=== PATIENT | female | born 1935 | race Caucasian/White ===

== ENCOUNTER 2017-09-24 10:55 | Day surgery (SDC) | payer OTHER ==
[2017-09-24] MEDS ORDERED: NA CHLORIDE 0.9% 1,000 ML ONE (12:01)
[2017-09-24] MEDS ORDERED: LIDOCAINE 4% TOP SOLUTION TOP ONE (13:01)
[2017-09-24] MEDS: GLYCOPYRROLATE 0.2 MG/ML SYR ONE ×2 (13:06→13:15)
[2017-09-24] MEDS: Phenylephrine HCl 10 MG/ML 1 ML VIAL ONE ×2 (13:07→13:26)
[2017-09-24] MEDS: LIDOCAINE VISCOUS 2% SOLN 15 ML UDC ONE ×2 (13:07→13:36)
[2017-09-24] MEDS: LIDOCAINE 1% MPF 5 ML VIAL ONE ×2 (13:08→13:38)
[2017-09-24] MEDS ORDERED: PROPOFOL 200 MG/20 ML VIAL IV ONE (13:34)
[2017-09-24] MEDS ORDERED: LIDOCAINE 1% MPF 5 ML VIAL ONE (13:34)
--- NOTE | 2017-09-24 14:30 | RAD REPORT ---
EXAM DESCRIPTION: RAD - FLUORO-GUIDE FOR BRONCH UPT1HR - 09/24/2017 2:17 pm CLINICAL HISTORY: Right lung infection FINDINGS: One fluoroscopic spot image is submitted. Fluoroscopy time 14 seconds. A bronchoscope has its tip in the right upper lobe Bronchoscopy was performed by Dr. Black
[2017-09-24 14:54] VITALS: TEMP 97.3
[2017-09-24 14:57] VITALS: BP 155/59; O2SAT 99
--- NOTE | 2017-10-30 11:19 | P.OP ---
Date of Service: 09/24/17 (Bronchoscopy with right upper lobe BAL) Findings and Operative Technique Patient is 82 years of age evaluated by me for a right upper lobe cavitary lesions this some changes in the right middle lobe bronchoscopy was done to rule out an infectious process Negative report after draining informed consent from the patient she is premedicated by anesthesia finding normal vocal cords normal trachea normal ping formal right and left-sided bronchial anatomy BAL was performed from the right upper lobe patient tolerated the procedure very well
== END 2017-09-24 14:40 | disposition home or self-care (01) ==
LOC: OR 10:55
PROVIDERS: ATTEND Internal Medicine Sleep Medicine
PROC: 0B9C8ZX Drainage of Right Upper Lung Lobe, Via Natural or Artificial Opening Endoscopic, Diagnostic (ICD-10-PCS; principal; 2017-09-24 12:00)
DX: J44.9 Chronic obstructive pulmonary disease, unspecified (principal); E11.9 Type 2 diabetes mellitus without complications; I10 Essential (primary) hypertension; J30.9 Allergic rhinitis, unspecified
CPT/HCPCS: 31624; 76000; 82962; 87015; 87102; 87116; 87206; 88108; 88305; 88312 ×2; J2370; J7030

== ENCOUNTER 2019-01-18 09:45 | Observation (INO) | payer OTHER ==
[2019-01-18] MEDS ORDERED: METHYLPREDNISOLONE 125 MG INJ ONE (10:34)
[2019-01-18] MEDS ORDERED: LEVALBUTEROL 1.25 MG/3 ML NEB ONE (10:35)
[2019-01-18 10:56] LABS: Basophils % 0.6 % (0-1.3); Hematocrit 42.2 % (36.0-45.0); Lymphocytes % 12.6 % (15.3-44.8); MPV 9.8 fL (7.6-11.3); RBC Red Blood Cell Count 4.72 M/uL (3.86-4.86)
--- NOTE | 2019-01-18 11:05 | RAD REPORT ---
EXAM DESCRIPTION: Miguel Single View01/18/2019 10:56 am CLINICAL HISTORY: Shortness of breath COMPARISON: September 2018 FINDINGS: The approximately 6 centimeter right upper lobe cavitary mass is minimally enlarged from the prior exam. Mild left upper lobe opacity unchanged Mild right basilar opacities have progressed. The heart is mildly to moderately enlarged IMPRESSION: A 6 centimeter right upper lobe cavitary mass mildly enlarged from the prior exam could represent infection or neoplasm Mild right basilar opacities may represent pneumonia
[2019-01-18 11:15] LABS: BUN Blood Urea Nitrogen 11 mg/dL (7-18); Bicarbonate 25 mmol/L (21-32); Glucose Level 157 mg/dL (74-106); NT PRO-BNP 359 pg/mL (<450); Potassium 3.9 mmol/L (3.5-5.1); Sodium Level 139 mmol/L (136-145); Troponin (Emerg Dept Use Only) < 0.02 ng/mL (0.0-0.045)
--- NOTE | 2019-01-18 11:29 | EDPHYS ---
Physician Documentation [facility] Name: Su Clayton Age: 83 yrs Sex: Female : 1935 Arrival Date: 01/18/2019 Time: 09:47 Bed 23 Private MD: ED Physician Valdez Pinto HPI: 01/18 10:36 This 83 yrs old Female presents to ER via Wheelchair with complaints of rn Shortness Of Breath. 10:36 The patient has shortness of breath at rest, with light activity. Onset: The rn symptoms/episode began/occurred at an unknown time. Duration: The symptoms are continuous. The patient's shortness of breath is aggravated by coughing, exertion, talking, walking. Associated signs and symptoms: Pertinent positives: productive cough, Pertinent negatives: fever, hemoptysis, loss of consciousness. Severity of symptoms: At their worst the symptoms were mild in the emergency department the symptoms are unchanged. The patient has not experienced similar symptoms in the past. The patient has not recently seen a physician. REports sob, sent by pcp after during visit noted to have oxygen saturation of 75%, has COPD, reports productive cough, no fever, + congestion and cold symptoms. No chest pain/abd pain/hemoptysis/weight loss. NOt on home O2.. Historical: - Allergies: 10:16 No Known Allergies; ca1 - Home Meds: 12:23 amlodipine 10 mg tab 1 tab once daily [Active]; atorvastatin 40 mg oral tab 1 tab once ca1 daily [Active]; clopidogrel 75 mg oral tab 1 tab once daily [Active]; calcium 600mg 1 tab daily [Active]; vitamin E39-wjict acid 500-400 mcg oral tab [Active]; Vitamin C 500 mg Oral tab [Active]; Combivent Inhl [Active]; glucosamine sulfate oral oral [Active]; MSM 1,000 mg oral tab [Active]; Zyrtec Oral [Active]; Nasal [place] 12 Hour nasal nasal [Active]; - PMHx: 10:16 COPD; Hypertension; niidm; Hyperlipidemia; ca1 - PSHx: 10:16 Carotid surgery; L wrist Surgery; ca1 - Immunization history:: Adult Immunizations not up to date. - Social history:: Smoking status: Patient/guardian denies using tobacco, the patient reports quitting approximately 13 years ago. - Ebola Screening: : Patient negative for fever greater than or equal to 101.5 degrees Fahrenheit, and additional compatible Ebola Virus Disease symptoms Patient denies exposure to infectious person Patient denies travel to an Ebola-affected area in the 21 days before illness onset No symptoms or risks identified at this time. - Family history:: not pertinent. - Hospitalizations: : No recent hospitalization is reported. ROS: 10:36 Constitutional: Negative for fever, chills, and weight loss, Eyes: Negative for injury, rn pain, redness, and discharge, Neck: Negative for injury, pain, and swelling, Cardiovascular: Negative for chest pain, palpitations, + mild edema of feet Respiratory: + sob and cough Abdomen/GI: Negative for abdominal pain, nausea, vomiting, diarrhea, and constipation, MS/Extremity: Negative for injury and deformity, Skin: Negative for injury, rash, and discoloration, Neuro: Negative for headache, weakness, numbness, tingling, and seizure. Exam: 10:38 Constitutional: This is a well developed, well nourished patient who is awake, alert, rn and in no acute distress. Head/Face: Normocephalic, atraumatic. Eyes: Pupils equal round and reactive to light, extra-ocular motions intact. Lids and lashes normal. Conjunctiva and sclera are non-icteric and not injected. Cornea within normal limits. Periorbital areas with no swelling, redness, or edema. ENT: MMM Cardiovascular: Regular rate and rhythm. No pulse deficits. Respiratory: + mild tachypnea, no retractions, + diminished airflow at bases with faint wheezing Abdomen/GI: soft, non-tender MS/ Extremity: Pulses equal, no cyanosis. Neurovascular intact. Full, normal range of motion. Equal circumference. Neuro: Awake and alert, GCS 15, oriented to person, place, time, and situation. Cranial nerves II-XII grossly intact. Motor strength 5/5 in all extremities. Sensory grossly intact. 10:40 ECG was reviewed by the Attending Physician. rn Vital Signs: 10:12 BP 162 / 59; Pulse 90; Resp 22 S; Temp 97.8(O); Pulse Ox 82% on R/A; Weight 72.57 kg ca1 (R); Height 5 ft. 2 in. (157.48 cm) (R); Pain 0/10; 10:12 Pulse Ox 93% on 2 lpm NC; ca1 11:00 BP 155 / 54; Pulse 96; Resp 20 S; Pulse Ox 99% on Nebulizer Mask; ca1 12:16 BP 132 / 54; Pulse 101; Resp 21; Pulse Ox 94% on 2 lpm NC; ca1 12:38 BP 109 / 57; Pulse 98; Resp 20; Pulse Ox 92% on 2 lpm NC; ca1 13:44 BP 129 / 56; Pulse 90; Resp 19; Temp 98.2(O); Pulse Ox 91% on 2 lpm NC; ca1 10:12 Body Mass Index 29.26 (72.57 kg, 157.48 cm) ca1 MDM: 10:08 Patient medically screened. rn 11:26 Differential diagnosis: Chronic Obstructive Pulmonary Disease Myocardial Infarction rn pneumonia, Pneumothorax pulmonary edema, reactive airway disease, Sepsis. Data reviewed: vital signs, nurses notes, lab test result(s), EKG, radiologic studies, plain films, and as a result, I will admit patient. 11:27 Admission orders: after a detailed discussion of the patient's condition and case, the delivery rn orders are written by me. 01/18 10:19 Order name: Blood Culture Adult (2) rn 01/18 10:19 Order name: BMP; Complete Time: 11: rn 01/18 10:19 Order name: CBC with Diff; Complete Time: : rn 01/18 10:19 Order name: NT PRO-BNP; Complete Time: 11: rn 01/18 10:19 Order name: Troponin (emerg Dept Use Only); Complete Time: 11: rn 01/18 10:19 Order name: Flu; Complete Time: 11: rn 01/18 10:19 Order name: XRAY CXR (1 view); Complete Time: 11: rn 01/18 10:19 Order name: EKG; Complete Time: 10:20 rn 01/18 10:19 Order name: Procalcitonin rn 01/18 11:23 Order name: CT Chest W/ Con rn 01/18 10:19 Order name: Cardiac monitoring; Complete Time: 10:33 rn 01/18 10:19 Order name: EKG - Nurse/Tech; Complete Time: 10:33 rn 01/18 10:19 Order name: IV Saline Lock; Complete Time: 10:50 rn 01/18 10:19 Order name: Labs collected and sent; Complete Time: 10:50 rn 01/18 10:19 Order name: O2 Per Protocol; Complete Time: 10:33 rn 01/18 10:19 Order name: O2 Sat Monitoring; Complete Time: 10:33 rn 01/18 12:37 Order name: Diet Heart Healthy; Complete Time: 12:38 ca1 EC:40 Rate is 86 beats/min. Rhythm is regular. QRS Trilla is Normal. NH interval is normal. QRS rn interval is normal. QT interval is normal. No Q waves. T waves are Normal. No ST changes noted. Clinical impression: Normal ECG. Interpreted by me. Reviewed by me. Administered Medications: 10:36 Drug: Xopenex (3) 1.25 mg Route: Inhalation; ca1 10:50 Drug: SOLU-Medrol 125 mg Route: IVP; Site: right antecubital; ca1 12:37 Follow up: Response: No adverse reaction; Marked relief of symptoms ca1 12:00 Drug: Rocephin - (cefTRIAXone) 1 grams Route: IVPB; Infused Over: 30 mins; Site: right ca1 antecubital; 12:37 Follow up: Response: No adverse reaction; IV Status: Completed infusion ca1 12:36 Drug: Zithromax 500 mg Route: IVPB; Infused Over: 1 hrs; Site: right antecubital; ca1 13:50 Follow up: Response: No adverse reaction; IV Status: Completed infusion ca1 Disposition: 01/18/19 11:27 Hospitalization ordered by Rashawn Noguera for Inpatient Admission. Preliminary diagnosis are Pneumonia, Chronic obstructive pulmonary disease with acute lower respiratory infection, Dyspnea, unspecified. - Bed requested for Telemetry/MedSurg (Inpatient). - Status is Inpatient Admission. ca1 - Condition is Stable. - Problem is new. - Symptoms have improved. UTI on Admission? No Signatures: Dispatcher [employer] EDMS Darcy Trent Roman, MD MD rn Acob, SUPRIYA Geronimo RN ca1 Corrections: (The following items were deleted from the chart) 10:38 10:36 Constitutional: Negative for fever, chills, and weight loss, Eyes: Negative for rn injury, pain, redness, and discharge, Neck: Negative for injury, pain, and swelling, Cardiovascular: Negative for chest pain, palpitations, and edema, Respiratory: + sob and cough Abdomen/GI: Negative for abdominal pain, nausea, vomiting, diarrhea, and constipation, rn 12:43 11:27 Hospitalization Ordered by Rashawn Noguera DO for Inpatient Admission. Preliminary bd diagnosis is Pneumonia; Chronic obstructive pulmonary disease with acute lower respiratory infection; Dyspnea, unspecified. Bed requested for Telemetry/MedSurg (Inpatient). Status is Inpatient Admission. Condition is Stable. Problem is new. Symptoms have improved. UTI on Admission? No. rn 14:05 12:43 01/18/2019 11:27 Hospitalization Ordered by Rashawn Noguera DO for Inpatient ca1 Admission. Preliminary diagnosis is Pneumonia; Chronic obstructive pulmonary disease with acute lower respiratory infection; Dyspnea, unspecified. Bed requested for Telemetry/MedSurg (Inpatient). Status is Inpatient Admission. Condition is Stable. Problem is new. Symptoms have improved. UTI on Admission? No. bd
--- NOTE | 2019-01-18 11:29 | ER ---
Nurse's Notes [facility] Name: Su Clayton Age: 83 yrs Sex: Female : 1935 Arrival Date: 01/18/2019 Time: 09:47 Bed 23 Private MD: Diagnosis: Pneumonia;Chronic obstructive pulmonary disease with acute lower respiratory infection;Dyspnea, unspecified Presentation: 01/18 10:12 Presenting complaint: Patient states: "I was at the PCP, they sent me here for for low ca1 O2 level. They said it was a 75%" Reports SOB on exertion for about a month now. DENIES any pain, dizziness, lightheadedness, nausea. Swelling on both feet noted. Transition of care: patient was received from another setting of care (ambulatory primary care physician practice). Onset of symptoms was January 18, 2019. Risk Assessment: Do you want to hurt yourself or someone else? Patient reports no desire to harm self or others. Initial Sepsis Screen: Does the patient meet any 2 criteria? No. Patient's initial sepsis screen is negative. Does the patient have a suspected source of infection? No. Patient's initial sepsis screen is negative. Care prior to arrival: None. 10:12 Method Of Arrival: Wheelchair ca1 10:12 Acuity: MARLINE 2 ca1 Triage Assessment: 10:16 General: Appears in no apparent distress. comfortable, Behavior is calm, cooperative, ca1 appropriate for age. Pain: Denies pain. Respiratory: Reports shortness of breath on exertion since a month ago Onset: The symptoms/episode began/occurred about a month ago, the patient has moderate shortness of breath. Historical: - Allergies: 10:16 No Known Allergies; ca1 - Home Meds: 12:23 amlodipine 10 mg tab 1 tab once daily [Active]; atorvastatin 40 mg oral tab 1 tab once ca1 daily [Active]; clopidogrel 75 mg oral tab 1 tab once daily [Active]; calcium 600mg 1 tab daily [Active]; vitamin D69-ewilz acid 500-400 mcg oral tab [Active]; Vitamin C 500 mg Oral tab [Active]; Combivent Inhl [Active]; glucosamine sulfate oral oral [Active]; MSM 1,000 mg oral tab [Active]; Zyrtec Oral [Active]; Nasal [place] 12 Hour nasal nasal [Active]; - PMHx: 10:16 COPD; Hypertension; niidm; Hyperlipidemia; ca1 - PSHx: 10:16 Carotid surgery; L wrist Surgery; ca1 - Immunization history:: Adult Immunizations not up to date. - Social history:: Smoking status: Patient/guardian denies using tobacco, the patient reports quitting approximately 13 years ago. - Ebola Screening: : Patient negative for fever greater than or equal to 101.5 degrees Fahrenheit, and additional compatible Ebola Virus Disease symptoms Patient denies exposure to infectious person Patient denies travel to an Ebola-affected area in the 21 days before illness onset No symptoms or risks identified at this time. - Family history:: not pertinent. - Hospitalizations: : No recent hospitalization is reported. Screenin:05 Abuse screen: Denies threats or abuse. Denies injuries from another. Nutritional ca1 screening: No deficits noted. Tuberculosis screening: No symptoms or risk factors identified. Fall Risk IV access (20 points). Ambulatory Aid- Crutches/Cane/Walker (15 pts). Total Shaw Fall Scale indicates Low Risk Score (25-44 pts). Fall prevention measures have been instituted. Side Rails Up X 2 Family Present and informed to notify staff if they need to leave bedside As available Patient and Family Educated on Fall Prevention Program and strategies. Assessment: 10:05 General: Appears in no apparent distress. comfortable, Behavior is calm, cooperative, ca1 appropriate for age. 10:05 Pain: Denies pain. Neuro: Level of Consciousness is awake, alert, obeys commands, ca1 Oriented to person, place, time, situation. Cardiovascular: Heart tones S1 S2 present Capillary refill < 3 seconds Patient's skin is warm and dry. Edema is 1+ to left foot, left toes, right foot and right toes Rhythm is sinus rhythm. Respiratory: Reports shortness of breath on exertion since a month ago cough that is productive, Airway is patent Respiratory effort is even, unlabored, Breath sounds are diminished in right posterior middle lobe and right posterior lower lobe. GI: Abdomen is flat, non-distended, Bowel sounds present X 4 quads. Abd is soft and non tender X 4 quads. Patient currently denies nausea. : No deficits noted. No signs and/or symptoms were reported regarding the genitourinary system. EENT: Reports nasal congestion. Derm: Skin is intact, is healthy with good turgor, Skin is pink, warm \\T\\ dry. Musculoskeletal: Circulation, motion, and sensation intact. Capillary refill < 3 seconds, Range of motion: intact in all extremities. 11:00 Reassessment: Patient appears in no apparent distress at this time. Patient and/or ca1 family updated on plan of care and expected duration. Pain level reassessed. Patient is alert, oriented x 3, equal unlabored respirations, skin warm/dry/pink. 11:42 Reassessment: Dr. Noguera at bedside. ca1 12:16 Reassessment: Patient appears in no apparent distress at this time. Patient and/or ca1 family updated on plan of care and expected duration. Pain level reassessed. Patient is alert, oriented x 3, equal unlabored respirations, skin warm/dry/pink. 12:38 Reassessment: Patient appears in no apparent distress at this time. Patient is alert, ca1 oriented x 3, equal unlabored respirations, skin warm/dry/pink. Pt eating crackers, family still at bedside. Awaiting room assignment. 12:51 Reassessment: Called for report nurse will call back. Nurse taking report from ICU. ca1 13:19 Reassessment: Called for report. Nurse will call back. ca1 13:44 Reassessment: Patient appears in no apparent distress at this time. Patient is alert, ca1 oriented x 3, equal unlabored respirations, skin warm/dry/pink. Pt assisted to bedside commode. Vital Signs: 10:12 BP 162 / 59; Pulse 90; Resp 22 S; Temp 97.8(O); Pulse Ox 82% on R/A; Weight 72.57 kg ca1 (R); Height 5 ft. 2 in. (157.48 cm) (R); Pain 0/10; 10:12 Pulse Ox 93% on 2 lpm NC; ca1 11:00 BP 155 / 54; Pulse 96; Resp 20 S; Pulse Ox 99% on Nebulizer Mask; ca1 12:16 BP 132 / 54; Pulse 101; Resp 21; Pulse Ox 94% on 2 lpm NC; ca1 12:38 BP 109 / 57; Pulse 98; Resp 20; Pulse Ox 92% on 2 lpm NC; ca1 13:44 BP 129 / 56; Pulse 90; Resp 19; Temp 98.2(O); Pulse Ox 91% on 2 lpm NC; ca1 10:12 Body Mass Index 29.26 (72.57 kg, 157.48 cm) ca1 ED Course: 09:47 Patient arrived in ED. mr 10:05 Patient has correct armband on for positive identification. Placed in gown. Bed in low ca1 position. Call light in reach. Side rails up X2. monitor car operator on. Pulse ox on. NIBP on. Warm blanket given. Head of bed elevated. 10:08 Valdez Pinto MD is Attending Physician. rn 10:12 Grazyna Brooke RN is Primary Nurse. ca1 10:12 Arm band placed on right wrist. EKG completed in triage. Results shown to MD. ca1 10:14 Triage completed. ca1 10:51 No provider procedures requiring assistance completed. Inserted saline lock: 20 gauge ca1 in right antecubital area, using aseptic technique. Blood collected. 10:51 Initial lab(s) drawn, by me, sent to lab. First set of blood cultures drawn by me. ca1 10:57 XRAY CXR (1 view) In Process Unspecified. EDMS 11:20 Second set of blood cultures drawn by me. jp3 11:27 Rashawn Ngouera DO is Hospitalizing Provider. rn 11:54 CT Chest W/ Con In Process Unspecified. EDMS 13:24 Assisted to bedside commode. jp3 13:43 Patient admitted, IV remains in place. ca1 Administered Medications: 10:36 Drug: Xopenex (3) 1.25 mg Route: Inhalation; ca1 10:50 Drug: SOLU-Medrol 125 mg Route: IVP; Site: right antecubital; ca1 12:37 Follow up: Response: No adverse reaction; Marked relief of symptoms ca1 12:00 Drug: Rocephin - (cefTRIAXone) 1 grams Route: IVPB; Infused Over: 30 mins; Site: right ca1 antecubital; 12:37 Follow up: Response: No adverse reaction; IV Status: Completed infusion ca1 12:36 Drug: Zithromax 500 mg Route: IVPB; Infused Over: 1 hrs; Site: right antecubital; ca1 13:50 Follow up: Response: No adverse reaction; IV Status: Completed infusion ca1 Outcome: 11:27 Decision to Hospitalize by Provider. rn 13:43 Admitted to Med/surg accompanied by tech, family with patient, via stretcher, room 210, ca1 with oxygen, with chart, Report called to SUPRIYA Jamil 13:43 Condition: stable 13:43 Instructed on the need for admit. 14:05 Patient left the ED. ca1 Signatures: Dispatcher [employer] SELENAMS Phillips Lorin PintoValdez MD MD rn Price Croft jp3 Grazyna Brooke RN RN ca1 Corrections: (The following items were deleted from the chart) 10:51 10:51 General: Appears in no apparent distress. comfortable, ca1 ca1
[2019-01-18] MEDS ORDERED: CEFTRIAXONE/SWI 1gm 1 GM/10 ML SYR ONE (12:06)
--- NOTE | 2019-01-18 12:09 | EKG ---
Test Date: 2019-01-18 Test Time: 10:20:08 Mail Inserter: SHOSHANA MEASUREMENT RESULTS: Intervals: Rate: 86 WV: 132 QRSD: 70 QT: 366 QTc: 437 Jackson: P: 61 WV: 132 QRS: 59 T: 66 INTERPRETIVE STATEMENTS: Normal sinus rhythm Normal ECG No previous ECG available for comparison Electronically Signed On 01-18-19 12:08:43 CDT by Nikolai Bejarano
--- NOTE | 2019-01-18 12:12 | RAD REPORT ---
EXAM DESCRIPTION: CT - Thorax W/ Con - 01/18/2019 11:55 am CLINICAL HISTORY: sob COMPARISON: 2018 CT TECHNIQUE: Computed axial tomography of the chest was obtained. 100 cc Isovue 300 was administered i ntravenously. All CT scans are performed using dose optimization technique as appropriate and may include automated exposure control or mA/KV adjustment according to patient size. FINDINGS: Approximately 6 centimeter cavitary mass right upper lobe increased size. A thickened rind peripherally measures 7 millimeters. Rwoj-ea-krzrhgfa right middle lobe opacities. Mild right upper lobe opacities have developed. Tree-in -bud opacities right lung Chronic left upper lobe opacity probably scarring. Mild tree-in-bud opacities lingular No significant mediastinal or hilar lymphadenopathy is seen. A pleural effusion is not present. A pericardial effusion is not seen. IMPRESSION: Enlargement of a 6 centimeter cavitary mass right upper lobe. TB, fungal or other infect ion considered most likely. Bronchogenic carcinoma can also have this appearance. Mild to moderate additional right lung opacities likely pneumonia. Tree-in-bud opacities likely indic ate a component of atypical pneumonia COPD
[2019-01-18] MEDS ORDERED: AZITHROMYCIN IV 500 MG in NA CHLORIDE 0.9% 250 ML IVPB ONE (12:30)
[2019-01-18] MEDS ORDERED: ONDANSETRON 4 MG/2 ML VIAL IV PRN (14:09)
[2019-01-18] MEDS ORDERED: ACETAMINOPHEN 500 MG TAB PO PRN (14:09)
[2019-01-18] MEDS ORDERED: IPRATROPIUM BROM 0.5MG/2.5ML NEB PRN (14:09)
[2019-01-18] MEDS ORDERED: ALBUTEROL 2.5 MG/3 ML NEB SOL NEB PRN (14:09)
[2019-01-18] MEDS ORDERED: BENZONATATE 100 MG CAP PO PRN (14:09)
[2019-01-18 14:22] VITALS: BMI 29.2
--- NOTE | 2019-01-18 14:41 | P.HP ---
Certification for Inpatient Patient admitted to: Inpatient With expected LOS: >2 Midnights Patient will require the following post-hospital care: None Practitioner: I am a practitioner with admitting privileges, knowledge of patient current condition, hospital course, and medical plan of care. Services: Services provided to patient in accordance with Admission requirements found in Title 42 Section 412.3 of the Code of Federal Regulations Patient History Date of Service: 01/18/19 Primary Care Provider: Dr. Spain; Pulmonary-Dr. Black Reason for admission: Shortness of breath History of Present Illness: 83-year-old female with history of COPD, hypertension, hyperlipidemia , CAD and former tobacco use. Patient presented with shortness of breath. Patient came in with shortness of breath. She was actually seen by her PCP earlier. Room-air saturations were on 75%. Patient had reported increase cough , congestion and yellow sputum production. Patient denies any fever, chills. No sick contacts noted. She was sent to the ER for further evaluation. In the ER patient evaluated. Chest x-ray showed right upper lobe cavitary mass mildly enlarged from prior chest x-ray. Right lower lobe pneumonia was also suspected. White count 8.2, hemoglobin 14.2. Sodium 139, potassium 3.9, BUN of 11, creatinine 1.36 with a GFR of 37. Glucose 157. Troponin unremarkable. Pro calcitonin unremarkable. Patient initiated on antibiotic therapy. Patient admitted for further evaluation. When I saw the patient ER, she did not appear septic. Patient stable at this time. Patient with history of mycobacterium infection in 2018. Patient was treated. Allergies No Known Allergies Allergy (Verified 09/24/17 12:53) Home medications list reviewed: Yes Home Medications: Amlodipine [Norvasc*] 10 mg PO DAILY 01/18/19 Aspirin Chewable [Aspirin Chewable*] 81 mg PO DAILY 01/18/19 Atorvastatin Calcium [Lipitor] 40 mg PO BEDTIME 01/18/19 Clopidogrel Bisulfate [Plavix*] 75 mg PO DAILY 01/18/19 Ipratropium/Albuterol Sulfate [Combivent Respimat 20-100 Mcg] 1 puff IN TID PRN 01/18/19 - Past Medical/Surgical History Diabetic: No -: COPD -: Hypertension -: Hyperlipidemia -: CAD -: History of mycobacterium infection, treated -: Former tobacco use -: Arterial bypass of the left carotid artery -: Tubal ligation Psychosocial/ Personal History: Patient is a . She lives by herself. - Family History Family History: Reviewed- Non-Contributory - Social History Smoking Status: Former smoker Alcohol use: No CD- Drugs: No Caffeine use: Yes Place of Residence: Home Review of Systems General: Weakness, As per HPI Eyes: Unremarkable ENT: Nose Congestion, As per HPI Respiratory: Cough, Shortness of Breath, SOB with Excertion, Sputum, As per HPI Cardiovascular: Unremarkable Gastrointestinal: Unremarkable Genitourinary: Unremarkable Musculoskeletal: Unremarkable Integumentary: Unremarkable Neurological: Unremarkable Lymphatics: Unremarkable Physical Examination - Vital Signs Temperature: 98.2 F Blood Pressure: 129/56 Pulse: 90 Respirations: 19 - Physical Exam General: Alert, In no apparent distress, Oriented x3, Cooperative HEENT: Atraumatic Neck: Supple Respiratory: Crackles/rales, Expiratory wheezes, Inspiratory wheezes Cardiovascular: Normal pulses, Regular rate/rhythm Gastrointestinal: Normal bowel sounds, Soft and benign, Non-distended, No tenderness, No masses, No rebound, No guarding Musculoskeletal: No erythema, No tenderness, No warmth Integumentary: No tenderness/swelling, No erythema, No warmth, No cyanosis Neurological: Normal speech, Normal strength at 5/5 x4 extr, Normal tone, Normal affect - Studies Laboratory Data (last 24 hrs) 01/18/19 10:45: WBC 8.2, Hgb 14.2, Hct 42.2, Plt Count 222 01/18/19 10:45: Sodium 139, Potassium 3.9, BUN 11, Creatinine 1.36 H, Glucose 157 H Microbiology Data (last 24 hrs): 01/18/19 10:37 Nasopharnyx Influenza Type A Antigen Screen - Final 01/18/19 10:37 Nasopharnyx Influenza Type B Antigen Screen - Final Assessment and Plan - Plan Impression: Acute on chronic respiratory failure with hypoxia secondary to right lower lobe pneumonia with noted 6 cm cavitary right upper lobe mass complicated with COPD exacerbation Hypertension Hyperlipidemia Carotid arterial disease Former tobacco use History of mycobacterium infection, treated 2017 Plan: Acute on chronic respiratory failure with hypoxia secondary to right lower lobe pneumonia with noted 6 cm cavitary right upper lobe mass complicated with COPD exacerbation: Patient will be admitted for further evaluation. Will maintain oxygen saturations above 93%. Will wean off oxygen. Will start IV antibiotic therapy. Will provide COPD medication. Provide DVT prophylaxis-Lovenox. Pulmonology consulted. Pulmonology has evaluated patient in the past. Will discuss CT finding. Will continue to monitor closely. Await further recommendation. Anticipate discharge in the next 2-4 days pending clinical improvement. Hypertension: Will need to restart home medication and monitor and adjust appropriately. Hyperlipidemia: Will need to restart home medication. Carotid arterial disease: Will need to restart home medic a Former tobacco use: Continue to address lifestyle modification education. History of mycobacterium infection, treated 2018: Previous lab reviewed. Patient treated by pulmonology in the past. Will recheck sputum for AFB, bacterial and fungal. Discharge Plan: Home Plan to discharge in: Greater than 2 days - Advance Directives Does patient have a Living Will: No Does patient have a Durable POA for Healthcare: No - Code Status/Comfort Care Code Status Assessed: Yes (Patient is full code) Time Spent Managing Pts Care (In Minutes): 55
[2019-01-18] MEDS: ENOXAPARIN 40 MG/0.4 ML SQ SCH (15:00)
[2019-01-18] MEDS: CEFTRIAXONE/SWI 1gm 1 GM/10 ML SYR IVP SCH (20:16)
[2019-01-18] MEDS: GUAIFENESIN 600 MG SA TAB PO SCH (20:16)
[2019-01-18] MEDS: predniSONE 10 MG TAB PO SCH (20:17)
[2019-01-18 20:19] LABS: Urine Appearance CLEAR; Urine Bilirubin NEGATIVE (NEG); Urine Blood NEGATIVE (NEG); Urine Color YELLOW; Urine Glucose NEGATIVE (NEG); Urine Microscopic Reflex ORDER UMIC; Urine Protein 1+ (NEG); Urine Specific Gravity >=1.030 (1.005-1.030); Urine Urobilinogen 0.2 mg/dL (0.2-1.0); Urine pH 5.5 (5.0-7.0)
[2019-01-18] MEDS ORDERED: ATORVASTATIN 40 MG TAB PO SCH (21:00)
[2019-01-18 21:13] LABS: Urine Culture Reflex Order REFLEXED
[2019-01-18 21:14] LABS: Urine Bacteria <20 /HPF (<20); Urine RBC <5 /HPF (NONE SEEN)
[2019-01-19 05:51] LABS: Absolute Lymphocytes (CBC) 0.9 K/uL (0.7-4.9); Basophils % 0.1 % (0-1.3); Hematocrit 38.9 % (36.0-45.0); Lymphocytes % 9.6 % (15.3-44.8); MPV 10.3 fL (7.6-11.3); RBC Red Blood Cell Count 4.34 M/uL (3.86-4.86)
[2019-01-19 06:07] LABS: Magnesium 1.8 mg/dL (1.8-2.4); Potassium 4.3 mmol/L (3.5-5.1)
--- NOTE | 2019-01-19 07:56 | RAD REPORT ---
EXAM DESCRIPTION: Miguel Montiel And Cammie (2 Views)01/19/2019 6:55 am CLINICAL HISTORY: Cough COMPARISON: January 18 FINDINGS: No change in the right upper lobe cavitary mass. No change in the mild to moderate right lung opacities consistent with pneumonia. The heart is mildly enlarged Lungs are hyperaerated
[2019-01-19 07:57] VITALS: O2SAT 93
--- NOTE | 2019-01-19 08:09 | P.PN ---
Subjective Date of Service: 01/19/19 Primary Care Provider: Dr. Spain; Pulmonary-Dr. Black Chief Complaint: Shortness of breath Subjective: Improving (Patient feeling better. Less cough today.) Physical Examination - Vital Signs Temperature: 97.6 F Blood Pressure: 152/65 Pulse: 89 Respirations: 18 Pulse Ox (%): 93 - Physical Exam General: Alert, In no apparent distress, Oriented x3, Cooperative HEENT: Atraumatic Neck: Supple Respiratory: Crackles/rales (To the right base), Expiratory wheezes (Mild bilateral) Cardiovascular: Normal pulses, Regular rate/rhythm Gastrointestinal: Normal bowel sounds, Soft and benign, Non-distended, No tenderness, No masses, No rebound, No guarding Musculoskeletal: No erythema, No tenderness, No warmth Integumentary: No tenderness/swelling, No erythema, No warmth, No cyanosis Neurological: Normal speech, Normal strength at 5/5 x4 extr, Normal tone, Normal affect - Studies Laboratory Data (last 24 hrs) 01/18/19 10:45: WBC 8.2, Hgb 14.2, Hct 42.2, Plt Count 222 01/18/19 10:45: Sodium 139, Potassium 3.9, BUN 11, Creatinine 1.36 H, Glucose 157 H Microbiology Data (last 24 hrs): 01/18/19 10:37 Nasopharnyx Influenza Type A Antigen Screen - Final 01/18/19 10:37 Nasopharnyx Influenza Type B Antigen Screen - Final Medications List Reviewed: Yes Assessment & Plan Discharge Plan: Home Plan to discharge in: 48 Hours Physician Review Additional Text: Impression: Acute on chronic respiratory failure with hypoxia secondary to right lower lobe pneumonia with noted 6 cm cavitary right upper lobe mass complicated with COPD exacerbation Hypertension Hyperlipidemia Carotid arterial disease Former tobacco use History of mycobacterium infection, treated 2017 Plan: Acute on chronic respiratory failure with hypoxia secondary to right lower lobe pneumonia with noted 6 cm cavitary right upper lobe mass complicated with COPD exacerbation: Patient has improved. Continue to wean off oxygen. Patient may require oxygen at discharge. Will consult social services specialist to help in this. Continue IV antibiotic therapy. Continue COPD medication. Patient on DVT prophylaxis-Lovenox. Will discuss further with pulmonology. Sputum cultures obtained for AFB, fungal and bacteria. Will have physical therapy assess ambulation. Likely discharge in the next 2-3 days pending clinical improvement. Will discuss plan of care with pulmonology. Hypertension: Norvasc restarted. Will adjust appropriately. Hyperlipidemia: Home medication restarted. Carotid arterial disease: Continue with aspirin/Plavix. Patient on DVT prophylaxis-Lovenox. Former tobacco use: Continue to address lifestyle modification education. History of mycobacterium infection, treated 2018: Previous lab reviewed. Patient treated by pulmonology in the past. CT scan reviewed. Await recommendations by pulmonology. Sputum for AFB, bacterial and fungal obtained. Time Spent Managing Pts Care (In Minutes): 55
--- NOTE | 2019-01-19 08:19 | ECHO ---
HEIGHT: 5 ft 2 in WEIGHT: 160 lb 0 oz DATE OF STUDY: 01/18/[address]: Rashawn Noguera DO 2-DIMENSIONAL: YES M.MODE: YES DOPPLER: YES COLOR FLOW: YES TDS: NO PORTABLE: NO DEFINITY: NO BUBBLE STUDY: NO DIAGNOSIS: SHORTNESS OF BREATH CARDIAC HISTORY: CATHERIZATION: NO SURGERY: NO PROSTHETIC VALVE: NO PACEMAKER: NO MEASUREMENTS (cm) DIASTOLIC (NORMALS) SYSTOLIC (NORMALS) IVSd 0.8 (0.6-1.2) LA Diam 3.0 (1.9-4.0) LVEF 70% LVIDd 4.5 (3.5-5.7) LVIDs 2.7 (2.0-3.5) %FS 40% LVPWd 0.9 (0.6-1.2) Ao Diam 2.4 (2.0-3.7) 2 DIMENSIONAL ASSESSMENT: RIGHT ATRIUM: NORMAL LEFT ATRIUM: NORMAL RIGHT VENTRICLE: NORMAL LEFT VENTRICLE: NORMAL TRICUSPID VALVE: NORMAL MITRAL VALVE: NORMAL PULMONIC VALVE: NORMAL AORTIC VALVE: NORMAL PERICARDIAL EFFUSION: NONE AORTIC ROOT: NORMAL LEFT VENTRICULAR WALL MOTION: NORMAL DOPPLER/COLOR FLOW: NORMAL COMMENTS: NORMAL 2D ECHOCARDIOGRAM WITH DOPPLER. NO WALL MOTION ABNORMALITY. NO EFFUSION. TECHNOLOGIST: Stefani PERSAUD
[2019-01-19] MEDS: predniSONE 10 MG TAB PO SCH (08:34)
[2019-01-19] MEDS: ENOXAPARIN 40 MG/0.4 ML SQ SCH (08:34)
[2019-01-19] MEDS: GUAIFENESIN 600 MG SA TAB PO SCH (08:34)
[2019-01-19] MEDS: CEFTRIAXONE/SWI 1gm 1 GM/10 ML SYR IVP SCH (08:34)
[2019-01-19 08:44] LABS: Blood Morphology Comment NOT SEEN (NOT SEEN); Platelet Estimate ADEQ
[2019-01-19] MEDS ORDERED: AZITHROMYCIN IV 500 MG in NA CHLORIDE 0.9% 250 ML IVPB SCH (09:00)
[2019-01-19] MEDS ORDERED: CLOPIDOGREL 75 MG TABLET PO SCH (09:00)
[2019-01-19] MEDS ORDERED: ASPIRIN EC 81 MG TAB PO SCH (09:00)
[2019-01-19] MEDS ORDERED: MAGNESIUM SULFATE 1 gm IVPB 1 GM/100 ML BAG IV ONE (09:00)
[2019-01-19] MEDS ORDERED: AMLODIPINE 5 MG TAB PO SCH (09:00)
--- NOTE | 2019-01-19 10:25 | P.DS ---
Admission Date: 01/18/19 Discharge Date: 01/19/19 Primary Care Provider: Dr. Spain; Pulmonary-Dr. Black Disposition: CT HOME/HOME HEALTH CARE Discharge Condition: GOOD Reason for Admission: Shortness of breath Consultations: Pulmonary-Dr. Black Procedures: CT scan: FINDINGS: Approximately 6 centimeter cavitary mass right upper lobe increased size. A thickened rind peripherally measures 7 millimeters. [id number] right middle lobe opacities. Mild right upper lobe opacities have developed. Tree-in-bud opacities right lung Chronic left upper lobe opacity probably scarring. Mild tree-in-bud opacities lingular No significant mediastinal or hilar lymphadenopathy is seen. A pleural effusion is not present. A pericardial effusion is not seen. IMPRESSION: Enlargement of a 6 centimeter cavitary mass right upper lobe. TB, fungal or other infection considered most likely. Bronchogenic carcinoma can also have this appearance. Mild to moderate additional right lung opacities likely pneumonia. Tree-in-bud opacities likely indicate a component of atypical pneumonia COPD ECHO: Ejection fraction 70% LEFT VENTRICULAR WALL MOTION: NORMAL DOPPLER/COLOR FLOW: NORMAL COMMENTS: NORMAL 2D ECHOCARDIOGRAM WITH DOPPLER. NO WALL MOTION ABNORMALITY. NO EFFUSION. Medical Problem List: Acute on chronic respiratory failure with hypoxia secondary with COPD exacerbation Hypertension Hyperlipidemia Carotid arterial disease Former tobacco use History of mycobacterium infection, treated 2018 Chronic renal disease stage III Brief History of Present Illness: 83-year-old female with history of COPD, hypertension, hyperlipidemia , CAD and former tobacco use. Patient presented with shortness of breath. Patient came in with shortness of breath. She was actually seen by her PCP earlier. Room-air saturations were on 75%. Patient had reported increase cough , congestion and yellow sputum production. Patient denies any fever, chills. No sick contacts noted. She was sent to the ER for further evaluation. In the ER patient evaluated. Chest x-ray showed right upper lobe cavitary mass mildly enlarged from prior chest x-ray. Right lower lobe pneumonia was also suspected. White count 8.2, hemoglobin 14.2. Sodium 139, potassium 3.9, BUN of 11, creatinine 1.36 with a GFR of 37. Glucose 157. Troponin unremarkable. Pro calcitonin unremarkable. Patient initiated on antibiotic therapy. Patient admitted for further evaluation. When I saw the patient ER, she did not appear septic. Patient stable at this time. Patient with history of mycobacterium infection in 2018. Patient was treated. Hospital Course: Patient presented with acute on chronic respiratory failure with hypoxia. Patient was admitted for further evaluation. White count remained within normal range. Pro calcitonin unremarkable. COPD exacerbation was suspected. Pulmonology was consulted who is very familiar with the patient. CT scan showed enlargement of a 6 cm cavitary right upper lobe area. 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 Pulmonology does not see any evidence of pneumonia at this time. No need for antibiotics. Respiratory failure and hypoxia likely related to COPD exacerbation as patient has severe disease. Patient responded to COPD treatment well. At discharge patient will continue with prednisone 20 mg 1 pill twice daily for 5 days then 1 pill once daily for 5 days. Arrangements for home oxygen and nebulizer machine will be arranged to maintain sats above 93%. Patient will continue with her COPD medication-Combivent 1 puff 3 times a day as needed for shortness of breath. Brovana 1 unit dose twice daily will be added. Recommend follow up with pulmonology in 1-2 weeks to follow up this hospitalization. Sputum cultures for AFB, fungal and bacteria have been sent. This will be followed up by pulmonology. Patient may require further evaluation of the cavitary lesion. Patient may require further intervention like biopsy or bronchoscopy. This will be further addressed by pulmonology. Patient with hyperlipidemia. At discharge she will continue with her medication -Lipitor 40 mg daily. Patient with history of carotid arterial disease. At discharge she will continue with her medication-aspirin 81 mg daily and Plavix 75 mg daily. Patient with hypertension. At discharge she will continue with Norvasc 10 mg daily. Patient with history of chronic renal disease stage III. This has remained stable. Recommend to recheck BMP in 2-4 weeks to monitor her progress. Recommend no further use of nonsteroidal anti-inflammatories. Future medications will need to be renally dosed. Vital Signs/Physical Exam: Temp Pulse Resp BP Pulse Ox 97.6 F 89 18 152/65 H 93 01/19/19 08:08 01/19/19 08:37 01/19/19 08:08 01/19/19 08:37 01/19/19 08:08 General: Alert, In no apparent distress, Oriented x3, Cooperative HEENT: Atraumatic Neck: Supple Respiratory: Clear to auscultation bilaterally, Normal air movement Cardiovascular: Normal pulses, Regular rate/rhythm Gastrointestinal: Normal bowel sounds, Soft and benign, Non-distended, No tenderness, No masses, No rebound, No guarding Musculoskeletal: No erythema, No tenderness, No warmth Integumentary: No tenderness/swelling, No erythema, No warmth, No cyanosis Neurological: Normal speech, Normal strength at 5/5 x4 extr, Normal tone, Normal affect Laboratory Data at Discharge: WBC 9.0 K/uL (4.3-10.9) 01/19/19 05:14 Hgb 12.9 g/dL (12.0-15.0) 01/19/19 05:14 Hct 38.9 % (36.0-45.0) 01/19/19 05:14 Plt Count 224 K/uL (152-406) 01/19/19 05:14 Sodium 141 mmol/L (136-145) 01/19/19 05:14 Potassium 4.3 mmol/L (3.5-5.1) 01/19/19 05:14 BUN 20 mg/dL (7-18) H 01/19/19 05:14 Creatinine 1.30 mg/dL (0.55-1.3) 01/19/19 05:14 Glucose 146 mg/dL (74-106) H 01/19/19 05:14 Magnesium 1.8 mg/dL (1.8-2.4) 01/19/19 05:14 Home Medications: Amlodipine [Norvasc*] 10 mg PO DAILY 01/18/19 Aspirin Chewable [Aspirin Chewable*] 81 mg PO DAILY 01/18/19 Atorvastatin Calcium [Lipitor] 40 mg PO BEDTIME 01/18/19 Clopidogrel Bisulfate [Plavix*] 75 mg PO DAILY 01/18/19 Ipratropium/Albuterol Sulfate [Combivent Respimat 20-100 Mcg] 1 puff IN TID PRN 01/18/19 Arformoterol Tartrate [Brovana] 15 mcg NEB BIDRESP #60 vial.neb 01/19/19 predniSONE [Prednisone*] 20 mg PO SEECOM #15 tab 01/19/19 New Medications: Arformoterol Tartrate [Brovana] 15 mcg NEB BIDRESP #60 vial.neb predniSONE [Prednisone*] 20 mg PO SEECOM #15 tab Patient Discharge Instructions: 1. Recommend follow up with her PCP in 1-2 weeks to follow up this hospitalization. 2. Patient presented with acute on chronic respiratory failure with hypoxia. Patient was admitted for further evaluation. White count remained within normal range. Pro calcitonin unremarkable. COPD exacerbation was suspected. Pulmonology was consulted who is very familiar with the patient. CT scan showed enlargement of a 6 cm cavitary right upper lobe area. 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 Pulmonology does not see any evidence of pneumonia at this time. No need for antibiotics. Respiratory failure and hypoxia likely related to COPD exacerbation as patient has severe disease. Patient responded to COPD treatment well. At discharge patient will continue with prednisone 20 mg 1 pill twice daily for 5 days then 1 pill once daily for 5 days. Arrangements for home oxygen and nebulizer machine will be arranged to maintain sats above 93%. Patient will continue with her COPD medication- Combivent 1 puff 3 times a day as needed for shortness of breath. Brovana 1 unit dose twice daily will be added. Recommend follow up with pulmonology in 1- 2 weeks to follow up this hospitalization. Sputum cultures for AFB, fungal and bacteria have been sent. This will be followed up by pulmonology. Patient may require further evaluation of the cavitary lesion. Patient may require further intervention like biopsy or bronchoscopy. This will be further addressed by pulmonology. 3. Patient with hyperlipidemia. At discharge she will continue with her medication-Lipitor 40 mg daily. 4. Patient with history of carotid arterial disease. At discharge she will continue with her medication-aspirin 81 mg daily and Plavix 75 mg daily. 5. Patient with hypertension. At discharge she will continue with Norvasc 10 mg daily. 6. Patient with history of chronic renal disease stage III. This has remained stable. Recommend to recheck BMP in 2-4 weeks to monitor her progress. Recommend no further use of nonsteroidal anti-inflammatories. Future medications will need to be renally dosed. Diet: AHA Activity: Ad tiffany Time spent managing pt's care (in minutes): 55
--- NOTE | 2019-01-19 11:55 | P.CNS ---
Date of Consult: 01/19/19 Primary Care Provider: Dr. Spain; Pulmonary-Dr. Black Chief Complaint: Shortness of breath abnormal CT scan History of Present Illness: Patient is 83 years of age with a history of atypical mycobacterium infection has been sick for a week complaining of cough congestion postnasal drainage ended up here in the hospital denies any fever chills or weight loss. No chest pain. She has an cavity in the right upper lobe which apparently has a large patient was treated for atypical mycobacterium infection Allergies No Known Allergies Allergy (Verified 09/24/17 12:53) Home Medications: Amlodipine [Norvasc*] 10 mg PO DAILY 01/18/19 Aspirin Chewable [Aspirin Chewable*] 81 mg PO DAILY 01/18/19 Atorvastatin Calcium [Lipitor] 40 mg PO BEDTIME 01/18/19 Clopidogrel Bisulfate [Plavix*] 75 mg PO DAILY 01/18/19 Ipratropium/Albuterol Sulfate [Combivent Respimat 20-100 Mcg] 1 puff IN TID PRN 01/18/19 Arformoterol Tartrate [Brovana] 15 mcg NEB BIDRESP #60 vial.neb 01/19/19 predniSONE [Prednisone*] 20 mg PO SEECOM #15 tab 01/19/19 - Past Medical/Surgical History Diabetic: No -: COPD -: Hypertension -: Hyperlipidemia -: CAD -: History of mycobacterium infection, treated -: Former tobacco use -: Arterial bypass of the left carotid artery -: Tubal ligation Psychosocial/ Personal History: Patient is a . She lives by herself. - Family History Mother Medical History: Cancer - Social History Smoking Status: Current every day smoker Alcohol use: No CD- Drugs: No Caffeine use: Yes Place of Residence: Home Review of Systems 10-point ROS is otherwise unremarkable Respiratory: Cough, Shortness of Breath Cardiovascular: Edema Physical Examination Temp Pulse Resp BP Pulse Ox 97.6 F 89 18 152/65 H 93 01/19/19 08:08 01/19/19 08:37 01/19/19 08:08 01/19/19 08:37 01/19/19 08:08 General: Alert, In no apparent distress, Oriented x3 Neck: Supple Respiratory: Clear to auscultation bilaterally, Expiratory wheezes Cardiovascular: No edema, Regular rate/rhythm, Normal S1 S2 - Problems (1) COPD exacerbation Current Visit: Yes Status: Acute Plan: Patient is 83 years of age admitted with COPD exacerbation evidence of active sepsis pro calcitonin level is negative patchy changes on the CT scan the of our have enlarged right upper lobe cavity with thickening of the cruz sputum cultures are been ordered is no obvious mass on the CT scan he elevate for home oxygen discharged home without antibiotics low-dose prednisone 10 mg twice a day for 10 days blood cultures negative AFBs are pending cavity noted in September will discuss with the patient as an outpatient pending on the cultures patient has bronchodilators
[2019-01-19 12:45] VITALS: BP 111/56; TEMP 98.4
[2019-01-20] MEDS ORDERED: ENOXAPARIN 30 MG/0.3 ML SQ SCH (09:00)
== END 2019-01-19 16:08 | disposition home health service (06) ==
LOC: ER 09:45 → INTOOBSV 12:03 → ERHOLD 12:03 → 2ND 13:44
PROVIDERS: ADMIT Family Medicine; ATTEND Family Medicine
DX: J96.21 Acute and chronic respiratory failure with hypoxia (principal); J18.9 Pneumonia, unspecified organism; J44.0 Chronic obstructive pulmonary disease with (acute) lower respiratory infection; J44.1 Chronic obstructive pulmonary disease with (acute) exacerbation; I12.9 Hypertensive chronic kidney disease with stage 1 through stage 4 chronic kidney disease, or unspecified chronic kidney disease; N18.3 Chronic kidney disease, stage 3 (moderate); E78.5 Hyperlipidemia, unspecified; I25.10 Atherosclerotic heart disease of native coronary artery without angina pectoris; I25.2 Old myocardial infarction; Z87.891 Personal history of nicotine dependence
CPT/HCPCS: 96365; 96368; 93005; 93306; 87040 ×2; 87088; 85025 ×2; 80048 ×2; 36415; 83735; 87205; 84484; 87015; 87206; 84145; 83880; 87116; 87804 ×2; 71260; 71045; 71046; 96375; 99285; Q9967; J0456; J1650; J3475; J0696 ×3; J7030; J2930; G0378 ×3; 81003; 81015; 87086; J7512

== ENCOUNTER 2022-04-06 10:31 | Emergency (ER) | payer OTHER ==
[2022-04-06 11:21] LABS: Absolute Lymphocytes (CBC) 1.3 K/uL (0.7-4.9); Hematocrit 37.5 % (36.0-45.0); Lymphocytes % 17.4 % (15.3-44.8); MCV 90.5 fL (80-100); MPV 8.9 fL (7.6-11.3); RBC Red Blood Cell Count 4.14 M/uL (3.86-4.86)
[2022-04-06 11:27] LABS: Protime INR 1.1
[2022-04-06] MEDS ORDERED: LEVALBUTEROL 1.25 MG/3 ML NEB ONE (11:29)
[2022-04-06] MEDS ORDERED: METHYLPREDNISOLONE 125 MG INJ ONE (11:29)
--- NOTE | 2022-04-06 11:42 | RAD REPORT ---
EXAM DESCRIPTION: RAD - Chest Single View - 04/06/2022 11:28 am CLINICAL HISTORY: Cough Chest pain. COMPARISON: Chest Pa And Lat (2 Views) dated 04/12/2020; Chest Pa And Lat (2 Views) dated 05/27/2019; Chest Pa And Lat (2 Views) dated 02/21/2019; Chest Pa And Lat (2 Views) dated 01/19/2019 FINDINGS: Portable technique limits examination quality. Bilateral pulmonary opacities are noticed, greatest in the right lung base as well as the right upper lobe probably representing infiltrate/pneumonia. Irregular cavitary lesion in the right apex appear stable since prior studies. The heart is mildly enlarged. Aortic atherosclerosis.
[2022-04-06 12:01] LABS: SARS-COV-2 RT PCR NEGATIVE (NEGATIVE)
[2022-04-06 12:03] LABS: Albumin 2.6 g/dL (3.4-5.0); Bilirubin Total 0.7 mg/dL (0.2-1.0); Potassium 3.4 mmol/L (3.5-5.1); Protein, Total 6.4 g/dL (6.4-8.2); Thyroid Stimulating Hormone 2.03 uIU/mL (0.358-3.740)
--- NOTE | 2022-04-06 12:05 | ER ---
Nurse's Notes [facility] Name: Su Clayton Age: 87 yrs Sex: Female : 1935 Arrival Date: 04/06/2022 Time: 10:32 Bed External Waiting [facility] MD: Diagnosis: Pneumonia, unspecified organism;COPD/ Chronic obstructive pulmonary disease with acute lower respiratory infection;COPD/ Chronic obstructive pulmonary disease with (acute) exacerbation;Hypoxemia Presentation: 04/06 10:45 Chief complaint: SOB x 2 days. Coronavirus screen: Client presents with at least one hb sign or symptom that may indicate coronavirus-19. Standard/surgical mask placed on the client. Provider contacted for isolation considerations. Ebola Screen: No symptoms or risks identified at this time. Initial Sepsis Screen: Does the patient meet any 2 criteria? No. Patient's initial sepsis screen is negative. Does the patient have a suspected source of infection? No. Patient's initial sepsis screen is negative. Risk Assessment: Do you want to hurt yourself or someone else? Patient reports no desire to harm self or others. Onset of symptoms was April 05, 2022. 10:45 Method Of Arrival: Wheelchair hb 10:45 Acuity: MARLINE 2 hb Triage Assessment: 10:46 General: Appears distressed, Behavior is cooperative, anxious. Pain: Denies pain. hb Neuro: Level of Consciousness is awake, alert, obeys commands, Oriented to person, place, time, situation. Cardiovascular: Patient's skin is warm and dry. Respiratory: Respiratory effort is labored, Respiratory pattern is tachypnea. Historical: - Allergies: 10:46 No Known Allergies; hb - PMHx: 10:46 COPD; Hyperlipidemia; Hypertension; niidm; hb - Immunization history:: Client reports receiving the 2nd dose of the Covid vaccine. - Family history:: not pertinent. - Social history:: Smoking status: unknown. - Hospitalizations: : No recent hospitalization is reported. Screenin:00 [facility] ED Fall Risk Assessment (Adult) History of falling in the last 3 months, jl7 including since admission No falls in past 3 months (0 pts) Confusion or Disorientation No (0 pts) Intoxicated or Sedated No (0 pts) Impaired Gait No (0 pts) Mobility Assist Device Used No (0 pt) Altered Elimination No (0 pt) Score/Fall Risk Level 0 - 2 = Low Risk Oriented to surroundings, Maintained a safe environment, Educated pt \T\ family on fall prevention, incl call for assistance when getting out of bed, Assessed \T\ reinforced patient's understanding of fall precautions. Abuse screen: Denies threats or abuse. Denies injuries from another. Nutritional screening: No deficits noted. Tuberculosis screening: No symptoms or risk factors identified. Assessment: 11:00 General: Appears distressed, uncomfortable, Behavior is cooperative, appropriate for jl7 age, anxious. Pain: Denies pain. Neuro: Level of Consciousness is awake, alert, obeys commands, Oriented to person, place, time, situation. Cardiovascular: Patient's skin is warm and dry. Rhythm is sinus rhythm. Respiratory: Airway is patent Respiratory effort is even, labored, Respiratory pattern is symmetrical, tachypnea Breath sounds are coarse bilaterally. Derm: Skin is pink, warm \T\ dry. 11:40 Reassessment: Dr. Pinto at bedside discussing results and POC. jl7 12:00 Reassessment: Report received from SUPRIYA Martinez. mb9 12:45 General: Appears in no apparent distress. comfortable, Behavior is calm, cooperative, mb9 appropriate for age. Pain: Denies pain. Neuro: Level of Consciousness is awake, alert, obeys commands, Oriented to person, place, time, situation. Cardiovascular: Heart tones S1 S2 present Rhythm is sinus rhythm. Respiratory: Airway is patent Respiratory effort is even, unlabored, Respiratory pattern is symmetrical, tachypnea Breath sounds are coarse bilaterally. GI: Abdomen is flat, non-distended. : No signs and/or symptoms were reported regarding the genitourinary system. EENT: No signs and/or symptoms were reported regarding the EENT system. Derm: Skin is pink, warm \T\ dry. Musculoskeletal: Range of motion: intact in all extremities. 13:18 Reassessment: Dr. Pinto at bedside speaking to pt and family. mb9 13:45 Reassessment: Pt and son updated on transfer plan and wait time. mb9 14:00 Reassessment: No changes from previously documented assessment. Neuro: Level of mb9 Consciousness is awake, alert, obeys commands, Oriented to person, place, time, situation. Cardiovascular: Rhythm is sinus rhythm. Respiratory: Airway is patent Respiratory effort is even, unlabored, Respiratory pattern is symmetrical, tachypnea. Derm: Skin is pink, warm \T\ dry. 15:08 Pain: Denies pain. Neuro: Level of Consciousness is awake, alert, obeys commands. mb9 Cardiovascular: Rhythm is sinus rhythm. Respiratory: Airway is patent Respiratory effort is even, unlabored, Respiratory pattern is regular, symmetrical. Derm: Skin is pink, warm \T\ dry. 15:30 Reassessment: Pt and son updated on transfer plan and wait time. mb9 16:08 Reassessment: Patient appears in no apparent distress at this time. No changes from kc6 previously documented assessment. Patient and/or family updated on plan of care and expected duration. Pain level reassessed. Patient is alert, oriented x 3, equal unlabored respirations, skin warm/dry/pink. 17:08 Reassessment: Patient appears in no apparent distress at this time. No changes from kc6 previously documented assessment. Patient and/or family updated on plan of care and expected duration. Pain level reassessed. Patient is alert, oriented x 3, equal unlabored respirations, skin warm/dry/pink. 17:41 Reassessment: Pt and son updated on transfer plan and wait time. mb9 18:52 Reassessment: No changes from previously documented assessment. Patient and/or family mb9 updated on plan of care and expected duration. Pain level reassessed. Patient is alert, oriented x 3, equal unlabored respirations, skin warm/dry/pink. 19:19 General: Appears in no apparent distress. General: Behavior is calm, cooperative. as6 20:20 Reassessment: No changes from previously documented assessment. Patient and/or family mb9 updated on plan of care and expected duration. Pain level reassessed. Patient is alert, oriented x 3, equal unlabored respirations, skin warm/dry/pink. Cardiovascular: Rhythm is sinus rhythm. 22:00 Reassessment: No changes from previously documented assessment. Patient and/or family mb9 updated on plan of care and expected duration. Pain level reassessed. Patient is alert, oriented x 3, equal unlabored respirations, skin warm/dry/pink. Cardiovascular: Rhythm is sinus rhythm. Respiratory: Airway is patent Respiratory effort is even, unlabored, Respiratory pattern is regular, symmetrical. 23:00 Reassessment: No changes from previously documented assessment. Patient and/or family mb9 updated on plan of care and expected duration. Pain level reassessed. Patient is alert, oriented x 3, equal unlabored respirations, skin warm/dry/pink. Cardiovascular: Rhythm is sinus rhythm. Respiratory: Airway is patent. 04/07 07:13 Reassessment: Patient appears in no apparent distress at this time. Patient and/or db family updated on plan of care and expected duration. Pain level reassessed. Patient is alert, oriented x 3, equal unlabored respirations, skin warm/dry/pink. 07:40 Reassessment: PATIENT PROVIDED CUP OF ICE WATER. db 09:00 Reassessment: PATIENT EATING BREAKFAST. db 10:59 Reassessment: Patient appears in no apparent distress at this time. No changes from db previously documented assessment. Patient and/or family updated on plan of care and expected duration. Pain level reassessed. Patient is alert, oriented x 3, equal unlabored respirations, skin warm/dry/pink. 14:19 Reassessment: Patient appears in no apparent distress at this time. CALLED AND LEFT A db MESSAGE FOR PATIENT SON MANJINDER TO INFORM OF TRANSFER APPROVAL. MANJINDER [phone]. 14:40 Reassessment: Patient appears in no apparent distress at this time. Patient is alert, db oriented x 3, equal unlabored respirations, skin warm/dry/pink. EMS IS HERE FOR PATIENT. PATIENT SENT WITH EMS AND BELONGINGS. Vital Signs: 04/06 10:45 BP 155 / 61; Pulse 86; Resp 36; Temp 97.7(TE); Pulse Ox 85% on R/A; Weight 61.69 kg; hb Height 5 ft. 2 in. (157.48 cm); Pain 0/10; 11:30 BP 131 / 52; Pulse 76; Resp 15; Pulse Ox 98% ; jl7 12:12 BP 143 / 60; Pulse 94; Resp 25; Pulse Ox 94% 4 lpm ; jl7 12:47 BP 140 / 54; Pulse 92; Resp 25; Pulse Ox 94% on R/A; Pain 0/10; mb9 14:13 BP 123 / 54; Pulse 84; Resp 24; Pulse Ox 100% on R/A; mb9 15:09 BP 129 / 59; Pulse 84; Resp 20; Pulse Ox 99% on 2 lpm NC; Pain 0/10; mb9 17:09 BP 139 / 65; Pulse 80; Resp 25 S; Pulse Ox 98% on 4 lpm NC; kc6 18:52 BP 128 / 53; Pulse 75; Resp 20; Pulse Ox 99% on 2 lpm NC; Pain 0/10; mb9 19:19 BP 104 / 76; Pulse 72; Resp 23 S; Pulse Ox 98% on R/A; as6 21:52 BP 136 / 60; Pulse 71; Resp 22 S; Pulse Ox 97% on 2 lpm NC; as6 22:47 BP 135 / 62; Pulse 69; Resp 21 S; Pulse Ox 100% on 2 lpm NC; as6 23:58 BP 144 / 67; Pulse 70; Resp 20; Pulse Ox 99% on 2 lpm NC; mb9 04/07 03:02 BP 143 / 63; Pulse 75; Resp 20 S; Pulse Ox 99% on 2 lpm NC; as6 06:07 BP 137 / 59; Pulse 77; Resp 19 S; Temp 98.1(O); Pulse Ox 99% on 2 lpm NC; as6 07:00 BP 137 / 59; Pulse 78; Resp 18; Temp 98(O); Pulse Ox 100% on 2 lpm NC; Pain 2/10; db 08:00 BP 156 / 60; Pulse 81; Resp 18; Temp 98; Pulse Ox 98% on 2 lpm NC; db 10:00 BP 146 / 94; Pulse 72; Resp 16; Pulse Ox 98% on 2 lpm NC; db 12:00 BP 143 / 66; Pulse 80; Resp 18; Temp 98(O); Pulse Ox 95% on 2 lpm NC; db 14:00 BP 143 / 86; Pulse 77; Resp 18; Pulse Ox 97% on 2 lpm NC; db 14:30 BP 147 / 68; Pulse 78; Resp 18; Pulse Ox 97% on 2 lpm NC; db 04/06 10:45 Body Mass Index 24.88 (61.69 kg, 157.48 cm) hb ED Course: 04/06 10:32 Patient arrived in ED. am2 10:44 Valdez Pinto MD is Attending Physician. rn 10:45 Patient has correct armband on for positive identification. Client placed on continuous jl7 cardiac and pulse oximetry monitoring. NIBP monitoring applied. Warm blanket given. 10:46 Triage completed. hb 10:46 Arm band placed on. hb 11:03 No provider procedures requiring assistance completed. Inserted saline lock: 20 gauge jl7 in right antecubital area, using aseptic technique. Blood collected. 11:06 Initial lab(s) drawn, by me, sent to lab. First set of blood cultures drawn by me, EKG jl7 done, by ED staff, reviewed by Valdez Pinto MD COVID swab sent to lab. 11:14 Juan Newman RN is Primary Nurse. jl7 11:19 Second set of blood cultures drawn RIGHT AC. vg1 11:30 Chest Single View XRAY In Process Unspecified. EDMS 12:15 intiated a transfer with Vika from the [facility] at the request eb of the patient. 12:21 Report given to SUPRIYA Patrick. jl7 12:32 Primary Nurse role handed off by Juan Newman RN jl7 12:36 Lorin Riggs, SUPRIYA is Primary Nurse. mb9 21:52 Assisted to bedside commode. as6 23:21 Assisted to bedside commode. as6 04/07 10:01 initiated transfer to [facility], pt denied due to all [facility] system being on bd saturation. Per Andra Price. 10:08 initiated transfer to [facility]. bd 10:27 pt denied at [facility] due to [facility]. bd 10:31 initiated trasfer to [facility]. bd 11:00 pt accepted in transfer to [facility]. bd 11:12 pt accepted in transfer to [facility] by dr Fonseca,admin approval given by López Avila. 11:35 Called to give report. No answer. Will call another number. db 11:45 ATTEMPTED TO CALL REPORT TRANSFERRED TO ER. CALL DISCONNECTED. db 12:00 ATTEMPTING TO GIVE REPORT TO [facility] ER. ON HOLD ER NUMBER [phone]. db 13:40 Report given to Report given to SUPRIYA Preston at [facility] ER. db 14:48 Patient transferred, IV remains in place. db 15:18 Attending Physician role handed off by Valdez Pinto MD bd 15:18 Primary Nurse role handed off by Lorin Riggs, SUPRIYA bd 15:20 Lisandro Ram MD is Attending Physician. hang Administered Medications: 04/06 11:38 Drug: SOLU-Medrol (methylPrednisoLONE) 125 mg Route: IVP; Site: left antecubital; jl7 22:48 Follow up: Response: No adverse reaction as6 11:38 Drug: Xopenex (levalbuterol) (3) 1.25 mg Route: Inhalation; jl7 22:48 Follow up: Response: No adverse reaction as6 12:20 Drug: Rocephin (cefTRIAXone) 1 grams Route: IV; Rate: calculated rate; Site: left mb9 antecubital; 12:44 Follow up: Response: No adverse reaction mb9 22:48 Follow up: Response: No adverse reaction; IV Status: Completed infusion; IV Intake: as6 250ml 12:36 Drug: Zithromax (azithromycin) 500 mg Route: IVPB; Infused Over: 1 hrs; Site: left mb9 antecubital; 14:17 Follow up: Response: No adverse reaction; IV Status: Completed infusion mb9 Medication: 11:40 VIS not applicable for this client. jl7 Intake: 22:48 IV: 250ml; Total: 250ml. as6 Outcome: 12:05 ER care complete, transfer ordered by MD. awad 04/07 14:47 Transferred by ground EMS Transfer form completed. X-rays sent w/ patient. Note: db transferred to [facility] Condition: stable Instructed on the need for transfer. 14:49 Patient left the ED. db 15:20 Patient left the ED. ll1 15:24 Patient left the ED. bd Signatures: Dispatcher [employer] EDMS Darcy Trent Corey, MD MD cha Nieto, Roman, MD MD rn Baxter, Heather RN RN Juan Ruff RN RN jl7 Margoth Lozano amIsela Marks Victoria RN RN vg1 Evelyn Morse RN RN ll1 Naresh Espinoza RN RN as6 Shanta Pena RN RN madison6 Monica Garza RN RN db Breneman, Mary Beth RN RN mb9 Corrections: (The following items were deleted from the chart) 04/06 12:01 10:45 BP 155 / 61; Pulse 86bpm; Resp 36bpm; Pulse Ox 95% RA; Temp 97.7F Temporal; 61.69 hb kg; Height 5 ft. 2 in.; BMI: 24.8; Pain 0/10; hb 22:49 20:20 Reassessment: No changes from previously documented assessment. Patient and/or mb9 family updated on plan of care and expected duration. Pain level reassessed. Patient is alert, oriented x 3, equal unlabored respirations, skin warm/dry/pink. mb9 04/07 07:54 07:00 BP 137 / 59; Pulse 78bpm; Resp 18bpm; Pulse Ox 100% RA; db db 13:41 07:00 BP 137 / 59; Pulse 78bpm; Resp 18bpm; Pulse Ox 100% RA; Temp 98F Oral; Pain 2/10; db db 13:41 08:00 BP 156 / 60; Pulse 81bpm; Resp 18bpm; Pulse Ox 98% RA; Temp 98F; db db 13:41 10:00 BP 146 / 94; Pulse 72bpm; Resp 16bpm; Pulse Ox 98% RA; db db
--- NOTE | 2022-04-06 12:05 | EDPHYS ---
Physician Documentation [facility] Name: Su Clayton Age: 87 yrs Sex: Female : 1935 Arrival Date: 04/06/2022 Time: 10:32 Bed External Waiting Private MD: SELENA Physician Lisandro Ram HPI: 04/06 11:58 This 87 yrs old Female presents to ER via Wheelchair with complaints of Breathing rn Difficulty. 11:58 The patient has shortness of breath at rest, with light activity. Onset: The rn symptoms/episode began/occurred yesterday. Duration: The symptoms are continuous. The patient's shortness of breath is aggravated by coughing, exertion, light activity, is alleviated by application of supplemental oxygen. 11:59 Associated signs and symptoms: Pertinent positives: productive cough, Pertinent rn negatives: fever, hemoptysis. Severity of symptoms: At their worst the symptoms were moderate in the emergency department the symptoms are unchanged. The patient has experienced similar episodes in the past. The patient has not recently seen a physician. Historical: - Allergies: 10:46 No Known Allergies; hb - PMHx: 10:46 COPD; Hyperlipidemia; Hypertension; niidm; hb - Immunization history:: Client reports receiving the 2nd dose of the Covid vaccine. - Family history:: not pertinent. - Social history:: Smoking status: unknown. - Hospitalizations: : No recent hospitalization is reported. ROS: 11:59 Constitutional: Negative for fever, chills, and weight loss, Eyes: Negative for injury, rn pain, redness, and discharge, Cardiovascular: Negative for chest pain, palpitations, and edema, Respiratory: + cough and sob Abdomen/GI: Negative for abdominal pain, nausea, vomiting, diarrhea, and constipation, MS/Extremity: Negative for injury and deformity, Skin: Negative for injury, rash, and discoloration, Neuro: Negative for headache, numbness, tingling, and seizure. Exam: 11:59 Constitutional: This is a well developed, well nourished patient who is awake, alert, rn + moderate tachypnea Head/Face: Normocephalic, atraumatic. ENT: dry MM, no stridor Cardiovascular: Regular rate and rhythm . No pulse deficits. Respiratory: + moderate tachypnea, no retractions, coarse bilateral breath sounds Abdomen/GI: Soft, non-tender Skin: Warm, dry MS/ Extremity: Pulses equal, no cyanosis. Neuro: Awake and alert, GCS 15 12:07 ECG was reviewed by the Attending Physician. rn Vital Signs: 10:45 BP 155 / 61; Pulse 86; Resp 36; Temp 97.7(TE); Pulse Ox 85% on R/A; Weight 61.69 kg; hb Height 5 ft. 2 in. (157.48 cm); Pain 0/10; 11:30 BP 131 / 52; Pulse 76; Resp 15; Pulse Ox 98% ; jl7 12:12 BP 143 / 60; Pulse 94; Resp 25; Pulse Ox 94% 4 lpm ; jl7 12:47 BP 140 / 54; Pulse 92; Resp 25; Pulse Ox 94% on R/A; Pain 0/10; mb9 14:13 BP 123 / 54; Pulse 84; Resp 24; Pulse Ox 100% on R/A; mb9 15:09 BP 129 / 59; Pulse 84; Resp 20; Pulse Ox 99% on 2 lpm NC; Pain 0/10; mb9 17:09 BP 139 / 65; Pulse 80; Resp 25 S; Pulse Ox 98% on 4 lpm NC; kc6 18:52 BP 128 / 53; Pulse 75; Resp 20; Pulse Ox 99% on 2 lpm NC; Pain 0/10; mb9 19:19 BP 104 / 76; Pulse 72; Resp 23 S; Pulse Ox 98% on R/A; as6 21:52 BP 136 / 60; Pulse 71; Resp 22 S; Pulse Ox 97% on 2 lpm NC; as6 22:47 BP 135 / 62; Pulse 69; Resp 21 S; Pulse Ox 100% on 2 lpm NC; as6 23:58 BP 144 / 67; Pulse 70; Resp 20; Pulse Ox 99% on 2 lpm NC; mb9 01/09 03:02 BP 143 / 63; Pulse 75; Resp 20 S; Pulse Ox 99% on 2 lpm NC; as6 06:07 BP 137 / 59; Pulse 77; Resp 19 S; Temp 98.1(O); Pulse Ox 99% on 2 lpm NC; as6 07:00 BP 137 / 59; Pulse 78; Resp 18; Temp 98(O); Pulse Ox 100% on 2 lpm NC; Pain /; db 08:00 BP 156 / 60; Pulse 81; Resp 18; Temp 98; Pulse Ox 98% on 2 lpm NC; db 10:00 BP 146 / 94; Pulse 72; Resp 16; Pulse Ox 98% on 2 lpm NC; db 12:00 BP 143 / 66; Pulse 80; Resp 18; Temp 98(O); Pulse Ox 95% on 2 lpm NC; db 14:00 BP 143 / 86; Pulse 77; Resp 18; Pulse Ox 97% on 2 lpm NC; db 14:30 BP 147 / 68; Pulse 78; Resp 18; Pulse Ox 97% on 2 lpm NC; db 04/06 10:45 Body Mass Index 24.88 (61.69 kg, 157.48 cm) hb MDM: 04/06 10:44 Patient medically screened. rn 11:57 Test interpretation: by ED physician or midlevel provider: plain radiologic studies, rn Independent xray interpretation by me: CXR shows bilateral pulmonary opacities concerning for pneumonia.. 11:59 Differential diagnosis: Anemia Bronchitis Chronic Obstructive Pulmonary Disease rn Myocardial Infarction pneumonia, Pneumothorax pulmonary edema, reactive airway disease, Sepsis. Antibiotic administration: Rocephin and Zithromax given. Data reviewed: vital signs, nurses notes, lab test result(s), radiologic studies, plain films, and as a result, I will admit patient. Data interpreted: secured entrance monitor: rate is 86 beats/min, rhythm is normal sinus rhythm, regular, with no ectopy, Interpretation: normal rate, normal rhythm, Pulse oximetry: on room air is 85 %. Interpretation: hypoxia. Counseling: I had a detailed discussion with the patient and/or guardian regarding: the historical points, exam findings, and any diagnostic results supporting the discharge/admit diagnosis, lab results, radiology results, the need for further work-up and treatment in the hospital, the need to transfer to another facility, insurance not accepted here. Response to treatment: the patient's symptoms have mildly improved after treatment, and as a result, I will admit patient. Admission orders: after a detailed discussion of the patient's condition and case, the admit orders are written by me. ED course: Pt with bilateral pneumonia on CXR with moderate COPD exacerbation. Does not require intubation or Bipap at this time. Pt needs to be admitted, but notified that she has [employer] insurance, not accepted here, will attempt transfer for insurance reasons. Care of this patient altered due to insurance coverage in terms of SDOH.. 04/06 10:54 Order name: Blood Culture Adult (2) rn 04/06 10:54 Order name: CBC with Diff; Complete Time: 11:46 rn 04/06 12:06 Interpretation: Within normal limits. rn 04/06 10:54 Order name: CMP; Complete Time: 12:05 rn 04/06 12:05 Interpretation: Normal except: K 3.4; GLUC 120; CRE 1.03. rn 04/06 10:54 Order name: Lactate w/ 2H reflex if indic.; Complete Time: 11:46 rn 04/06 12:06 Interpretation: Within normal limits. rn 04/06 10:54 Order name: Protime (+inr); Complete Time: 11:46 rn 04/06 10:54 Order name: Ptt, Activated; Complete Time: 11:46 rn 04/06 10:54 Order name: Chest Single View XRAY; Complete Time: 11:46 rn 04/06 12:06 Interpretation: Abnormal. rn 04/06 10:54 Order name: COVID-19/FLU A+B; Complete Time: 12:05 rn 04/06 12:05 Interpretation: Within normal limits. rn 04/06 11:36 Order name: NT PRO-BNP; Complete Time: 12:05 EDMS 04/06 12:05 Interpretation: Abnormal. rn 04/06 11:36 Order name: Thyroid Stimulating Hormone; Complete Time: 12:05 EDMS 04/06 10:54 Order name: EKG; Complete Time: 10:54 rn 04/06 10:54 Order name: Accucheck; Complete Time: 11:38 rn 04/06 10:54 Order name: Cardiac monitoring; Complete Time: 11:15 rn 04/06 10:54 Order name: EKG - Nurse/Tech; Complete Time: 11:15 rn 04/06 10:54 Order name: IV Saline Lock - Large Bore; Complete Time: 11:15 rn 04/06 10:54 Order name: Labs collected and sent; Complete Time: 11:15 rn 04/06 10:54 Order name: O2 Per Protocol; Complete Time: 11:15 rn 04/06 10:54 Order name: O2 Sat Monitoring; Complete Time: 11:15 rn 04/06 10:54 Order name: Vital Signs; Complete Time: 11:15 rn 04/07 07:28 Order name: Diet Heart Healthy; Complete Time: 07:29 bd EC:07 Rate is 80 beats/min. Rhythm is regular. QRS [place] is Normal. VA interval is normal. QRS rn interval is normal. QT interval is normal. No Q waves. T waves are Normal. No ST changes noted. Clinical impression: Normal ECG. Interpreted by me. Reviewed by me. Administered Medications: 11:38 Drug: SOLU-Medrol (methylPrednisoLONE) 125 mg Route: IVP; Site: left antecubital; jl7 22:48 Follow up: Response: No adverse reaction as6 11:38 Drug: Xopenex (levalbuterol) (3) 1.25 mg Route: Inhalation; jl7 22:48 Follow up: Response: No adverse reaction as6 12:20 Drug: Rocephin (cefTRIAXone) 1 grams Route: IV; Rate: calculated rate; Site: left mb9 antecubital; 12:44 Follow up: Response: No adverse reaction mb9 22:48 Follow up: Response: No adverse reaction; IV Status: Completed infusion; IV Intake: as6 250ml 12:36 Drug: Zithromax (azithromycin) 500 mg Route: IVPB; Infused Over: 1 hrs; Site: left mb9 antecubital; 14:17 Follow up: Response: No adverse reaction; IV Status: Completed infusion mb9 Disposition: :59 Critical Care:. rn Disposition Summary: 04/06/22 12:05 Transfer Ordered Reason: Higher level of care rn Condition: Stable rn Problem: new rn Symptoms: have improved ostomy rn Location: Other Acute Care Facility(04/07/22 15:23) [facility] Accepting Physician: [facility]Datta [facility](04/07/22 15:24) Diagnosis - Pneumonia, unspecified organism rn - COPD/ Chronic obstructive pulmonary disease with acute lower respiratory infection rn - COPD/ Chronic obstructive pulmonary disease with (acute) exacerbation rn - Hypoxemia rn Forms: - Medication Reconciliation Form rn - SBAR form internal review and audit compliance time excluding procedures: 59 Critical care time: Bedside Care: 35 minutes. Total time: 35 minutes rn Signatures: Dispatcher [employer] EDDarcy Hall Corey, MD MD cha Nieto, Roman, MD MD rn Baxter, Heather, RN RN hb Juan Newman, RN RN jl7 Evelyn Morse RN RN ll1 Monica Garza RN RN Lorin Riggs, RN RN mb9 Naresh Espinoza RN as6 Corrections: (The following items were deleted from the chart) 04/07 14:49 04/06 12:05 Dr. ritesh doe 04/07 15:20 14:49 Dr. doe [facility] 15:23 04/06 12:05 [facility] ritesh [facility] 04/07 15:23 15:20 Dr. peña [facility] 15:24 15:23 , [facility]
[2022-04-06] MEDS ORDERED: CEFTRIAXONE 1000 MG/VIAL ONE (12:22)
[2022-04-06] MEDS ORDERED: AZITHROMYCIN 500 MG INJ IVPB ONE (12:22)
[2022-04-06] MEDS ORDERED: NA CHLORIDE 0.9% 250 ML ONE (12:22)
--- NOTE | 2022-04-07 16:29 | EKG ---
Test Date: 2022-04-06 Test Time: 10:53:01 Mechanical Engineering Technologist: CHYNA MEASUREMENT RESULTS: Intervals: Rate: 80 AR: 114 QRSD: 76 QT: 358 QTc: 412 Shoup: P: 63 AR: 114 QRS: 30 T: 45 INTERPRETIVE STATEMENTS: Sinus rhythm with premature supraventricular complexes Otherwise normal ECG Compared to ECG 01/18/2019 10:20:08 Atrial premature complex(es) now present Electronically Signed On 04-07-22 16:27:04 REMEDIAL TEACHER by Bonifacio Petersen
[2022-04-07 16:32] VITALS: TEMP 98
[2022-04-07 16:37] VITALS: O2SAT 97
[2022-04-07 16:38] VITALS: BP 147/68
== END 2022-04-07 15:24 ==
LOC: ER 10:31
DX: J18.9 Pneumonia, unspecified organism (principal); J44.0 Chronic obstructive pulmonary disease with (acute) lower respiratory infection; J44.1 Chronic obstructive pulmonary disease with (acute) exacerbation; R09.02 Hypoxemia; I10 Essential (primary) hypertension; Z20.822 Contact with and (suspected) exposure to COVID-19
CPT/HCPCS: 93005; 87040 ×2; 85025; 36415; 85610; 83605; 85730; 84443; 80053; 83880; 0240U; 71045; J7614; J0456; J7050; J2930; 96365; 96366; 96375; 99285

== ENCOUNTER 2022-07-12 12:28 | Inpatient (IN) | payer OTHER ==
--- NOTE | 2022-07-12 13:33 | RAD REPORT ---
EXAM DESCRIPTION: RAD - Chest Single View - 07/12/2022 1:26 pm CLINICAL HISTORY: weakness COMPARISON: Chest Single View dated 07/02/2022; Chest Single View dated 04/06/2022; Chest Pa And Lat (2 Views) dated 04/12/2020; Chest Pa And Lat (2 Views) dated 05/27/2019; Chest Abd Pelvis Wo Con dated 07/02 FINDINGS: Lines: None. Lungs: Similar cavitary changes in the right upper lung. Background emphysema. Scarring in the right lung base is unchanged. Pleural: No significant pleural effusions or pneumothorax. Cardiac: The heart size is within normal limits. Mediastinum: Within normal limits. Bones: No acute fractures. Other: Surgical clips at the base of the neck. IMPRESSION: No significant change compared with the CT from 07/02/2022. Cavitary changes at the righ t lung apex as well as other chronic changes are similar. No definite acute process.
[2022-07-12 14:23] LABS: Absolute Lymphocytes (CBC) 1.6 K/uL (0.7-4.9); Lymphocytes % 15.1 % (15.3-44.8); MCV 89.6 fL (80-100); MPV 9.1 fL (7.6-11.3)
[2022-07-12 14:26] LABS: Protime INR 1.11
[2022-07-12 14:36] LABS: Albumin 3.2 g/dL (3.4-5.0); Bilirubin Total 0.9 mg/dL (0.2-1.0); Potassium 3.1 mEq/L (3.5-5.1)
[2022-07-12] MEDS ORDERED: NS KCL 20 MEQ IV ONE (14:54)
--- NOTE | 2022-07-12 15:30 | RAD REPORT ---
EXAM DESCRIPTION: CTAbdomen Pelvis Wo Contrast - 07/12/2022 3:05 pm CLINICAL HISTORY: ABD PAIN COMPARISON: Chest Abd Pelvis Wo Con dated 07/02/2022 TECHNIQUE: CT of the abdomen and pelvis was performed. All CT scans are performed using dose optimization technique as appropriate and may include automated exposure control or mA/KV adjustment according to patient size. FINDINGS: Lower chest: Similar small areas of subpleural consolidation in the right lower lobe. Burak nary artery calcifications. Small hiatal hernia. Fluid in distal esophagus could reflect reflux. Calc ified right lower lobe nodule. Liver: No acute abnormality or suspicious lesions. Biliary: Cholelithiasis. Stomach: No significant focal abnormality. Duodenum: No significant focal abnormality. Pancreas: No significant abnormality. Spleen: No significant abnormality. Adrenal: No suspicious lesions. Kidney/ureter: No hydronephrosis. No renal calculi. Retroperitoneum: No retroperitoneal adenopathy. Vascular: No aneurysm. Bowel: Normal appendix. Diverticulosis without diverticulitis. Peritoneum: No ascites or free air. Bladder: Grossly unremarkable. Reproductive: No adnexal masses. Bones: No acute fracture. Multilevel degenerative changes are present in the spine. Other: n/a IMPRESSION: No acute intra-abdominal or pelvic finding. Normal appendix. No urinary tract calculi or bowel obstruction. Cholelithiasis without CT evidence acute cholecystitis.
--- NOTE | 2022-07-12 16:01 | EDPHYS ---
Physician Documentation [facility] Name: Su Clayton Age: 87 yrs Sex: Female : 1935 Arrival Date: 07/12/2022 Time: 12:28 Bed 18 Private MD: Harry Hamm ED Physician Lisandro Ram HPI: 07/12 14:53 This 87 yrs old Female presents to ER via Wheelchair with complaints of Low BP, snw Dizziness, Weakness, Shortness Of Breath. 14:53 weak, dizzy, short of breath, and noted to be hypotensive at home. Recently discharged snw from inpatient status here at [facility]. Onset: The symptoms/episode began/occurred acutely, and became persistent. Severity of symptoms: At their worst the symptoms were moderate in the emergency department the symptoms are unchanged. The patient has experienced similar episodes in the past. as noted. Historical: - Allergies: 12:36 No Known Allergies; iw - PMHx: 12:36 COPD; Hyperlipidemia; Hypertension; Lung mass; niidm; iw - PSHx: 12:36 Bipass; Carotid artery; iw - Immunization history:: Adult Immunizations up to date, Client reports receiving the 2nd dose of the Covid vaccine. - Social history:: Smoking status: Patient/guardian denies using tobacco. ROS: 14:50 Eyes: Negative for injury, pain, redness, and discharge, ENT: Negative for injury, snw pain, and discharge, Neck: Negative for injury, pain, and swelling, Cardiovascular: Negative for chest pain, palpitations, and edema, Respiratory: Negative for shortness of breath, cough, wheezing, and pleuritic chest pain. 14:50 Back: Negative for injury and pain, : Negative for injury, bleeding, discharge, and swelling, MS/Extremity: Negative for injury and deformity, Skin: Negative for injury, rash, and discoloration. 14:50 Constitutional: Positive for body aches, fatigue, malaise, hypotension. 14:50 Abdomen/GI: Positive for abdominal pain, nausea. 14:50 Neuro: Positive for weakness. Exam: 14:48 Head/Face: Normocephalic, atraumatic. Eyes: Pupils equal round and reactive to light, snw extra-ocular motions intact. Lids and lashes normal. Conjunctiva and sclera are non-icteric and not injected. Cornea within normal limits. Periorbital areas with no swelling, redness, or edema. 14:48 Neck: Trachea midline, no thyromegaly or masses palpated, and no cervical lymphadenopathy. Supple, full range of motion without nuchal rigidity, or vertebral point tenderness. No Meningismus. Chest/axilla: Normal chest wall appearance and motion. Nontender with no deformity. No lesions are appreciated. Cardiovascular: Regular rate and rhythm with a normal S1 and S2. No gallops, murmurs, or rubs. Normal PMI, no JVD. No pulse deficits. 14:48 Back: No spinal tenderness. No costovertebral tenderness. Full range of motion. 14:48 Neuro: Awake and alert, GCS 15, oriented to person, place, time, and situation. Cranial nerves II-XII grossly intact. Motor strength 5/5 in all extremities. Sensory grossly intact. Cerebellar exam normal. Normal gait. Psych: Awake, alert, with orientation to person, place and time. Behavior, mood, and affect are within normal limits. 14:48 Constitutional: The patient appears alert, awake, frail, listless, pale. 14:48 ENT: Mouth: Lips: cracked, Oral mucosa: dry, Posterior pharynx: no acute changes, Voice: is normal. 14:48 Respiratory: mild respiratory distress is noted, Respirations: shallow respirations, tachypnea, that is moderate, on O2. 14:48 Abdomen/GI: Inspection: abdomen appears normal, Bowel sounds: diminished, Palpation: mild abdominal tenderness, moderate abdominal tenderness, in the left lower quadrant. 14:48 Skin: Appearance: Color: pale, Temperature: warm, Moisture: dry, ecchymosis, that are moderate, and are scattered. Vital Signs: 12:33 BP 135 / 55; Pulse 63; Resp 22 S; Temp 97.2; Pulse Ox 90% on 2 lpm NC; Weight 53.07 kg; iw Height 5 ft. 4 in. ; Pain 10/10; 13:23 BP 150 / 44; Pulse 62; Resp 21; Pulse Ox 100% on 2 lpm NC; ld1 14:39 BP 136 / 51; Pulse 61; Resp 18; Pulse Ox 99% on 2 lpm NC; ld1 16:25 BP 146 / 47; Pulse 67; Resp 18; Pulse Ox 100% on 2 lpm NC; ld1 17:30 BP 118 / 70; Pulse 68; Resp 23; Pulse Ox 95% on 2 lpm NC; ld1 18:30 BP 145 / 66; Pulse 67; Resp 17; Pulse Ox 97% on 2 lpm NC; ld1 20:00 BP 119 / 92; Pulse 69; Resp 19; Pulse Ox 100% on R/A; Pain 6/10; ll3 12:33 Body Mass Index 20.08 (53.07 kg, 162.56 cm) iw 12:33 Pain Scale: Adult iw 20:00 Pain Scale: Adult ll3 MDM: 12:59 Patient medically screened. hang 14:48 ED course: CT abd without contrast as GFR 22, creatinine 2.1. snw 15:56 Differential Diagnosis hypotension, electrolyte imbalance, debility, sepsis. Data snw reviewed: vital signs, nurses notes, old medical records, +sputum cx with pseudomonas, mycobacterium, and pat lab test result(s), EKG. Management of patient was discussed with the following: Hospitalist: Dr. Summers, he will discuss with Dr. Hamm and then see the patient in ED 18. Historians other than the Patient: Daughter/Son: Daughter. Care significantly affected by the following chronic conditions: Hypertension, Chronic Obstructive Pulmonary Disease, Chronic Kidney Disease. Care significantly affected by the following Social Determinants of Health: Lives alone with Daughter checking in . Response to treatment: the patient's symptoms have mildly improved after treatment. 07/12 13:00 Order name: Blood Culture Adult (2) [facility] 07/12 13:00 Order name: CBC with Diff; Complete Time: 14:26 snw 07/12 13:00 Order name: CMP; Complete Time: 14:36 snw 07/12 13:00 Order name: Lactate w/ 2H reflex if indic.; Complete Time: 14:27 snw 07/12 13:00 Order name: Protime (+inr); Complete Time: 14:27 snw 07/12 13:00 Order name: Ptt, Activated; Complete Time: 14:27 snw 07/12 13:13 Order name: TS; Complete Time: 15:55 snw 07/12 13:13 Order name: TSH; Complete Time: 15:14 snw 07/12 13:52 Order name: Glucose, Ancillary Testing; Complete Time: 13:58 EDMS 04/15 20:24 Order name: ABO/RH no charge; Complete Time: 20:31 EDVT 07/12 20:46 Order name: Blood Culture [facility] 07/12 13:00 Order name: Chest Single View XRAY; Complete Time: 13:58 snw 07/12 14:50 Order name: Abdomen ; Complete Time: 15:32 [facility] 07/12 13:00 Order name: EKG; Complete Time: 13:01 snw 07/12 18:20 Order name: Physical Therapy Consult [facility] 07/12 18:20 Order name: Social Service Consult [facility] 07/12 13:00 Order name: Accucheck; Complete Time: 13:40 snw 07/12 13:00 Order name: Cardiac monitoring; Complete Time: 13:23 snw 07/12 13:00 Order name: EKG - Nurse/Tech; Complete Time: 13:23 snw 07/12 13:00 Order name: IV Saline Lock - Large Bore; Complete Time: 13:40 snw 07/12 13:00 Order name: Labs collected and sent; Complete Time: 13:40 snw 07/12 13:00 Order name: O2 Per Protocol; Complete Time: 13:11 snw 07/12 13:00 Order name: O2 Sat Monitoring; Complete Time: 13:11 snw 07/12 13:00 Order name: Vital Signs; Complete Time: 13:23 snw EC:20 Rate is 56 beats/min. Rhythm is irregular. QRS [place] is Normal. [place] interval is normal. snw QRS interval is normal. Clinical impression: NSR w/ Non-specific ST/T Changes and Sinus bradycardia. Administered Medications: 15:29 Drug: NS 0.9% with KCl IV 20 mEq/L 500 ml Route: IV; Rate: 200 ml/hr; Site: right ld1 antecubital; 16:24 Drug: NS 0.9% with KCl IV 20 mEq/L 1000 ml Route: IV; Rate: 125 ml/hr; Site: right ld1 antecubital; Disposition Summary: 07/12/22 16:01 Hospitalization Ordered Hospitalization Status: Inpatient Admission snw Provider: Ricardo Summers Location: Telemetry/MedSurg (Inpatient) snw Condition: Stable snw Problem: an acute exacerbation snw Symptoms: have worsened snw Bed/Room Type: Standard snw Room Assignment: 203(07/12/22 20:11) cg Diagnosis - Weakness snw - Hypokalemia snw - Hypertensive heart and chronic kidney disease without heart failure, with stage 1 snw through stage 4 chronic kidney disease, or unspecified chronic kidney disease - Mycobacterium, pseudomonal, and candidal lung infection of long duration snw Forms: - Medication Reconciliation Form snw - SBAR form snw Addendum: 07/16/2022 13:51 Co-signature as Attending Physician, Lisandro Ram MD I agree with the assessment and c woody plan of care. 13:51 Co-signature as Attending Physician, Harry Hamm DO I agree with the assessment and c woody plan of care. Signatures: Dispatcher [employer] EDMS Lisandro Ram MD MD cha Waters, Shelly, GAS ANALYST-C GAS ANALYST-Csnw Bel Marquis, RN SUPRIYA iw Rani Villalobos RN RN cg Cheryl Alexandra RN RN ld1 Corrections: (The following items were deleted from the chart) 07/12 14:50 13:14 Abdomen Pelvis W Con+CT.RAD.BRZ ordered. EDMS EDMS 18:20 13:01 Urinalysis+U.LAB.BRZ ordered. EDMS EDMS 20:11 16:01 snw cg
--- NOTE | 2022-07-12 16:01 | ER ---
Nurse's Notes [facility] Name: Su Clayton Age: 87 yrs Sex: Female : 1935 Arrival Date: 07/12/2022 Time: 12:28 Bed 18 Private MD: Harry Hamm Diagnosis: Weakness;Hypokalemia;Hypertensive heart and chronic kidney disease without heart failure, with stage 1 through stage 4 chronic kidney disease, or unspecified chronic kidney disease;Mycobacterium, pseudomonal, and candidal lung infection of long duration Presentation: 07/12 12:33 Chief complaint: Patient's son or daughter states: low BP at home , 97/50, has been iw feeling weak and not eating since she was here last Thursday , +vomiting , reports pain all over, no fever. Coronavirus screen: Client presents with at least one sign or symptom that may indicate coronavirus-19. Ebola Screen: Patient negative for fever greater than or equal to 101.5 degrees Fahrenheit, and additional compatible Ebola Virus Disease symptoms Patient denies exposure to infectious person. Patient denies travel to an Ebola-affected area in the 21 days before illness onset. No symptoms or risks identified at this time. 12:33 Method Of Arrival: Wheelchair iw 12:35 Initial Sepsis Screen: Does the patient meet any 2 criteria? No. Patient's initial iw sepsis screen is negative. Does the patient have a suspected source of infection? No. Patient's initial sepsis screen is negative. Risk Assessment: Do you want to hurt yourself or someone else? Patient reports no desire to harm self or others. Onset of symptoms was July 12, 2022. 12:35 Acuity: MARLINE 3 iw Historical: - Allergies: 12:36 No Known Allergies; iw - PMHx: 12:36 COPD; Hyperlipidemia; Hypertension; Lung mass; niidm; iw - PSHx: 12:36 Bipass; Carotid artery; iw - Immunization history:: Adult Immunizations up to date, Client reports receiving the 2nd dose of the Covid vaccine. - Social history:: Smoking status: Patient/guardian denies using tobacco. Screenin:23 [facility] ED Fall Risk Assessment (Adult) History of falling in the last 3 months, ld1 including since admission No falls in past 3 months (0 pts). Abuse screen: Denies threats or abuse. Denies injuries from another. Nutritional screening: No deficits noted. Tuberculosis screening: No symptoms or risk factors identified. Assessment: 13:23 General: Appears in no apparent distress. comfortable, Behavior is calm, cooperative, ld1 appropriate for age. Pain: Denies pain. Neuro: Level of Consciousness is awake, alert, obeys commands, Oriented to person, place, time, situation, Reports dizziness. Cardiovascular: Capillary refill < 3 seconds Patient's skin is warm and dry. Rhythm is sinus rhythm. Respiratory: Airway is patent Respiratory effort is even, unlabored. GI: Abdomen is flat, non-distended. : No signs and/or symptoms were reported regarding the genitourinary system. EENT: No signs and/or symptoms were reported regarding the EENT system. Derm: No signs and/or symptoms reported regarding the dermatologic system. Musculoskeletal: No signs and/or symptoms reported regarding the musculoskeletal system. 15:00 Reassessment: Patient appears in no apparent distress at this time. No changes from ld1 previously documented assessment. Patient and/or family updated on plan of care and expected duration. Pain level reassessed. Purewick in place - cleaned of incontinence. 16:15 Reassessment: Patient appears in no apparent distress at this time. No changes from ld1 previously documented assessment. Patient and/or family updated on plan of care and expected duration. Pain level reassessed. Patient is alert, oriented x 3, equal unlabored respirations, skin warm/dry/pink. 17:45 Reassessment: Patient appears in no apparent distress at this time. No changes from ld1 previously documented assessment. Patient and/or family updated on plan of care and expected duration. Pain level reassessed. Patient is alert, oriented x 3, equal unlabored respirations, skin warm/dry/pink. 18:59 Reassessment: Patient appears in no apparent distress at this time. No changes from ld1 previously documented assessment. Patient and/or family updated on plan of care and expected duration. Pain level reassessed. Patient is alert, oriented x 3, equal unlabored respirations, skin warm/dry/pink. Vital Signs: 12:33 BP 135 / 55; Pulse 63; Resp 22 S; Temp 97.2; Pulse Ox 90% on 2 lpm NC; Weight 53.07 kg; iw Height 5 ft. 4 in. ; Pain 10/10; 13:23 BP 150 / 44; Pulse 62; Resp 21; Pulse Ox 100% on 2 lpm NC; ld1 14:39 BP 136 / 51; Pulse 61; Resp 18; Pulse Ox 99% on 2 lpm NC; ld1 16:25 BP 146 / 47; Pulse 67; Resp 18; Pulse Ox 100% on 2 lpm NC; ld1 17:30 BP 118 / 70; Pulse 68; Resp 23; Pulse Ox 95% on 2 lpm NC; ld1 18:30 BP 145 / 66; Pulse 67; Resp 17; Pulse Ox 97% on 2 lpm NC; ld1 20:00 BP 119 / 92; Pulse 69; Resp 19; Pulse Ox 100% on R/A; Pain 6/10; ll3 12:33 Body Mass Index 20.08 (53.07 kg, 162.56 cm) iw 12:33 Pain Scale: Adult iw 20:00 Pain Scale: Adult ll3 ED Course: 12:29 Patient arrived in ED. mr 12:30 Harry Hamm DO is Private Physician. mr 12:36 Triage completed. iw 12:36 Arm band placed on. iw 12:58 Cheryl Alexandra, RN is Primary Nurse. ld1 12:58 [facility] Clancy [facility]-C [facility] snw 12:58 Lisandro Ram MD is Attending Physician. snw 13:23 Patient has correct armband on for positive identification. Placed in gown. Bed in low ld1 position. Call light in reach. Side rails up X2. manager monitoring on. Pulse ox on. NIBP on. Door closed. Noise minimized. Warm blanket given. 13:23 No provider procedures requiring assistance completed. ld1 13:28 Chest Single View XRAY In Process Unspecified. EDMS 13:28 Initial lab(s) drawn, by me, sent to lab. First set of blood cultures drawn by me, EKG mm9 done, by ED staff, reviewed by Mayte STEINBERG T\T\S collected, blood band applied to patient. 13:42 TSH Sent. mm9 13:42 Blood Culture Adult (2) Sent. mm9 13:42 CBC with Diff Sent. mm9 13:42 CMP Sent. mm9 13:42 Lactate w/ 2H reflex if indic. Sent. mm9 13:42 Protime (+inr) Sent. mm9 13:42 Ptt, Activated Sent. mm9 13:42 Inserted saline lock: 20 gauge in right antecubital area, using aseptic technique. mm9 Blood collected. 15:07 Abdomen In Process Unspecified. EDMS 15:59 Ricardo Summers MD is Hospitalizing Provider. snw 20:48 Patient admitted, IV remains in place. ll3 Administered Medications: 15:29 Drug: NS 0.9% with KCl IV 20 mEq/L 500 ml Route: IV; Rate: 200 ml/hr; Site: right ld1 antecubital; 16:24 Drug: NS 0.9% with KCl IV 20 mEq/L 1000 ml Route: IV; Rate: 125 ml/hr; Site: right ld1 antecubital; Medication: 20:49 VIS not applicable for this client. ll3 Outcome: 16:01 Decision to Hospitalize by Provider. snw 20:48 Admitted to Med/surg accompanied by tech, via stretcher, room 203, with oxygen, with 3 chart, Report called to SUPRIYA Irwin 20:48 Condition: stable 20:48 Instructed on the need for admit, Demonstrated understanding of instructions. 21:06 Patient left the ED. ll3 Signatures: Dispatcher [employer] EDTN Mayte Clancy, WRAPPER REWINDERKavon WRAPPER REWINDER-Lorin Brown Bel Marquis, RN Cheryl Ortega RN RN ld1 Chiquita Warren RN RN ll3 Carol Ann Gayle mmMarva Corrections: (The following items were deleted from the chart) 13:24 13:23 VIS not applicable for this client. ld1 ld1
--- NOTE | 2022-07-12 18:37 | P.HP ---
Certification for Inpatient Patient admitted to: Inpatient With expected LOS: >2 Midnights Practitioner: I am a practitioner with admitting privileges, knowledge of patient current condition, hospital course, and medical plan of care. Services: Services provided to patient in accordance with Admission requirements found in Title 42 Section 412.3 of the Code of Federal Regulations Patient History Date of Service: 07/12/22 Reason for admission: WEAKNESS, NOT EATING, FALLING. History of Present Illness: JASON JOHNS HAS HAD MYCOMACTERIUM AVIUM COMPLEX INFECTION PER GRANDSON AND MATERIALS DEVELOPMENT ENGINEER SHE WAS DIAGNOSED IN [place] AFTER SHE WAS SENT FROM HERE. DR. DANIEL HAS TAKEN CARE OF HER FOR A YEAR AND HE IS AWARE THAT SHE HAS THIS FOR A YEAR. SHE ALSO GOES TO DR. GIOVANI Ponce PRIMARY DOCTOR WHO IS OB TECH. FAMILY THINKS THAT DR. DANIEL IS NOT DOING MUCH FOR HER BUT I EXPLAINED THAT THE JONO OR MAC INFECTIONS HAVE NO CURE AND IS THE REASON SHE IS DEBILTIATED AND WEAK. SHE COMES BACK SHE IS GETTING WEAKER. I TALKED TO STALLION MANAGER WHO HAS ALL THE HISTORY AND THE GRANDSON WHO CALLED FROM ER. I SAW HER IN ER ABOUT AN HOUR AGO. Allergies No Known Allergies Allergy (Verified 09/24/17 12:53) Home medications list reviewed: Yes Home Medications: Aspirin Chewable [Aspirin Chewable*] 81 mg PO DAILY 01/18/19 Atorvastatin Calcium [Lipitor] 40 mg PO BEDTIME 01/18/19 Clopidogrel Bisulfate [Plavix*] 75 mg PO DAILY 01/18/19 Ipratropium/Albuterol Sulfate [Combivent Respimat 20-100 Mcg] 1 puff IN TID PRN 01/18/19 Ascorbic Acid [C-1000] 500 mg PO DAILY 07/04/22 Calcium Carbonate 600 mg PO DAILY 07/04/22 Cyanocobalamin (Vitamin B-12) [Vitamin B-12] 500 mcg PO DAILY 07/04/22 Furosemide 20 mg PO DAILY 07/04/22 Methylsulfonylmethane [MSM] 1,000 mg PO DAILY 07/04/22 Nitrofurantoin Monohyd/M-Cryst [Macrobid 100 mg Capsule] 100 mg PO BID 07/04/22 Promethazine HCl 6.25 mg PO TID PRN 07/04/22 glucosamine HCL [Glucosamine HCl] 1,000 mg PO DAILY 07/04/22 Albuterol Neb [Proventil 0.083% Neb Soln] 2.5 mg NEB [id number] PRN #60 amp 07/07/22 Fluconazole [Diflucan] 100 mg PO DAILY #7 tab 07/07/22 Losartan Potassium [Cozaar*] 50 mg PO BID #60 tablet 07/07/22 Metoprolol Tartrate [Lopressor*] 25 mg PO BID 6AM 6PM #60 tab 07/07/22 levoFLOXacin [Levaquin*] 750 mg PO DAILY #14 tab 07/07/22 Nebulizer 1 each MC DAILY #1 ea 07/09/22 Nebulizer Accessories [Aeroneb Go] 1 each MC DAILY #1 ea 07/09/22 - Past Medical/Surgical History Diabetic: No -: COPD -: HTN -: HLD -: CAD -: CKD (Dr. 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 She lives by herself. - Family History Mother -: Cancer - Social History Alcohol use: No CD- Drugs: No Caffeine use: Yes Review of Systems 10-point ROS is otherwise unremarkable General: Weakness, Malaise Respiratory: As per HPI (L SIDE LOWER CHEST PAIN WHEN SHE HAD COMPRESS DURING TRANSFER PER HER. ) Physical Examination - Physical Exam General: Oriented x3, Mild distress, Moderate distress HEENT: Atraumatic, PERRLA, Mucous membr. moist/pink, EOMI, Sclerae nonicteric Neck: Supple, 2+ carotid pulse no bruit, No LAD, Without JVD or thyroid abnormality Respiratory: Clear to auscultation bilaterally, Normal air movement Cardiovascular: Regular rate/rhythm, Normal S1 S2 Gastrointestinal: Tenderness (L UQ AND LOWER CHEST FROM COMPRESSION. 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 JONO CAN GIVE RISE TO CHRONIC WEAKNESS. SHE MAY NOT DO WELL HER BODY IS GETTING WEAKER. (2) Generalized weakness Current Visit: No Status: Chronic Plan: ABOVE. IV FLUIDS. CHECK B12 TSH. (3) Dehydration Current Visit: No Status: Acute Plan: IV FLUIDS. STABLE. PT CONSULT LABORATORY MECHANICAL TECHNICIAN FOR PLACEMENT. DO ACTH STIM TEST. DAILY LAB. (4) Hypokalemia Current Visit: Yes Status: Acute - Advance Directives Does patient have a Living Will: No Does patient have a Durable POA for Healthcare: No
[2022-07-12] MEDS: Meropenem 1,000 MG in NA CHLORIDE 0.9% 100 ML IV SCH (22:38)
[2022-07-12] MEDS: NACHLORIDE 0.45% 1,000 ML IV SCH (22:38)
[2022-07-13 06:46] LABS: Absolute Lymphocytes (CBC) 1.7 K/uL (0.7-4.9); Hematocrit 33.1 % (36.0-45.0); Lymphocytes % 17.2 % (15.3-44.8); MCV 90.4 fL (80-100); MPV 8.9 fL (7.6-11.3); RBC Red Blood Cell Count 3.66 M/uL (3.86-4.86)
[2022-07-13 06:56] LABS: Magnesium 1.5 mg/dL (1.6-2.4); Potassium 3.1 mEq/L (3.5-5.1)
[2022-07-13] MEDS ORDERED: ONDANSETRON 4 MG/2 ML VIAL IV PRN (07:18)
[2022-07-13] MEDS ORDERED: ACETAMINOPHEN 500 MG TAB PO PRN (07:19)
[2022-07-13] MEDS: FAMOTIDINE 20 MG TAB PO SCH (08:01)
[2022-07-13] MEDS: LIDOCAINE 4% PATCH TOP SCH ×2 (08:01→09:00)
[2022-07-13] MEDS: Meropenem 1,000 MG in NA CHLORIDE 0.9% 100 ML IV SCH ×2 (08:01→21:45)
[2022-07-13] MEDS ORDERED: POTASSIUM CL SA 10 MEQ TAB PO ONE (09:00)
[2022-07-13] MEDS ORDERED: Magnesium Sulfate 2gm IVPB 2 G/50 ML BAG IV ONE (10:00)
--- NOTE | 2022-07-13 10:41 | P.CNS ---
Date of Consult: 07/13/22 Chief Complaint: WEAKNESS, NOT EATING, FALLING. 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 and was tried on Zosyn Zyvox and it appeared in the hospital feeling weak and nauseated currently at home patient became weak fell backwards and it appeared back in the hospital she still feels very weak Pseudomonas isolated was prescribed levofloxacin Allergies No Known Allergies Allergy (Verified 09/24/17 12:53) Home Medications: Aspirin Chewable [Aspirin Chewable*] 81 mg PO DAILY 01/18/19 Atorvastatin Calcium [Lipitor] 40 mg PO BEDTIME 01/18/19 Clopidogrel Bisulfate [Plavix*] 75 mg PO DAILY 01/18/19 Ipratropium/Albuterol Sulfate [Combivent Respimat 20-100 Mcg] 1 puff IN TID PRN 01/18/19 Ascorbic Acid [C-1000] 500 mg PO DAILY 07/04/22 Calcium Carbonate 600 mg PO DAILY 07/04/22 Cyanocobalamin (Vitamin B-12) [Vitamin B-12] 500 mcg PO DAILY 07/04/22 Furosemide 20 mg PO DAILY 07/04/22 Methylsulfonylmethane [MSM] 1,000 mg PO DAILY 07/04/22 Nitrofurantoin Monohyd/M-Cryst [Macrobid 100 mg Capsule] 100 mg PO BID 07/04/22 Promethazine HCl 6.25 mg PO TID PRN 07/04/22 glucosamine HCL [Glucosamine HCl] 1,000 mg PO DAILY 07/04/22 Albuterol Neb [Proventil 0.083% Neb Soln] 2.5 mg NEB [id number] PRN #60 amp 07/07/22 Fluconazole [Diflucan] 100 mg PO DAILY #7 tab 07/07/22 Losartan Potassium [Cozaar*] 50 mg PO BID #60 tablet 07/07/22 Metoprolol Tartrate [Lopressor*] 25 mg PO BID 6AM 6PM #60 tab 07/07/22 levoFLOXacin [Levaquin*] 750 mg PO DAILY #14 tab 07/07/22 Nebulizer 1 each MC DAILY #1 ea 07/09/22 Nebulizer Accessories [Aeroneb Go] 1 each MC DAILY #1 ea 07/09/22 - Past Medical/Surgical History Diabetic: No -: COPD -: HTN -: HLD -: CAD -: CKD (Dr. Hamm) -: History of mycobacterium infection, treated -: Former tobacco use -: Arterial bypass of the left carotid artery -: Tubal ligation -: Left wrist surgery Psychosocial/ Personal History: Patient is a . She lives by herself. - Family History Mother Medical History: Cancer - Social History Smoking Status: Unknown if ever smoked Alcohol use: No CD- Drugs: No Caffeine use: Yes Place of Residence: Home Review of Systems General: Weakness Respiratory: Cough, Shortness of Breath Physical Examination Temp Pulse Resp BP Pulse Ox 96.5 F L 61 16 165/68 H 94 07/13/22 08:00 07/13/22 08:00 07/13/22 08:00 07/13/22 08:00 07/13/22 08:00 General: Alert, Oriented x3 Cardiovascular: Regular rate/rhythm, Normal S1 S2 Gastrointestinal: Normal bowel sounds, Soft and benign Laboratory Data (last 24 hrs) 07/12/22 13:34: PT 12.2, INR 1.11, APTT 25.8 07/12/22 13:34: Sodium 134 L, Potassium 3.1 L, BUN 31 H, Creatinine 2.15 H, Glucose 99, Total Bilirubin 0.9, AST 24, ALT 31, Alkaline Phosphatase 76 07/12/22 13:34: WBC 10.70, Hgb 11.5 L, Hct 35.0 L, Plt Count 259 - Problems (1) Weakness Current Visit: Yes Status: Acute Plan: Patient is 87 years of age with a history of atypical Mycobacterium infection was treated for a bacterium avium before and 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 Sputum cultures ordered blood pressures little elevated chest x-ray no change chronic interstitial changes with bullous changes prognosis poor
[2022-07-13] MEDS: NACHLORIDE 0.45% 1,000 ML IV SCH (11:27)
--- NOTE | 2022-07-13 12:30 | P.PN ---
Subjective Date of Service: 07/13/22 Chief Complaint: LOT BETTER TODAY Subjective: Improving SHE IS STRONGER, FEELS BETTER. SHE HAS THE MAIN DIRECTOR SALES AND MARKETING, GRANDSON AND DAUGHTER ALL AT BEDSIDE TODAY. YESTERDAY I TALKED TO FIRST TWO SEPARATELY. THEY ARE FRUSTRATED SHE IS NOT STAYING WELL. I EXPLAINED IN DETAIL THE NATURE SO MAC INFECTIONS THAT THEY ARE VERY DIFFICULT TO GET RID OFF AND SO CHRONIC INFECTION MAKES A PATIENT FEEL BAD AND WEAK. SHE MUST BE ENCOURAGED TO EAT WELL AND SHOULD HAVE 24 HOURS HELP AT HOME. ON THURSDAY THERE IS NO PT SO SHE WILL SEE PT IN AM. Review of Systems 10-point ROS is otherwise unremarkable General: Weakness Physical Examination - Vital Signs Temperature: 96.6 F Blood Pressure: 119/58 Pulse: 65 Respirations: 16 Pulse Ox (%): 93 - Physical Exam General: Oriented x3, Mild distress HEENT: Atraumatic, PERRLA, EOMI Neck: Supple, JVD not distended Respiratory: Clear to auscultation bilaterally, Normal air movement Cardiovascular: Regular rate/rhythm, Normal S1 S2 Gastrointestinal: Normal bowel sounds, No tenderness Musculoskeletal: No tenderness Integumentary: No rashes Neurological: Normal speech, Normal tone, Normal affect Lymphatics: No axilla or inguinal lymphadenopathy - Studies Laboratory Data (last 24 hrs) 07/12/22 13:34: PT 12.2, INR 1.11, APTT 25.8 07/12/22 13:34: Sodium 134 L, Potassium 3.1 L, BUN 31 H, Creatinine 2.15 H, Glucose 99, Total Bilirubin 0.9, AST 24, ALT 31, Alkaline Phosphatase 76 07/12/22 13:34: WBC 10.70, Hgb 11.5 L, Hct 35.0 L, Plt Count 259 Medications List Reviewed: Yes Assessment And Plan - Current Problems (Diagnosis) (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 JONO CAN GIVE RISE TO CHRONIC WEAKNESS. SHE MAY NOT DO WELL HER BODY IS GETTING WEAKER. DR DANIEL HAS TO WAIT FOR CULTURES TO RETURN TO DECIDE ANTIBIOTIC CHOICE. HE HAS TALKED TO FAMILY. THEY ARE STARTING TO UNDERSTAND THE LINGERING NATURE OF THIS INFECTION AFTER TODAY'S TALK. (2) Generalized weakness Current Visit: No Status: Chronic Plan: ABOVE. IV FLUIDS. CHECK B12 TSH. (3) Dehydration Current Visit: No Status: Acute Plan: IV FLUIDS. STABLE. PT CONSULT COMPUTING SYSTEMS MECHANIC FOR PLACEMENT. DO ACTH STIM TEST. DAILY LAB. CREAT HAS COME DOWN TO 1.74. (4) Hypokalemia Current Visit: Yes Status: Acute
[2022-07-13] MEDS: ENOXAPARIN 30 MG/0.3 ML SQ SCH (16:33)
[2022-07-14 00:41] VITALS: BMI 22.3
[2022-07-14 03:36] LABS: Absolute Lymphocytes (CBC) 2.1 K/uL (0.7-4.9); Hematocrit 29.1 % (36.0-45.0); Lymphocytes % 20.7 % (15.3-44.8); MCV 89.5 fL (80-100); MPV 8.5 fL (7.6-11.3); RBC Red Blood Cell Count 3.25 M/uL (3.86-4.86)
[2022-07-14] MEDS: NACHLORIDE 0.45% 1,000 ML IV SCH ×2 (03:44→16:44)
[2022-07-14 03:46] LABS: Potassium 3.5 mEq/L (3.5-5.1)
[2022-07-14] MEDS: LIDOCAINE 4% PATCH TOP SCH (09:00)
[2022-07-14] MEDS ORDERED: POTASSIUM CL SA 10 MEQ TAB PO ONE (09:00)
--- NOTE | 2022-07-14 09:03 | RAD REPORT ---
EXAM DESCRIPTION: CT - Thorax Wo Con - 07/14/2022 8:38 am CLINICAL HISTORY: decide on biopsy, lesion COMPARISON: Thorax W/ Con dated 04/09/2022; Thorax W/ Con dated 01/17/2022; Thorax W/ Con dated 2021; Thorax W/ Con dated 2Chest Abd Pelvis Wo Con dated 07/02/2022; Thorax W/ Con dated 2018; Thorax Wo Con dated 07/31/2017; Thorax Wo Con dated 11/02/2015 FINDINGS: Chest Wall: No suspicious thyroid nodules or pathologic lymphadenopathy. Lungs: Thick-walled cavitary structure at the right lung apex is again noted. There are other areas o f cystic changes, nodularity, and other nondescript pulmonary opacities. There are areas of nodularit y in the right lower lobe that have progressed since 07/02/2022 and likely represent increasing infla mmation associated with cystic changes as result of emphysema. Pleura: Trace bilateral pleural effusions. The findings have all progressed since 07/31/2017. Mediastinum/ike: No pathologic lymphadenopathy. Small hiatal hernia. Pulmonary arteries/Aorta: Limited evaluation without contrast. No aortic aneurysm. Heart: No significant pericardial effusion. Normal heart size. Atherosclerosis. Multi-vessel coronary artery disease. Upper abdomen: No acute abnormality. Bones: No acute abnormality. All CT scans are performed using dose optimization technique as appropriate and may include automated exposure control or mA/KV adjustment according to patient size. IMPRESSION: Compared with 11/02/2015, slow but continued progression of cavitation in the right uppe r lobe and other areas increasing nodularity and subpleural thickening.These findings are more indica tive of a chronic/indolent infectious process. Reportedly, the patient has had previous bronchoscopic washing consistent with mycobactrium avium complex (MAC). These findings are likely all related. Alva picion for neoplasm is very low. 3 month follow-up chest CT or PET/CT may be helpful to establish sta bility and/or exclude a suspicious lesion intermixed within these findings.
[2022-07-14] MEDS: ESCITALOPRAM 20 MG TAB PO SCH (09:34)
[2022-07-14] MEDS: Meropenem 1,000 MG in NA CHLORIDE 0.9% 100 ML IV SCH ×2 (09:37→20:45)
[2022-07-14] MEDS: FAMOTIDINE 20 MG TAB PO SCH (09:37)
--- NOTE | 2022-07-14 12:41 | EKG ---
Test Date: 2022-07-12 Test Time: 13:18:41 Panel Machine Tender: KEZIA MEASUREMENT RESULTS: Intervals: Rate: 56 IL: 128 QRSD: 92 QT: 452 QTc: 436 [place]: P: 58 IL: 128 QRS: 76 T: 65 INTERPRETIVE STATEMENTS: Sinus bradycardia with premature supraventricular complexes Otherwise normal ECG Compared to ECG 07/02/2022 16:58:11 Sinus rhythm no longer present Electronically Signed On 07-14-22 12:38:49 CDT by Bonifacio Petersen
[2022-07-14] MEDS: AZITHROMYCIN 250 MG TAB PO SCH (16:39)
[2022-07-14] MEDS: ENOXAPARIN 30 MG/0.3 ML SQ SCH (16:48)
--- NOTE | 2022-07-14 17:53 | P.PN ---
Subjective Date of Service: 07/14/22 Chief Complaint: LOT BETTER TODAY Subjective: Improving SHE IS STRONGER, FEELS BETTER. SHE HAS THE MAIN FILM RENTAL CLERK, GRANDSON AND DAUGHTER ALL AT BEDSIDE TODAY. YESTERDAY I TALKED TO FIRST TWO SEPARATELY. THEY ARE FRUSTRATED SHE IS NOT STAYING WELL. I EXPLAINED IN DETAIL THE NATURE SO MAC INFECTIONS THAT THEY ARE VERY DIFFICULT TO GET RID OFF AND SO CHRONIC INFECTION MAKES A PATIENT FEEL BAD AND WEAK. SHE MUST BE ENCOURAGED TO EAT WELL AND SHOULD HAVE 24 HOURS HELP AT HOME. ON THURSDAY THERE IS NO PT SO SHE WILL SEE PT IN AM. SHE IS CRYING SHE DOES NOT WANT TO GO TO [place] FOR IV ABX. Review of Systems 10-point ROS is otherwise unremarkable General: Weakness Physical Examination - Vital Signs Temperature: 96.8 F Blood Pressure: 105/54 Pulse: 66 Respirations: 16 Pulse Ox (%): 98 - Physical Exam General: Oriented x3, Mild distress HEENT: Atraumatic, PERRLA, EOMI Neck: Supple, JVD not distended Respiratory: Clear to auscultation bilaterally, Normal air movement Cardiovascular: Regular rate/rhythm, Normal S1 S2 Gastrointestinal: Normal bowel sounds, No tenderness Musculoskeletal: No tenderness Integumentary: No rashes Neurological: Normal speech, Normal tone, Normal affect Lymphatics: No axilla or inguinal lymphadenopathy - Studies Medications List Reviewed: Yes Assessment And Plan - Current Problems (Diagnosis) (1) 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 CONTINUE IT AND ZITHORMAX FOR MAC INFECTION. I ALSO TALKED TO DR PERRIN AND HE SUGGGESTED THAT THERS NOTHING BIOPSY FROM OUTSIDE. THERE IS NO CAVITARY LESION PER HIM. (2) Generalized weakness Current Visit: No Status: Chronic Plan: ABOVE. IV FLUIDS. CHECK B12 TSH. (3) Dehydration Current Visit: No Status: Acute Plan: IV FLUIDS. STABLE. PT CONSULT CHECK OUT CASHIER FOR PLACEMENT. DO ACTH STIM TEST. DAILY LAB. CREAT HAS COME DOWN TO 1.74. (4) Hypokalemia Current Visit: Yes Status: Acute
[2022-07-14] MEDS ORDERED: Mupirocin NASAL 2 APPL/1 GM TUBE NAS SCH (21:00)
[2022-07-15] MEDS: NACHLORIDE 0.45% 1,000 ML IV SCH ×2 (00:20→08:51)
[2022-07-15 03:38] LABS: Absolute Lymphocytes (CBC) 1.7 K/uL (0.7-4.9); Hematocrit 29.1 % (36.0-45.0); Lymphocytes % 17.3 % (15.3-44.8); MCV 90.1 fL (80-100); MPV 8.7 fL (7.6-11.3); RBC Red Blood Cell Count 3.23 M/uL (3.86-4.86)
[2022-07-15 04:02] LABS: Magnesium 1.6 mg/dL (1.6-2.4); Potassium 3.6 mEq/L (3.5-5.1)
[2022-07-15] MEDS ORDERED: POTASSIUM CL SA 10 MEQ TAB PO ONE (07:53)
[2022-07-15] MEDS ORDERED: NA CHLORIDE 0.9% 100 ML ONE (08:26)
[2022-07-15] MEDS: AZITHROMYCIN 250 MG TAB PO SCH (08:49)
[2022-07-15] MEDS: FAMOTIDINE 20 MG TAB PO SCH (08:49)
[2022-07-15] MEDS: ESCITALOPRAM 20 MG TAB PO SCH (08:49)
[2022-07-15] MEDS: LIDOCAINE 4% PATCH TOP SCH (08:50)
[2022-07-15] MEDS: Meropenem 1,000 MG in NA CHLORIDE 0.9% 100 ML IV SCH ×2 (08:51→20:30)
--- NOTE | 2022-07-15 16:09 | RAD REPORT ---
EXAM DESCRIPTION: RAD - Chest Single View - 07/15/2022 1:53 am XR Chest, 1 View CLINICAL HISTORY: The patient is 87 years old and is Female; picc line placement TECHNIQUE: Frontal view of the chest. COMPARISON: XR Chest dated July 12 2022 FINDINGS: LUNGS: Cavitary lesion within the right upper lobe is present. The lungs are hyperinflated with coarsened interstitial markings. Right lower lobe opacity is present. PLEURAL SPACE: Unremarkable. No pneumothorax. HEART: Unremarkable. No cardiomegaly. MEDIASTINUM: Unremarkable. BONES/JOINTS: Unremarkable. VASCULATURE: Atherosclerosis of the aorta is present. TUBES, LINES AND DEVICES: A right upper extremity PICC is present with the tip in the region of the SVC. UPPER ABDOMEN: Unremarkable as visualized. IMPRESSION: 1. A right upper extremity PICC is present with the tip in the region of the SVC. 2. Stable chest. Electronically signed by: Madison Lomas MD 07/15/2022 2:51 AM CDT Due to temporary technical issues with the PACS/Fluency reporting system, reports are being signed by the in house radiologists without review as a courtesy to insure prompt reporting. The interpreting radiologist is fully responsible for the content of the report. JESÚS
[2022-07-15] MEDS: ENOXAPARIN 30 MG/0.3 ML SQ SCH (16:12)
[2022-07-15] MEDS: ENSURE ENLIVE 237 ML CAN PO SCH (20:31)
[2022-07-16] MEDS: NACHLORIDE 0.45% 1,000 ML IV SCH ×2 (03:18→21:26)
[2022-07-16 05:13] LABS: Absolute Lymphocytes (CBC) 1.8 K/uL (0.7-4.9); Lymphocytes % 23.2 % (15.3-44.8); MCV 89.8 fL (80-100); MPV 8.6 fL (7.6-11.3); RBC Red Blood Cell Count 3.12 M/uL (3.86-4.86)
[2022-07-16 05:25] LABS: Magnesium 1.7 mg/dL (1.6-2.4)
[2022-07-16] MEDS ORDERED: MAGNESIUM SULFATE 1 gm IVPB 1 GM/100 ML BAG IV ONE (05:32)
[2022-07-16] MEDS: LIDOCAINE 4% PATCH TOP SCH (09:00)
[2022-07-16] MEDS: AZITHROMYCIN 250 MG TAB PO SCH (09:09)
[2022-07-16] MEDS: ESCITALOPRAM 20 MG TAB PO SCH (09:09)
[2022-07-16] MEDS: FAMOTIDINE 20 MG TAB PO SCH (09:09)
[2022-07-16] MEDS: ENSURE ENLIVE 237 ML CAN PO SCH ×2 (09:10→21:20)
[2022-07-16] MEDS: Meropenem 1,000 MG in NA CHLORIDE 0.9% 100 ML IV SCH ×2 (09:10→21:20)
[2022-07-16] MEDS: ENOXAPARIN 30 MG/0.3 ML SQ SCH (16:13)
--- NOTE | 2022-07-16 22:10 | P.PN ---
Subjective Date of Service: 07/16/22 Chief Complaint: LOT BETTER TODAY Subjective: Improving SHE IS USUALLY STRESSED AND ANGRY BUT AFTER BEING ON LEXAPRO SHE IS LOT CALMER. MERREM TO BE CONTINUED IN REHAB. SHE WILL GO TO REHAB IN AM. 4 Review of Systems 10-point ROS is otherwise unremarkable Physical Examination - Vital Signs Temperature: 97.5 F Blood Pressure: 126/58 Pulse: 69 Respirations: 18 Pulse Ox (%): 94 - Physical Exam General: Oriented x3, Mild distress HEENT: Atraumatic, PERRLA, EOMI Neck: Supple, JVD not distended Respiratory: Clear to auscultation bilaterally, Normal air movement Cardiovascular: Regular rate/rhythm, Normal S1 S2 Gastrointestinal: Normal bowel sounds, No tenderness Musculoskeletal: No tenderness Integumentary: No rashes Neurological: Normal speech, Normal tone, Normal affect Lymphatics: No axilla or inguinal lymphadenopathy - Studies Medications List Reviewed: Yes Assessment And Plan - Current Problems (Diagnosis) (1) 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 CONTINUE IT AND ZITHORMAX FOR MAC INFECTION. I ALSO TALKED TO DR PERRIN AND HE SUGGGESTED THAT THERS NOTHING BIOPSY FROM OUTSIDE. THERE IS NO CAVITARY LESION PER HIM. IV ABX FOR 6 WEEKS . PROGNOSIS IS GUARDED THIS KIND OF INFECTION ARE NOT CURABLE. (2) Generalized weakness Current Visit: No Status: Chronic Plan: ABOVE. IV FLUIDS. CHECK B12 TSH. (3) Dehydration Current Visit: No Status: Acute Plan: IV FLUIDS. STABLE. PT CONSULT CORE MACHINE OPERATOR FOR PLACEMENT. DO ACTH STIM TEST. DAILY LAB. CREAT HAS COME DOWN TO 1.74. (4) Hypokalemia Current Visit: Yes Status: Acute
[2022-07-17 05:34] LABS: Absolute Lymphocytes (CBC) 1.9 K/uL (0.7-4.9); Hematocrit 27.1 % (36.0-45.0); Lymphocytes % 28.3 % (15.3-44.8); MCV 89.5 fL (80-100); MPV 8.8 fL (7.6-11.3); RBC Red Blood Cell Count 3.03 M/uL (3.86-4.86)
[2022-07-17 05:54] LABS: Magnesium 1.8 mg/dL (1.6-2.4); Potassium 3.8 mEq/L (3.5-5.1)
[2022-07-17] MEDS ORDERED: MAGNESIUM SULFATE 1 gm IVPB 1 GM/100 ML BAG IV ONE (08:00)
[2022-07-17 08:33] VITALS: BP 116/55; TEMP 96.9
[2022-07-17] MEDS: Meropenem 1,000 MG in NA CHLORIDE 0.9% 100 ML IV SCH (08:36)
[2022-07-17] MEDS: LIDOCAINE 4% PATCH TOP SCH (08:38)
[2022-07-17] MEDS: AZITHROMYCIN 250 MG TAB PO SCH (08:38)
[2022-07-17] MEDS: FAMOTIDINE 20 MG TAB PO SCH (08:39)
[2022-07-17] MEDS: ESCITALOPRAM 20 MG TAB PO SCH (08:39)
[2022-07-17] MEDS: ENSURE ENLIVE 237 ML CAN PO SCH (08:42)
[2022-07-17] MEDS ORDERED: POTASSIUM 25 MEQ EFFERV TAB PO ONE (09:00)
[2022-07-17 10:22] VITALS: O2SAT 94
--- NOTE | 2022-07-28 13:05 | P.DS ---
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 DR. DANIEL HAS TAKEN CARE OF HER FOR A YEAR AND HE IS AWARE THAT SHE HAS THIS FOR A YEAR. SHE ALSO GOES TO DR. HARRY Ponce PRIMARY DOCTOR WHO IS HSE MANAGER. FAMILY THINKS THAT DR. DANIEL IS NOT DOING MUCH FOR HER BUT I EXPLAINED THAT THE JONO OR MAC INFECTIONS HAVE NO CURE AND IS THE REASON SHE IS DEBILTIATED AND WEAK. SHE COMES BACK SHE IS GETTING WEAKER. I TALKED TO [facility] WHO HAS ALL THE HISTORY AND THE GRANDSON WHO CALLED FROM ER. I SAW HER IN ER ABOUT AN HOUR AGO. Hospital Course: SERA JOHNS HAS MYCOBACTERIAL ABSCESSES. SHE NEEDS JAIL MERREM. HAS DONE WELL SO FAR. I PUT HER ON LEXAPRO FOR ANGER AND ANXIETY. SHE HAS DONE WELL WITH IT. SHE IS NOW SENT TO REHAB FOR PT. Vital Signs/Physical Exam: Temp Pulse Resp BP Pulse Ox 96.9 F 59 16 116/55 L 94 07/17/22 08:00 07/17/22 08:00 07/17/22 08:00 07/17/22 08:00 07/17/22 08:00 Laboratory Data at Discharge: WBC 6.60 thou/uL (4.3-10.9) 07/17/22 05:18 Hgb 9.4 g/dL (12.0-15.0) L 07/17/22 05:18 Hct 27.1 % (36.0-45.0) L 07/17/22 05:18 Plt Count 170 thou/uL (152-406) 07/17/22 05:18 PT 12.2 SECONDS (9.5-12.5) 07/12/22 13:34 INR 1.11 07/12/22 13:34 APTT 25.8 SECONDS (24.3-36.9) 07/12/22 13:34 Sodium 136 mEq/L (136-145) 07/17/22 05:18 Potassium 3.8 mEq/L (3.5-5.1) 07/17/22 05:18 BUN 16 mg/dL (7-18) 07/17/22 05:18 Creatinine 0.76 mg/dL (0.55-1.02) 07/17/22 05:18 Glucose 65 mg/dL (74-106) L 07/17/22 05:18 Magnesium 1.8 mg/dL (1.6-2.4) 07/17/22 05:18 Total Bilirubin 0.9 mg/dL (0.2-1.0) 07/12/22 13:34 AST 24 U/L (15-37) 07/12/22 13:34 ALT 31 U/L (13-56) 07/12/22 13:34 Alkaline Phosphatase 76 U/L (45-117) 07/12/22 13:34 Home Medications: Aspirin Chewable [Aspirin Chewable*] 81 mg PO DAILY 01/18/19 Atorvastatin Calcium [Lipitor] 40 mg PO BEDTIME 01/18/19 Clopidogrel Bisulfate [Plavix*] 75 mg PO DAILY 01/18/19 Ipratropium/Albuterol Sulfate [Combivent Respimat 20-100 Mcg] 1 puff IN TID PRN 01/18/19 Ascorbic Acid [C-1000] 500 mg PO DAILY 07/04/22 Cyanocobalamin (Vitamin B-12) [Vitamin B-12] 500 mcg PO DAILY 07/04/22 Methylsulfonylmethane [MSM] 1,000 mg PO DAILY 07/04/22 glucosamine HCL [Glucosamine HCl] 1,000 mg PO DAILY 07/04/22 Azithromycin Tab [Zithromax*] 500 mg PO DAILY tab 07/16/22 Ensure Enlive 237 ml PO BID can 07/16/22 Escitalopram [Lexapro*] 20 mg PO DAILY tab 07/16/22 Famotidine [Pepcid*] 20 mg PO DAILY tab 07/16/22 Lidocaine 4% Patch [Lidoderm 5% Patch*] 1 patch TOP DAILY pat 07/16/22 Docusate/Senna [Senokot-S*] 2 tab PO BEDTIME PRN tab 07/25/22 Meropenem-0.9% Sodium Chloride [Meropenem-0.9% NaCl 1 Gram/50] 1 gm IV BID #30 piggyback 07/25/22 Followup: Harry Hamm DO [Primary Care Provider] - Samm Nickerson MD [ASSOCIATE-ACTIVE - CAN ADMIT] -
== END 2022-07-17 10:57 | DRG 179 ==
LOC: ER 12:28 → ERHOLD 17:52 → 2ND 20:17
PROVIDERS: ADMIT Internal Medicine; ATTEND Internal Medicine
PROC: 02HV33Z Insertion of Infusion Device into Superior Vena Cava, Percutaneous Approach (ICD-10-PCS; principal; 2022-07-15)
DX: A31.0 Pulmonary mycobacterial infection (principal); I10 Essential (primary) hypertension; J44.9 Chronic obstructive pulmonary disease, unspecified; E78.5 Hyperlipidemia, unspecified; E87.6 Hypokalemia; E86.0 Dehydration; I25.10 Atherosclerotic heart disease of native coronary artery without angina pectoris; Z60.2 Problems related to living alone; Z79.82 Long term (current) use of aspirin; Z98.51 Tubal ligation status; Z79.02 Long term (current) use of antithrombotics/antiplatelets; Z79.899 Other long term (current) drug therapy
CPT/HCPCS: 36415; 36569; 71045; 71250; 74176; 80048; 80053; 82947; 83605; 83735; 84132; 84443; 85025; 85610; 85730; 86850; 86900; 86901; 87040; 87070; 87205; 93005; 97116; 97161; 97165; 97530; 99285; J1650; J2001; J2185; J3475; J3480

== ENCOUNTER 2022-07-17 10:55 | Inpatient (IN) | payer OTHER ==
[2022-07-17] MEDS ORDERED: ONDANSETRON 4 MG (ODT) TAB PO PRN (13:10)
[2022-07-17] MEDS ORDERED: DOCUSATE NA/SENNA CONC 1 TAB PO PRN (13:12)
[2022-07-17] MEDS ORDERED: MELATONIN 3 MG TABLET PO PRN (13:12)
[2022-07-17] MEDS ORDERED: ALBUTEROL 2.5 MG/3 ML NEB SOL NEB PRN (13:18)
[2022-07-17] MEDS ORDERED: COMBIVENT RESPIMAT IH PRN (13:28)
[2022-07-17] MEDS: ENOXAPARIN 30 MG/0.3 ML SQ SCH (17:44)
[2022-07-17] MEDS ORDERED: NA CHLORIDE 0.9% 250 ML ONE (19:26)
[2022-07-17] MEDS: Meropenem 1,000 MG in NA CHLORIDE 0.9% 100 ML IV SCH (20:21)
[2022-07-17] MEDS: ATORVASTATIN 40 MG TAB PO SCH (20:22)
[2022-07-17] MEDS: ENSURE ENLIVE 237 ML CAN PO SCH (20:22)
--- NOTE | 2022-07-17 21:25 | HP ---
Date of Admission: 07/17/2022 H[facility]It[facility] Admission History And Physical Chief Complaint: "I became very weak and was falling a lot." History Of Present Illness: Ms. Clayton is an 87-year-old right-handed patient who has a diagnosis o f Mycobacterium avium-intracellulare infection complex. She was diagnosed over a year ago and has be en followed by the computer system technician Dr. Black, catcher plug Dr. Mcdonald and [facility] Due to the condition, for which there is no cure, she has been chronically treated with mult iple antibiotics and was actually treated for multiple abscesses related to the mycobacterium infecti on. She had Zosyn and Zyvox, but did not tolerate that treatment and became progressively weak despi te the treatment. She was seen at [facility] Emergency Room and was diagnosed with pseudomonas for w hich she received levofloxacin and she was discharged home. However, her weakness progressed and beg an to fall more including falling backwards. She came back to [facility] where workup showe d mild anemia, worsening renal function with creatinine 2.15 and BUN 31. Hemoglobin was low to 11.5, hematocrit 35, and she was hypokalemic. She was admitted for fluid and electrolyte management and I V meropenem to treat her pseudomonas infection. She was evaluated by Physical and Occupational Thera py Service and found to require moderate assistance for bed mobility, minimum assist for all transfer s and her gait. She had poor head and trunk control, decreased strength and endurance and with pain and poor safety awareness, it was recommended that she have inpatient rehabilitation for both medical management and for her aggressive physical therapy. Admitting her to a lower level of care such as fdc, would not be advisable as she requires frequent medical management. Past Medical History: COPD, hypertension, dyslipidemia, and coronary artery disease. Past Surgical History: Arterial bypass in left carotid. Allergies: NO KNOWN DRUG ALLERGIES. Social History: No alcohol, tobacco, or drug use. X-ray/imaging: Chest x-ray on 07/14/2022 showed slow progression of cavitation in the right upper lo be and other areas with increasing nodularity and subpleural thickening. 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 Findings consistent with acute descend ing diverticulitis. Note, she was seen by the Pulmonary Service and Renal Service while in hospital. Current Medications: Extra-strength Tylenol 500 mg every 4 hours, albuterol 2.5 nebulizer every 6 ho urs, vitamin C 500 mg daily, aspirin 81 mg daily, Lipitor 40 mg at bedtime, Plavix 75 mg daily, vitam in B12 500 mcg daily, Lovenox 30 mg subcutaneously daily, Lexapro 20 mg daily, lidocaine patch 1 patc h to painful area daily, melatonin 3 mg at bedtime, meropenem IV 1000 mg every 12 hours, Ensure Enliv e 237 mL twice daily, Zofran 4 mg every 4 hours as needed, and Senokot-S 2 at bedtime. Laboratory Studies: White blood cell count 6.6, hemoglobin 9.4, and platelets 170. Sodium 136, pota ssium 3.8, chloride 106, carbon dioxide 28, BUN 16, creatinine 0.76, glucose 65, calcium 8.0, and mag nesium 1.8. Urinalysis shows esterase 250, trace budding yeast, otherwise negative. COVID testing n egative on 07/02. Influenza A and B negative on 07/02. Review of Systems: Ms. Clayton is sitting in a chair. Therapist is next to her, beginning to work with her. She does r eport some shortness of breath and some myalgias and arthralgias. No fevers or chills. No rash. No active psychiatric issues. No significant dermatological, genitourinary, or gastrointestinal issues . Physical Examination: Vital Signs: Blood pressure 122/59, pulse 60, respiratory rate 18, temperature 97.8, and oxygen satu ration 96% on 2 L oxygen via nasal cannula. General: Ms. Clayton is resting comfortably in a chair. HEENT: She appears normocephalic, atraumatic. Sclerae anicteric. Neurologic: She appears to have no focal deficits in upper and lower extremities. Diffuse weakness noted in upper and lower extremities. Abdomen: Not protuberant, otherwise negative examination. Current Level Of Functioning: Today she did stand and pivot transfer with moderate assistance using a rolling walker. She did perform supine to sit transfer with contact guard to minimum assistance. She did ambulate 100 feet twice then 50 feet and 70 feet with contact guard assistance using a kade g walker. Today performed a shower with fair balance while sitting and lateral flexing and forward t runk flexion without loss of balance. She was seen and evaluated by Speech Therapy and was determine d to be able to use internal and external strategies to recall 4 of 4 pieces of information with mini mum assistance. Rehabilitation And Medical Assessment And Plan: Her rehabilitation impairment category is 15 pulmona ry. Her impairment group code is 10.9 other pulmonary. Etiologic diagnosis is atypical mycobacteriu m lung infection. Active comorbids are dehydration, hypokalemia, and diffuse weakness. Plan: 1.She will have physical, occupational, and speech therapy 3.5 hours, 5 of 7 days. 2.For her mycobacterium infection, she will continue with the meropenem 1 g every 12 hours. 3.For poor nutrition, Ensure Enlive 237 mL twice daily. 4.For nausea and vomiting, Zofran. 5.Lexapro for depression. 6.Plavix 75 mg daily and aspirin 81 mg daily for stroke risk reduction. 7.Lipitor 40 mg daily for dyslipidemia. 8.Albuterol nebulizer for her respiratory insufficiency. Impact Of Comorbids: Given her pulmonary status, she is doing well despite the mycobacterium infecti on in terms of oxygen saturation and ability to begin mobilizing. She will continue with the antibio tics and noted is incurable. Continue with DVT prophylaxis and oxygen by nasal cannula. Rehab Specific Plan: Note, she will have physical and occupational along with speech therapy 3.5 olga rs, 5 of 7 days and she will also have fdc to address her multiple comorbid conditions, c ontinue IV antibiotics and check hemoglobin, hematocrit, and white blood cell count and kidney functi on along with liver function and manage her pain and sleep and GI needs. The patient and her family have a good understanding of her admission to the inpatient rehabilitation unit. She has a potential to make great improvement in her ability to transfer, ambulate, and to [facility] activities of daily living with multidisciplinary approach including physical, occupational, an d speech therapy. If need be, assistance will be from the Respiratory Service, Nutrition Service, Re nal Service and Psychiatric Service. Given her complex medical condition and risk of further medical complications, rehabilitation cannot be safely provided at a lower level of care such as skilled yin sing. Barriers To Discharge: Given her Mycobacterium avium, which is incurable, she is likely to have resp iratory challenges chronically and at this point is managed with oxygen, nebulizers, and antibiotics. Estimated Length Of Stay: Around 10 days. Disposition: Home. Prognosis: Good despite her medical complications. Rehabilitation Goals: 1.Transfer with modified independence from bed to chair, to shower, to toilet. 2.Upper and lower body dressing with modified independence. 3.Don and doffing shoes with modified independence. 4.Showering with modified independence. 5.Ambulate over 250 feet with modified independence. 6.Up and down 10 steps with modified independent. I have personally performed a full physical examination on patient Su Clayton, no later than 24 ho urs after her admission to the inpatient rehabilitation unit and determined that she is able to glenn ate the above course of treatment at the intensive level stated and at a reasonable time. A detailed individualized plan of care for her will be completed by hospital day 4 based on her preadmission sc reen, admission history and physical, and therapy evaluations. BETH/ROBERTO Voice ID: [id number]
[2022-07-18 05:53] LABS: Absolute Lymphocytes (CBC) 2.2 K/uL (0.7-4.9); Hematocrit 28.1 % (36.0-45.0); Lymphocytes % 33.1 % (15.3-44.8); MCV 89.1 fL (80-100); MPV 9.2 fL (7.6-11.3); RBC Red Blood Cell Count 3.16 M/uL (3.86-4.86)
[2022-07-18 05:55] LABS: Specific Gravity 1.017 (1.005-1.030); Urine Bacteria <20 /HPF (<20); Urine Bilirubin NEGATIVE (Negative); Urine Blood Negative (Negative); Urine Clarity Clear (Clear); Urine Color Light-Yellow (Yellow); Urine Glucose NEGATIVE (Negative); Urine Mucus Slight /HPF (None Seen); Urine Protein TRACE (Negative); Urine RBC <5 /HPF (None Seen); Urine Urobilinogen Normal (Normal); Urine pH 5.5 (5.0-7.0)
[2022-07-18 06:17] LABS: Albumin 1.9 g/dL (3.4-5.0); Prealbumin 12.7 mg/dL (20-40)
[2022-07-18] MEDS: LIDOCAINE 4% PATCH TOP SCH (07:14)
[2022-07-18] MEDS: Meropenem 1,000 MG in NA CHLORIDE 0.9% 100 ML IV SCH ×2 (07:14→20:32)
[2022-07-18] MEDS: AZITHROMYCIN 250 MG TAB PO SCH (07:55)
[2022-07-18] MEDS: CYANOCOBALAMIN 1,000 MCG TAB PO SCH (07:55)
[2022-07-18] MEDS: ASPIRIN 81 MG CHEWABLE TABLET PO SCH (07:56)
[2022-07-18] MEDS: ESCITALOPRAM 20 MG TAB PO SCH (07:56)
[2022-07-18] MEDS: SODIUM CHLORIDE 0.9% 10ML INJ IV SCH ×2 (07:56→20:32)
[2022-07-18] MEDS: CLOPIDOGREL 75 MG TABLET PO SCH (07:56)
[2022-07-18] MEDS: ENSURE ENLIVE 237 ML CAN PO SCH ×2 (07:56→20:31)
[2022-07-18] MEDS: FAMOTIDINE 20 MG TAB PO SCH (07:56)
[2022-07-18] MEDS: ASCORBIC ACID 500 MG TABLET PO SCH (07:57)
[2022-07-18] MEDS: GLUCOSAMINE HCL 1000 MG PO SCH (08:00)
[2022-07-18] MEDS: NYSTATIN PWDR 100000 UNIT/GM TOP SCH ×2 (08:00→20:32)
[2022-07-18] MEDS: METHYLSULFONYLMETHANE 1000 MG PO SCH (08:00)
--- NOTE | 2022-07-18 08:54 | P.RH.PN ---
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 Biologist Goal: Mobility, Transfers, Self Care Vital Signs: Last Vital Signs Temp 96.8 F 07/17/22 21:07 Pulse 69 07/17/22 21:07 Resp 18 07/17/22 21:07 BP 126/54 L 07/17/22 21:07 Pulse Ox 97 07/17/22 21:07 Laboratory: Laboratory Last Values WBC 6.70 thou/uL (4.3-10.9) 07/18/22 05:20 RBC 3.16 M/uL (3.86-4.86) L 07/18/22 05:20 Hgb 9.1 g/dL (12.0-15.0) L 07/18/22 05:20 Hct 28.1 % (36.0-45.0) L 07/18/22 05:20 MCV 89.1 fL (80-100) 07/18/22 05:20 MCH 28.7 pg (27.0-35.0) D 07/18/22 05:20 MCHC 32.2 g/dL (32.0-36.0) 07/18/22 05:20 RDW 14.3 % (12.1-15.2) 07/18/22 05:20 Plt Count 160 thou/uL (152-406) 07/18/22 05:20 MPV 9.2 fL (7.6-11.3) 07/18/22 05:20 Neutrophils % 49.0 % (41.7-73.7) 07/18/22 05:20 Lymphocytes % 33.1 % (15.3-44.8) 07/18/22 05:20 Monocytes % 12.7 % (3.3-12.3) H 07/18/22 05:20 Eosinophils % 4.2 % (0-4.4) 07/18/22 05:20 Basophils % 1.0 % (0-1.3) 07/18/22 05:20 Absolute Neutrophils 3.3 K/uL (1.8-8.0) 07/18/22 05:20 Absolute Lymphocytes 2.2 K/uL (0.7-4.9) 07/18/22 05:20 Absolute Monocytes 0.8 K/uL (0.1-1.3) 07/18/22 05:20 Absolute Eosinophils 0.3 K/uL (0-0.5) 07/18/22 05:20 Absolute Basophils 0.1 K/uL (0-0.5) 07/18/22 05:20 Sodium 138 mEq/L (136-145) 07/18/22 05:20 Potassium 4.0 mEq/L (3.5-5.1) 07/18/22 05:20 Chloride 106 mEq/L (98-107) 07/18/22 05:20 Carbon Dioxide 30 mEq/L (21-32) 07/18/22 05:20 Anion Gap 6.0 mEq/L (5.0-15.0) 07/18/22 05:20 BUN 18 mg/dL (7-18) 07/18/22 05:20 Creatinine 0.76 mg/dL (0.55-1.02) 07/18/22 05:20 Est GFR (CKD-EPI) 77 ml/min (=/>90) L 07/18/22 05:20 Glucose 67 mg/dL (74-106) L 07/18/22 05:20 Calcium 8.1 mg/dL (8.5-10.1) L 07/18/22 05:20 Magnesium 2.0 mg/dL (1.6-2.4) 07/18/22 05:20 Albumin 1.9 g/dL (3.4-5.0) L 07/18/22 05:20 Prealbumin 12.7 mg/dL (20-40) L 07/18/22 05:20 Urine Color Light-yellow (Yellow) 07/18/22 05:23 Urine Clarity Clear (Clear) 07/18/22 05:23 Urine pH 5.5 (5.0-7.0) 07/18/22 05:23 Ur Specific [place] 1.017 (1.005-1.030) 07/18/22 05:23 Glucose (UA)(Auto) Negative (Negative) 07/18/22 05:23 Urine Ketones Trace (Negative) H 07/18/22 05:23 Urine Blood Negative (Negative) 07/18/22 05:23 Urine Nitrite Negative (Negative) 07/18/22 05:23 Urine Bilirubin Negative (Negative) 07/18/22 05:23 Urine Urobilinogen Normal (Normal) 07/18/22 05:23 Ur Leukocyte Esterase 75 Elle/uL (Negative) H 07/18/22 05:23 Urine RBC <5 /HPF (None Seen) 07/18/22 05:23 Urine WBC 10-20 /HPF (<5) H 07/18/22 05:23 Ur Squamous Epith Cells <5 /HPF (None Seen) 07/18/22 05:23 Urine Bacteria <20 /HPF (<20) 07/18/22 05:23 Urine Mucus Slight /HPF (None Seen) 07/18/22 05:23 Urine Culture Reflexed Reflexed 07/18/22 05:23 Urine Total Protein Trace (Negative) H 07/18/22 05:23 Weight: 126 lb Wound Present: Yes Negative Pressure Wound Therapy Present: No Physician Update: 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 Mild anemia and moderate malnutrition on protein added to the diet. Moderate cognitive deficits. Bed mobility min assistance, walking 100' with rollator CGA, up and down 5 steps with CGA. With ADLs SBA to min assistance. Summary: Patient's care plan and buttermaker helper goals have been reviewed and revised as necessary. Please see the Rehabilitation Signature page for all necessary signatures.
[2022-07-18] MEDS: ENOXAPARIN 30 MG/0.3 ML SQ SCH (17:37)
[2022-07-18] MEDS: JUVEN PACKET PO SCH (20:31)
[2022-07-18] MEDS: ATORVASTATIN 40 MG TAB PO SCH (20:32)
[2022-07-19] MEDS: NYSTATIN PWDR 100000 UNIT/GM TOP SCH ×2 (08:00→19:33)
[2022-07-19] MEDS: SODIUM CHLORIDE 0.9% 10ML INJ IV SCH ×2 (08:00→19:02)
[2022-07-19] MEDS: METHYLSULFONYLMETHANE 1000 MG PO SCH (08:00)
[2022-07-19] MEDS: GLUCOSAMINE HCL 1000 MG PO SCH (08:00)
[2022-07-19] MEDS: Meropenem 1,000 MG in NA CHLORIDE 0.9% 100 ML IV SCH ×2 (09:45→19:01)
[2022-07-19] MEDS: CYANOCOBALAMIN 1,000 MCG TAB PO SCH (09:46)
[2022-07-19] MEDS: ASCORBIC ACID 500 MG TABLET PO SCH (09:46)
[2022-07-19] MEDS: LIDOCAINE 4% PATCH TOP SCH (09:46)
[2022-07-19] MEDS: ASPIRIN 81 MG CHEWABLE TABLET PO SCH (09:46)
[2022-07-19] MEDS: AZITHROMYCIN 250 MG TAB PO SCH (09:46)
[2022-07-19] MEDS: ESCITALOPRAM 20 MG TAB PO SCH (09:47)
[2022-07-19] MEDS: FAMOTIDINE 20 MG TAB PO SCH (09:47)
[2022-07-19] MEDS: CLOPIDOGREL 75 MG TABLET PO SCH (09:47)
[2022-07-19] MEDS: JUVEN PACKET PO SCH ×2 (09:50→19:14)
[2022-07-19] MEDS: ENSURE ENLIVE 237 ML CAN PO SCH ×2 (09:50→19:14)
[2022-07-19] MEDS: ENOXAPARIN 30 MG/0.3 ML SQ SCH (17:03)
[2022-07-19] MEDS: ATORVASTATIN 40 MG TAB PO SCH (19:32)
[2022-07-20] MEDS: NYSTATIN PWDR 100000 UNIT/GM TOP SCH ×3 (08:00→19:57)
[2022-07-20] MEDS: JUVEN PACKET PO SCH ×2 (08:00→19:57)
[2022-07-20] MEDS: METHYLSULFONYLMETHANE 1000 MG PO SCH (08:00)
[2022-07-20] MEDS: GLUCOSAMINE HCL 1000 MG PO SCH (08:00)
[2022-07-20] MEDS: LIDOCAINE 4% PATCH TOP SCH (08:17)
[2022-07-20] MEDS: CLOPIDOGREL 75 MG TABLET PO SCH (08:18)
[2022-07-20] MEDS: Meropenem 1,000 MG in NA CHLORIDE 0.9% 100 ML IV SCH ×2 (08:18→19:02)
[2022-07-20] MEDS: CYANOCOBALAMIN 1,000 MCG TAB PO SCH (08:18)
[2022-07-20] MEDS: FAMOTIDINE 20 MG TAB PO SCH (08:19)
[2022-07-20] MEDS: ENSURE ENLIVE 237 ML CAN PO SCH ×2 (08:19→19:57)
[2022-07-20] MEDS: AZITHROMYCIN 250 MG TAB PO SCH (08:19)
[2022-07-20] MEDS: ASCORBIC ACID 500 MG TABLET PO SCH (08:19)
[2022-07-20] MEDS: ASPIRIN 81 MG CHEWABLE TABLET PO SCH (08:19)
[2022-07-20] MEDS: ESCITALOPRAM 20 MG TAB PO SCH (08:19)
[2022-07-20] MEDS: SODIUM CHLORIDE 0.9% 10ML INJ IV SCH ×2 (08:19→19:56)
[2022-07-20] MEDS ORDERED: NA CHLORIDE 0.9% 250 ML ONE (13:54)
[2022-07-20] MEDS: ENOXAPARIN 30 MG/0.3 ML SQ SCH (17:05)
[2022-07-20] MEDS: ATORVASTATIN 40 MG TAB PO SCH (19:53)
[2022-07-21] MEDS: Meropenem 1,000 MG in NA CHLORIDE 0.9% 100 ML IV SCH ×2 (07:23→20:07)
[2022-07-21] MEDS: SODIUM CHLORIDE 0.9% 10ML INJ IV SCH ×2 (07:23→20:08)
[2022-07-21] MEDS: METHYLSULFONYLMETHANE 1000 MG PO SCH (08:00)
[2022-07-21] MEDS: GLUCOSAMINE HCL 1000 MG PO SCH (08:00)
[2022-07-21] MEDS: JUVEN PACKET PO SCH ×2 (08:00→20:00)
[2022-07-21] MEDS: ASCORBIC ACID 500 MG TABLET PO SCH (08:18)
[2022-07-21] MEDS: FAMOTIDINE 20 MG TAB PO SCH (08:18)
[2022-07-21] MEDS: AZITHROMYCIN 250 MG TAB PO SCH (08:18)
[2022-07-21] MEDS: CYANOCOBALAMIN 1,000 MCG TAB PO SCH (08:18)
[2022-07-21] MEDS: ASPIRIN 81 MG CHEWABLE TABLET PO SCH (08:18)
[2022-07-21] MEDS: CLOPIDOGREL 75 MG TABLET PO SCH (08:19)
[2022-07-21] MEDS: ESCITALOPRAM 20 MG TAB PO SCH (08:19)
[2022-07-21] MEDS: ENSURE ENLIVE 237 ML CAN PO SCH ×2 (08:20→20:00)
[2022-07-21] MEDS: LIDOCAINE 4% PATCH TOP SCH (12:11)
[2022-07-21] MEDS: NYSTATIN PWDR 100000 UNIT/GM TOP SCH ×2 (12:12→20:08)
--- NOTE | 2022-07-21 13:07 | P.PN ---
Subjective Date of Service: 07/21/22 Chief Complaint: DOING BETTER ON MERREM, ZPAK AND PT. Subjective: Improving SHE IS SITTING UP IN CHAIR, HAPPIER, COMMUNICATING WELL, EATING BF. SHE IS NOT CRYING ANY LONGER BEING ON LEXAPRO. Review of Systems 10-point ROS is otherwise unremarkable General: Weakness Physical Examination - Vital Signs Temperature: 97.5 F Blood Pressure: 133/52 Pulse: 65 Respirations: 16 Pulse Ox (%): 92 - Physical Exam General: Oriented x3, Mild distress HEENT: Atraumatic, PERRLA, EOMI Neck: Supple, JVD not distended Respiratory: Clear to auscultation bilaterally, Normal air movement Cardiovascular: Regular rate/rhythm, Normal S1 S2 Gastrointestinal: Normal bowel sounds, No tenderness Musculoskeletal: No tenderness Integumentary: No rashes Neurological: Normal speech, Normal tone, Normal affect Lymphatics: No axilla or inguinal lymphadenopathy - Studies Microbiology Data (last 24 hrs): 07/18/22 05:23 Clean Catch Urine [place] Count - Final BETWEEN 10,000 & 100,000 CFU/ML 07/18/22 05:23 Clean Catch Urine - Final Enterococcus Faecium Medications List Reviewed: Yes Assessment And Plan - Current Problems (Diagnosis) (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 SHE HAS JONO AND UNFORTUNATELY NOT EASY TO CURE. DR. DANIEL IS WORKING ON IT. (2) Generalized weakness Current Visit: No Status: Chronic Plan: GETTING BETTER. (3) Anxiety disorder Current Visit: Yes Status: Chronic Plan: LEXAPRO IS HELPING WELL.
[2022-07-21] MEDS ORDERED: ALBUTEROL 2.5 MG/3 ML NEB SOL NEB PRN (15:00)
[2022-07-21] MEDS: ENOXAPARIN 30 MG/0.3 ML SQ SCH (17:18)
[2022-07-21] MEDS: ATORVASTATIN 40 MG TAB PO SCH (20:07)
[2022-07-21 21:25] LABS: Specific Gravity 1.011 (1.005-1.030); Urine Bacteria None Seen /HPF (<20); Urine Bilirubin NEGATIVE (Negative); Urine Blood Negative (Negative); Urine Clarity Clear (Clear); Urine Color Light-Yellow (Yellow); Urine Glucose NEGATIVE (Negative); Urine Mucus Slight /HPF (None Seen); Urine Protein 1+ (Negative); Urine RBC <5 /HPF (None Seen); Urine Urobilinogen Normal (Normal); Urine pH 6.5 (5.0-7.0)
--- NOTE | 2022-07-22 01:55 | PN ---
Date of Progress Note: 07/21/2022 Time Of Service: 1:30 p.m. Subjective: Ms. Clayton is resting comfortably. She denies any significant issues. She is happy with her progress in rehab so far. Review of Systems: Aside from diffuse weakness, no fevers, chills, nausea, or vomiting. No significant myalgias or arthralgias. No new rash headache, or weight change. Physical Examination: Vital Signs: Blood pressure 133/52, pulse 65, respiratory rate 16, temperature 97.5, and oxygen saturation 92%. General: Ms. Clayton sitting in a chair beside the bed. She is in no significant distress. HEENT: She is normocephalic and atraumatic. Sclerae anicteric. Oropharynx is moist. Neck: Supple. Chest: Clear. Extremities: No significant edema. She has diffuse weakness proximally in upper and lower extremities. Laboratory Studies: No new laboratory studies. X-ray/imaging: No new x-rays or imaging studies. Medications: Albuterol nebulizer 2.5 mg every 6 hours as needed, Tylenol Extra Strength 500 mg every 4 hours, vitamin C 500 mg daily, aspirin 81 mg daily, Lipitor 40 mg at bedtime, she has Zithromax 500 mg daily, Plavix 75 mg daily, vitamin B12 500 mcg daily, Lovenox 30 mg subcutaneously daily, Pepcid 20 mg daily, Lexapro 20 mg daily, lidocaine patch apply topically daily, melatonin 3 at bedtime, meropenem 1000 mg every 12 hours, Ensure Enlive 237 mL twice daily, Mycostatin apply topically twice daily, Zofran 4 mg every 4 hours, and Senokot-S 2 at bedtime. It should be noted that her urine cultures did grow between 10,000 and 100,000 colony-forming units per mL of Enterococcus faecium. She has a straight cath pending to confirm or rule out this as a possible infection versus contaminant. Current Functional Status: Today, she did complete her therapy session with 2 L of oxygen. She did 20 sets x2 of a Thera-ball exercise. She also did wheelchair to edge of bed transfer and bed mobility with supervision. On her physical therapy, she covered 250 feet with a Rollator with 2 L of oxygen by nasal cannula with standby assistance. She also using hand rails in the hallway and complete 12 feet and sidestep left-right 4 steps, heel-toe walking 4 repetitions. Ambulated 150 feet back to her room. Oxygen saturation did drop to 87% to 88%, but after 2 minutes of rest, it came up to 93%. With speech therapy, she needed maximum verbal cues, used organizational thinking skills for divergent naming of categories by phoneme. With maximum cues, she was 80% accurate. External memory strategies training provided in order for her to recall details from visual scenes that was done with 90% accuracy. Progress Towards Rehabilitation Goals: Ms. Clayton is making fair progress so far with her goals of becoming independent with upper body dressing, toileting, transferring, showering, ambulating at least household distances and covering if possible to 150 feet and up and down 10 steps. She is also working on becoming independent with cognitive functioning including expression, comprehension, and memory. Assessment: Ms. 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 She has dehydration, hypokalemia, and diffuse weakness. Plan: 1. Physical, occupational, and speech therapy for 3.5 hours 5 to 7 days. 2. Continue meropenem. Antibiotics as listed for Mycobacterium infection. 3. Ensure Enlive 237 mL twice daily. 4. Zofran for nausea and vomiting. 5. Lexapro for depression. 6. Plavix and aspirin for stroke and myocardial infarction risk reduction. 7. Lipitor 40 mg daily for dyslipidemia. 8. Continue albuterol nebulizers for respiratory insufficiency. Comorbidities That Are Continuing To Impact Rehabilitation: She does have significant issues of lung requiring continuous oxygen and will desaturate because of her chronic mycobacterium and lung infection. She is likely to continue to require significant amount of oxygen, although she is again making some fair progress thus far. BETH/ROBEROT Voice ID: [id number] Report ID: [id number] JESÚS
[2022-07-22] MEDS: LIDOCAINE 4% PATCH TOP SCH (07:35)
[2022-07-22] MEDS: SODIUM CHLORIDE 0.9% 10ML INJ IV SCH ×2 (07:36→20:06)
[2022-07-22] MEDS: Meropenem 1,000 MG in NA CHLORIDE 0.9% 100 ML IV SCH ×2 (07:36→20:05)
[2022-07-22] MEDS: AZITHROMYCIN 250 MG TAB PO SCH (07:36)
[2022-07-22] MEDS: CYANOCOBALAMIN 1,000 MCG TAB PO SCH (07:37)
[2022-07-22] MEDS: ASPIRIN 81 MG CHEWABLE TABLET PO SCH (07:37)
[2022-07-22] MEDS: ESCITALOPRAM 20 MG TAB PO SCH (07:37)
[2022-07-22] MEDS: ENSURE ENLIVE 237 ML CAN PO SCH ×2 (07:38→20:00)
[2022-07-22] MEDS: ASCORBIC ACID 500 MG TABLET PO SCH (07:38)
[2022-07-22] MEDS: CLOPIDOGREL 75 MG TABLET PO SCH (07:38)
[2022-07-22] MEDS: FAMOTIDINE 20 MG TAB PO SCH (07:38)
[2022-07-22] MEDS: METHYLSULFONYLMETHANE PO SCH (07:53)
[2022-07-22] MEDS: GLUCOSAMINE PO SCH (07:53)
[2022-07-22] MEDS: NYSTATIN PWDR 100000 UNIT/GM TOP SCH ×2 (07:54→20:05)
[2022-07-22] MEDS: JUVEN PACKET PO SCH ×2 (08:00→20:00)
[2022-07-22] MEDS ORDERED: NA CHLORIDE 0.9% 250 ML ONE (09:36)
[2022-07-22] MEDS: ACETAMINOPHEN 500 MG TAB PO PRN (10:17)
[2022-07-22] MEDS: ENOXAPARIN 30 MG/0.3 ML SQ SCH (16:55)
[2022-07-22] MEDS: ATORVASTATIN 40 MG TAB PO SCH (20:05)
--- NOTE | 2022-07-22 21:27 | P.PN ---
Subjective Date of Service: 07/22/22 Chief Complaint: DOING BETTER ON MERREM, ZPAK AND PT. Subjective: Improving SHE IS SITTING UP IN CHAIR, HAPPIER, COMMUNICATING WELL, EATING BF. SHE IS NOT CRYING ANY LONGER BEING ON LEXAPRO. SHE IS STABLE AND HAPPY NOW. Review of Systems 10-point ROS is otherwise unremarkable Physical Examination - Vital Signs Temperature: 97.2 F Blood Pressure: 117/96 Pulse: 68 Respirations: 18 Pulse Ox (%): 92 - Physical Exam General: Alert, In no apparent distress HEENT: Atraumatic, PERRLA, EOMI Neck: Supple, JVD not distended Respiratory: Clear to auscultation bilaterally, Normal air movement Cardiovascular: Regular rate/rhythm, Normal S1 S2 Gastrointestinal: Normal bowel sounds, No tenderness Musculoskeletal: No tenderness Integumentary: No rashes Neurological: Normal speech, Normal tone, Normal affect Lymphatics: No axilla or inguinal lymphadenopathy - Studies Medications List Reviewed: Yes Assessment And Plan - Current Problems (Diagnosis) (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 SHE HAS JONO AND UNFORTUNATELY NOT EASY TO CURE. DR. DANIEL IS WORKING ON IT. CONT IV ABX. DAILY PT. (2) Generalized weakness Current Visit: No Status: Chronic Plan: GETTING BETTER. (3) Anxiety disorder Current Visit: Yes Status: Chronic Plan: LEXAPRO IS HELPING WELL.
--- NOTE | 2022-07-22 23:22 | PN ---
Date of Progress Note: 07/22/2022 [id number]-Xdub Progress Note Visit Time Of Service: 1:30 p.m. Subjective: Ms. Clayton is resting comfortably in bed. She had some questions about explaining her x-ray and the findings of her Mycobacterium avium complex infection and that was discussed and she wa s given a copy of the report of her chest scanning. She had no other complaints. Review of Systems: She does have diffuse weakness as noted and some shortness of breath, which is a limiting factor. Ot herwise, no rash or psychiatric issues. No genitourinary or gastrointestinal complaints. Physical Examination: Vital Signs: Blood pressure 130/56, pulse 65, respiratory rate 16, temperature 97.4, and oxygen satu ration 91%. General: Ms. Clayton is resting in bed in between therapy sessions. She is in no significant distre ss. HEENT: She is normocephalic, atraumatic. She has oxygen via nasal cannula. Lungs: Good air movement. Abdomen: Soft. Extremities: Some proximal weakness in the lower extremities, unchanged. Laboratory Studies: Complete blood count with differential from show hemoglobin of 9.1, hematoc rit 28.1, and white blood cell count 6.7 and chemistries from the show prealbumin 12.7, albumin 1.9, and electrolytes are all unremarkable. X-ray/imaging: No new x-ray or imaging results while in hospital. Medications: Have been reviewed and are unchanged. She is on chronic antibiotic therapy, which incl udes meropenem 1 g every 12 hours intravenously. In addition, she has azithromycin 500 mg daily madan g with medications for DVT prophylaxis, for helping with sleep, for constipation, and for dyslipidemi a and pain. Current Functional Status: Today she ambulated 250 feet and another 175 feet twice with a rolling wa lker and is standby assistance. She had 2 L of oxygen via nasal cannula. Oxygen saturation did drop to around 84% to 86%, but quickly recovered to 93% to 95% within 2 minutes of rest. She was able to ascend and descend 10 steps with standby assistance using bilateral handrails. With her occupationa l therapy, she did standing balance tolerance completed 2 x3 minutes arm bike exercises to increase u pper body strength. Her oxygen level at 3 minutes was 90% and 89% after a second trial. With her sp eech therapy, she did have some difficulty focusing and needed moderate assistance to name items duri ng a word retrieval puzzle. Progress Towards Rehabilitation Goals: Ms. Clayton is making fair progress overall towards her goals of becoming independent with upper and lower body dressing, transferring, toileting, showering, ambu lating household distances, going up and down 10 steps, and performing cognitive functioning independ ently. Assessment: Ms. Clayton is an 87-year-old patient in the rehabilitation unit with Mycobacterium aviu m intracellulare infection for which she is on multiple antibiotics. She has need for oxygen via jazmyne al cannula. She has dehydration, hypokalemia, diffuse weakness, depression, and dyslipidemia. Plan: 1.Continue physical and occupational along with speech therapy for 3.5 hours, 5 of 7 days. 2.Continue her meropenem and other antibiotics, which are chronic retirement. She had a total of 6 w eeks of IV meropenem. She has completed 1-1/2 weeks. 3.Continue Zofran for nausea, Lexapro for depression, and Plavix and aspirin for stroke and myocardi al infarction risk reduction. 4.Continue Lipitor for dyslipidemia. 5.Continue albuterol nebulizers for respiratory insufficiency. Comorbids That Are Continuing To Impact Rehabilitation: She required long-term antibiotics and is ma naging it well. Oxygen does desaturate and she will require oxygen via nasal cannula for a long time given the Mycobacterium avium infection. However, she is well understanding of this and is participating w anabel. BETH/ROBERTO Voice ID: [id number] Report ID: [id number]
[2022-07-23] MEDS: GLUCOSAMINE PO SCH (07:03)
[2022-07-23] MEDS: LIDOCAINE 4% PATCH TOP SCH (07:03)
[2022-07-23] MEDS: Meropenem 1,000 MG in NA CHLORIDE 0.9% 100 ML IV SCH ×2 (07:03→20:47)
[2022-07-23] MEDS: METHYLSULFONYLMETHANE PO SCH (07:03)
[2022-07-23] MEDS: NYSTATIN PWDR 100000 UNIT/GM TOP SCH ×2 (07:03→20:48)
[2022-07-23] MEDS: ASPIRIN 81 MG CHEWABLE TABLET PO SCH (07:04)
[2022-07-23] MEDS: ESCITALOPRAM 20 MG TAB PO SCH (07:04)
[2022-07-23] MEDS: AZITHROMYCIN 250 MG TAB PO SCH (07:04)
[2022-07-23] MEDS: SODIUM CHLORIDE 0.9% 10ML INJ IV SCH ×2 (07:04→20:48)
[2022-07-23] MEDS: FAMOTIDINE 20 MG TAB PO SCH (07:04)
[2022-07-23] MEDS: CYANOCOBALAMIN 1,000 MCG TAB PO SCH (07:04)
[2022-07-23] MEDS: CLOPIDOGREL 75 MG TABLET PO SCH (07:04)
[2022-07-23] MEDS: ASCORBIC ACID 500 MG TABLET PO SCH (07:04)
[2022-07-23] MEDS: ENSURE ENLIVE 237 ML CAN PO SCH ×2 (07:05→20:47)
[2022-07-23] MEDS: JUVEN PACKET PO SCH ×2 (07:05→20:00)
[2022-07-23] MEDS: ACETAMINOPHEN 500 MG TAB PO PRN (15:06)
[2022-07-23] MEDS ORDERED: LIDOCAINE 4% PATCH TOP ONE (17:19)
[2022-07-23] MEDS: ENOXAPARIN 30 MG/0.3 ML SQ SCH (17:41)
--- NOTE | 2022-07-23 17:51 | P.PN ---
Subjective Date of Service: 07/23/22 Chief Complaint: DOING BETTER ON MERREM, ZPAK AND PT. Subjective: Improving SHE IS SITTING UP IN CHAIR, HAPPIER, COMMUNICATING WELL, EATING BF. SHE IS NOT CRYING ANY LONGER BEING ON LEXAPRO. SHE IS STABLE AND HAPPY NOW. DOING GOOD. FEELS GOOD ON LEXAPRO THERE ARE NO CRYING OR ANGER EPISODES ON THIS MEDICINE. Review of Systems 10-point ROS is otherwise unremarkable Physical Examination - Vital Signs Temperature: 97.2 F Blood Pressure: 140/60 Pulse: 54 Respirations: 17 Pulse Ox (%): 93 - Physical Exam General: Alert, In no apparent distress HEENT: Atraumatic, PERRLA, EOMI Neck: Supple, JVD not distended Respiratory: Clear to auscultation bilaterally, Normal air movement Cardiovascular: Regular rate/rhythm, Normal S1 S2 Gastrointestinal: Normal bowel sounds, No tenderness Musculoskeletal: No tenderness Integumentary: No rashes Neurological: Normal speech, Normal tone, Normal affect Lymphatics: No axilla or inguinal lymphadenopathy - Studies Medications List Reviewed: Yes Assessment And Plan - Current Problems (Diagnosis) (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 SHE HAS JONO AND UNFORTUNATELY NOT EASY TO CURE. DR. DANIEL IS WORKING ON IT. CONT IV ABX. DAILY PT. (2) Generalized weakness Current Visit: No Status: Chronic Plan: GETTING BETTER. (3) Anxiety disorder Current Visit: Yes Status: Chronic Plan: LEXAPRO IS HELPING WELL. DOING GREAT NOW.
[2022-07-23] MEDS: ATORVASTATIN 40 MG TAB PO SCH (20:49)
--- NOTE | 2022-07-24 00:25 | PN ---
Date of Progress Note: 07/23/2022 Skfk-Zj-[id number] Progress Note Visit Time Of Service: 1:30 p.m. Subjective: Ms. Clayton is resting comfortably. She is in no significant distress. She is feeling better about how her therapy is going. 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 Review of Systems: She denies any fevers, chills, nausea, or vomiting. The shortness of breath, which is present due to her Mycobacterium avium infection has not worsened. She has no genitourinary or gastrointestinal co mplaints. Physical Examination: Vital Signs: Blood pressure 140/60, pulse 54, respiratory rate 17, temperature 97.2, and oxygen satu ration 93%. General: Ms. Clayton is sitting in a chair beside bed. She is in no significant distress. She cont inues to have oxygen via nasal cannula. HEENT: She is normocephalic, atraumatic. Sclerae anicteric. Oxygen via nasal cannula. Lungs: Good air movement. Extremities: No significant edema or cyanosis. Laboratory Studies: No new laboratory studies. X-ray/imaging: No new x-rays or imaging. Medications: Have been reviewed and remained unchanged compared to yesterday. Current Functional Status: Currently she ambulated 250 feet twice, another 175 feet twice with stand by assistance and a Rollator. Her oxygen level did drop to 68 to 88 post ambulating, but quickly inc reased to 92% to 96% 2 minutes after resting and deep breathing. She ascended and descended 15 steps with standby assistance using bilateral handrails. With her speech therapy, spaced retrieval was us ed to recall 3 unrelated pictures after time increments of 3 minutes, 5 minutes, and 10 minutes. She was very excited about being able to go home soon. Progress Towards Rehabilitation Goals: Ms. Clayton is making excellent progress towards her goals of becoming independent with upper and lower body dressing, toileting, showering, and ambulating 250 fe et with independence and up and down 10 steps with independence along with performing cognitive funct ioning with independence. Assessment: Ms. Clayton is in the rehabilitation unit with Mycobacterium avium intracellulare infect ion and she is on long-term antibiotics. She has oxygen dependency via nasal cannula and does well w ith that while ambulating. She has hypokalemia, diffuse weakness, depression, dyslipidemia, and dehy dration. Plan: 1.Continue with physical, occupational, and speech therapy 3.5 hours, 5 of 7 days. 2.Meropenem IV continued for total of 6 weeks and she is now completing 2 of those weeks. 3.Zofran for nausea. 4.Lexapro for depression. 5.Aspirin and Plavix for stroke and myocardial infarction risk reduction. 6.Continue Lipitor for dyslipidemia. 7.Continue nebulizers for respiratory insufficiency. 8.She has Dr. Summers following her for her comorbid conditions. Comorbids That Are Continuing To Impact Her Rehabilitation Process: At this point, the need for anti biotics is spaced in between her therapy sessions and is not stopping her. She does have continuous need for oxygen and that has to be done with portable oxygen device as she desaturates significantly when off oxygen. BETH/ROBERTO Voice ID: [id number] Report ID: [id number]
[2022-07-24] MEDS: Meropenem 1,000 MG in NA CHLORIDE 0.9% 100 ML IV SCH ×2 (07:15→19:01)
[2022-07-24] MEDS: JUVEN PACKET PO SCH (08:00)
[2022-07-24] MEDS: SODIUM CHLORIDE 0.9% 10ML INJ IV SCH ×2 (08:00→19:01)
[2022-07-24] MEDS: LIDOCAINE 4% PATCH TOP SCH (08:39)
[2022-07-24] MEDS: AZITHROMYCIN 250 MG TAB PO SCH (08:39)
[2022-07-24] MEDS: ASCORBIC ACID 500 MG TABLET PO SCH (08:40)
[2022-07-24] MEDS: CLOPIDOGREL 75 MG TABLET PO SCH (08:40)
[2022-07-24] MEDS: ESCITALOPRAM 20 MG TAB PO SCH (08:40)
[2022-07-24] MEDS: ASPIRIN 81 MG CHEWABLE TABLET PO SCH (08:40)
[2022-07-24] MEDS: FAMOTIDINE 20 MG TAB PO SCH (08:40)
[2022-07-24] MEDS: CYANOCOBALAMIN 1,000 MCG TAB PO SCH (08:40)
[2022-07-24] MEDS: NYSTATIN PWDR 100000 UNIT/GM TOP SCH ×2 (08:41→19:01)
[2022-07-24] MEDS: METHYLSULFONYLMETHANE PO SCH (08:50)
[2022-07-24] MEDS: GLUCOSAMINE PO SCH (08:50)
[2022-07-24] MEDS: ENSURE ENLIVE 237 ML CAN PO SCH ×2 (08:51→19:01)
[2022-07-24 12:14] LABS: Absolute Lymphocytes (CBC) 2.4 K/uL (0.7-4.9); Hematocrit 30.6 % (36.0-45.0); Lymphocytes % 27.5 % (15.3-44.8); MCV 90.1 fL (80-100); MPV 9.4 fL (7.6-11.3)
[2022-07-24 12:32] LABS: Potassium 4.1 mEq/L (3.5-5.1)
--- NOTE | 2022-07-24 12:51 | P.PN ---
Subjective Date of Service: 07/24/22 Chief Complaint: DOING BETTER ON MERREM, ZPAK AND PT. Subjective: Improving SHE IS SITTING UP IN CHAIR, HAPPIER, COMMUNICATING WELL, EATING BF. SHE IS NOT CRYING ANY LONGER BEING ON LEXAPRO. SHE IS STABLE AND HAPPY NOW. DOING GOOD. FEELS GOOD ON LEXAPRO THERE ARE NO CRYING OR ANGER EPISODES ON THIS MEDICINE. SHE IS STABLE TO GO HOME IN AM. Review of Systems 10-point ROS is otherwise unremarkable General: Weakness Physical Examination - Vital Signs Temperature: 97.7 F Blood Pressure: 144/65 Pulse: 78 Respirations: 19 Pulse Ox (%): 93 - Physical Exam General: Alert, In no apparent distress HEENT: Atraumatic, PERRLA, EOMI Neck: Supple, JVD not distended Respiratory: Clear to auscultation bilaterally, Normal air movement Cardiovascular: Regular rate/rhythm, Normal S1 S2 Gastrointestinal: Normal bowel sounds, No tenderness Musculoskeletal: No tenderness Integumentary: No rashes Neurological: Normal speech, Normal tone, Normal affect Lymphatics: No axilla or inguinal lymphadenopathy - Studies Laboratory Data (last 24 hrs) 07/24/22 12:02: Sodium 136, Potassium 4.1, BUN 14, Creatinine 0.96, Glucose 101 07/24/22 12:02: WBC 8.80, Hgb 9.9 L, Hct 30.6 L, Plt Count 273 Medications List Reviewed: Yes Assessment And Plan - Current Problems (Diagnosis) (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 SHE HAS JONO AND UNFORTUNATELY NOT EASY TO CURE. DR. DANIEL IS WORKING ON IT. CONT IV ABX. DAILY PT. (2) Generalized weakness Current Visit: No Status: Chronic Plan: GETTING BETTER. (3) Anxiety disorder Current Visit: Yes Status: Chronic Plan: LEXAPRO IS HELPING WELL. DOING GREAT NOW.
[2022-07-24] MEDS: ENOXAPARIN 30 MG/0.3 ML SQ SCH (16:31)
[2022-07-24] MEDS: AMINO ACIDS/PROTEIN HYDROLYS 30 ML LIQUID.PKT PO SCH (19:17)
[2022-07-24] MEDS: ATORVASTATIN 40 MG TAB PO SCH (19:58)
[2022-07-24 22:48] VITALS: O2SAT 95
--- NOTE | 2022-07-25 00:25 | PN ---
Date of Progress Note: 07/24/2022 Oicl-Ui-Ubdw Progress Note Visit Time Of Service: 1:30 p.m. Subjective: Ms. Clayton is in her room, doing very well. She has no new complaints. She is hard of hearing and does require slower and loud speech for her to comprehend. Otherwise, she has no new co mplaints. Review of Systems: No fevers or chills. No nausea or vomiting. She has mild fatigue with ambulation and does have shor tness of breath again, requiring oxygen. No genitourinary or gastrointestinal complaints. Physical Examination: Vital Signs: Blood pressure 144/65, pulse 78, respiratory rate 16, temperature 97.7, and oxygen satu ration 94% with 1.5 L via nasal cannula. General: Ms. Clayton is resting comfortably, speech pathologist is in the room. She has nasal cannu la in place. Neurologic: She has no focal cranial nerve deficits and in the upper and lower extremities she has d iffuse weakness. No focal deficits. Lungs: She has good air movement. Abdomen: Soft. Laboratory Studies: White blood cell count 8.8, hemoglobin 9.9, and platelets 273. Chemistry: Sodi um 136, potassium 4.1, chloride 103, carbon dioxide 30, BUN 14, creatinine 0.96, calcium 8.8, and glu cose 101. X-ray/imaging: No new x-rays or imaging. Medications: Have been reviewed and remained unchanged. Current Functional Status: Today she ambulated 250 feet twice, 125 feet twice, and another 175 feet independently using a Rollator. Oxygen was 2 L via nasal cannula. She did go between 87% to 88% pos t ambulation, but recovered to 92% to 94% within 2 minutes of rest. She did multiple jwa-uh-[id number] tr ansfers independently. She performed stand and pivot transfers independently with a rolling walker. With occupational therapy, she safely completed shower and did her dressing and all activities of da jennifer living safely with grab bars. With speech therapy, she demonstrated use of verbal rehearsal to r ecall 3 of 3 unrelated pictures after 5, 10, and 15 minute increments. Progress Towards Rehabilitation Goals: Ms. Clayton is making excellent progress towards her goals of becoming independent with upper and lower body dressing, toileting, transferring, ambulating over 25 0 feet independently, up and down 10 steps independently, and performing cognitive functioning indepe ndently. Progress Towards Rehabilitation Goals: Ms. Clayton is an 87-year-old patient in the rehabilitation [facility] with Mycobacterium avium intracellular infection and is on long-term antibiotics with meropenem. She is oxygen dependent via nasal cannula between 1.5 to 2 L. She has hypokalemia, diffuse weakness , depression, dyslipidemia, and dehydration. Plan: 1.Continue with physical, occupational, and speech therapy, 5 of 7 days. 2.Meropenem will be continued for 6 weeks. 3.Zofran for nausea. 4.Lexapro for depression. 5.Aspirin and Plavix for stroke and myocardial infarction risk reduction. 6.Lipitor for dyslipidemia. 7.Nebulizers for respiratory insufficiency. Comorbids That Continue To Impact Rehabilitation Process: She is doing very well so far and is close to being ready for discharge and will continue Home Health where she will continue IV antibiotics. BETH/ROBERTO Voice ID: [id number] Report ID: [id number]
[2022-07-25] MEDS: Meropenem 1,000 MG in NA CHLORIDE 0.9% 100 ML IV SCH (07:01)
[2022-07-25 07:43] VITALS: BP 145/65; TEMP 97.2
[2022-07-25] MEDS: LIDOCAINE 4% PATCH TOP SCH (07:55)
[2022-07-25] MEDS: CYANOCOBALAMIN 1,000 MCG TAB PO SCH (07:56)
[2022-07-25] MEDS: ASPIRIN 81 MG CHEWABLE TABLET PO SCH (07:56)
[2022-07-25] MEDS: NYSTATIN PWDR 100000 UNIT/GM TOP SCH (07:56)
[2022-07-25] MEDS: ASCORBIC ACID 500 MG TABLET PO SCH (07:57)
[2022-07-25] MEDS: AZITHROMYCIN 250 MG TAB PO SCH (07:57)
[2022-07-25] MEDS: ESCITALOPRAM 20 MG TAB PO SCH (07:57)
[2022-07-25] MEDS: FAMOTIDINE 20 MG TAB PO SCH (07:57)
[2022-07-25] MEDS: CLOPIDOGREL 75 MG TABLET PO SCH (07:57)
[2022-07-25] MEDS: ENSURE ENLIVE 237 ML CAN PO SCH (07:59)
[2022-07-25] MEDS: AMINO ACIDS/PROTEIN HYDROLYS 30 ML LIQUID.PKT PO SCH (07:59)
[2022-07-25] MEDS: SODIUM CHLORIDE 0.9% 10ML INJ IV SCH (07:59)
[2022-07-25] MEDS: GLUCOSAMINE PO SCH (08:00)
[2022-07-25] MEDS: METHYLSULFONYLMETHANE PO SCH (08:00)
--- NOTE | 2022-07-25 08:32 | P.RH.PN ---
Estimated Length of Stay: 12 Expected Discharge Date: 07/29/22 Discharge Disposition Plan: Home Family Support: Yes Detention Goal: Mobility, Transfers, Self Care Vital Signs: Last Vital Signs Temp 97.2 F 07/25/22 07:41 Pulse 61 07/25/22 07:41 Resp 17 07/25/22 07:41 BP 145/65 H 07/25/22 07:41 Pulse Ox 92 07/25/22 07:41 Laboratory: Laboratory Last Values WBC 8.80 thou/uL (4.3-10.9) 07/24/22 12:02 RBC 3.40 M/uL (3.86-4.86) L 07/24/22 12:02 Hgb 9.9 g/dL (12.0-15.0) L 07/24/22 12:02 Hct 30.6 % (36.0-45.0) L 07/24/22 12:02 MCV 90.1 fL (80-100) 07/24/22 12:02 MCH 29.3 pg (27.0-35.0) 07/24/22 12:02 MCHC 32.5 g/dL (32.0-36.0) 07/24/22 12:02 RDW 14.6 % (12.1-15.2) 07/24/22 12:02 Plt Count 273 thou/uL (152-406) 07/24/22 12:02 MPV 9.4 fL (7.6-11.3) 07/24/22 12:02 Neutrophils % 62.9 % (41.7-73.7) 07/24/22 12:02 Lymphocytes % 27.5 % (15.3-44.8) 07/24/22 12:02 Monocytes % 7.2 % (3.3-12.3) 07/24/22 12:02 Eosinophils % 1.6 % (0-4.4) 07/24/22 12:02 Basophils % 0.8 % (0-1.3) 07/24/22 12:02 Absolute Neutrophils 5.6 K/uL (1.8-8.0) 07/24/22 12:02 Absolute Lymphocytes 2.4 K/uL (0.7-4.9) 07/24/22 12:02 Absolute Monocytes 0.6 K/uL (0.1-1.3) 07/24/22 12:02 Absolute Eosinophils 0.1 K/uL (0-0.5) 07/24/22 12:02 Absolute Basophils 0.1 K/uL (0-0.5) 07/24/22 12:02 Sodium 136 mEq/L (136-145) 07/24/22 12:02 Potassium 4.1 mEq/L (3.5-5.1) 07/24/22 12:02 Chloride 103 mEq/L (98-107) 07/24/22 12:02 Carbon Dioxide 30 mEq/L (21-32) 07/24/22 12:02 Anion Gap 7.1 mEq/L (5.0-15.0) 07/24/22 12:02 BUN 14 mg/dL (7-18) 07/24/22 12:02 Creatinine 0.96 mg/dL (0.55-1.02) 07/24/22 12:02 Est GFR (CKD-EPI) 58 ml/min (=/>90) L 07/24/22 12:02 Glucose 101 mg/dL (74-106) 07/24/22 12:02 Calcium 8.8 mg/dL (8.5-10.1) 07/24/22 12:02 Magnesium 2.0 mg/dL (1.6-2.4) 07/18/22 05:20 Albumin 1.9 g/dL (3.4-5.0) L 07/18/22 05:20 Prealbumin 12.7 mg/dL (20-40) L 07/18/22 05:20 Urine Color Light-yellow (Yellow) 07/21/22 21:00 Urine Clarity Clear (Clear) 07/21/22 21:00 Urine pH 6.5 (5.0-7.0) 07/21/22 21:00 Ur Specific [place] 1.011 (1.005-1.030) 07/21/22 21:00 Glucose (UA)(Auto) Negative (Negative) 07/21/22 21:00 Urine Ketones Negative (Negative) 07/21/22 21:00 Urine Blood Negative (Negative) 07/21/22 21:00 Urine Nitrite Negative (Negative) 07/21/22 21:00 Urine Bilirubin Negative (Negative) 07/21/22 21:00 Urine Urobilinogen Normal (Normal) 07/21/22 21:00 Ur Leukocyte Esterase Negative Elle/uL (Negative) 07/21/22 21:00 Urine RBC <5 /HPF (None Seen) 07/21/22 21:00 Urine WBC None seen /HPF (<5) 07/21/22 21:00 Ur Squamous Epith Cells <5 /HPF (None Seen) 07/21/22 21:00 U Non-Squamous Epi Cells <5 /HPF (None Seen) 07/21/22 21:00 Urine Bacteria None seen /HPF (<20) 07/21/22 21:00 Urine Mucus Slight /HPF (None Seen) 07/21/22 21:00 Urine Culture Reflexed Not needed 07/21/22 21:00 Urine Total Protein 1+ (Negative) H 07/21/22 21:00 Weight: 126 lb Wound Present: Yes Closed Surgical Incision Present: No Negative Pressure Wound Therapy Present: No Physician Update: Labs reviewed with slight dehydration. She will continue IV antibiotics for total of 6 weeks. She will need to continue home oxygen. Independent with all physical therapy goals. Deficits in executive functioning. Independent with ADL with extended time. He has help at home. To be discharged home today with [facility]. 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 Please see the Rehabilitation Signature page for all necessary signatures.
--- NOTE | 2022-07-25 21:53 | P.PN ---
Subjective Date of Service: 07/25/22 Chief Complaint: DOING BETTER ON MERREM, ZPAK AND PT. Subjective: Improving SHE IS SITTING UP IN CHAIR, HAPPIER, COMMUNICATING WELL, EATING BF. SHE IS NOT CRYING ANY LONGER BEING ON LEXAPRO. SHE IS STABLE AND HAPPY NOW. DOING GOOD. FEELS GOOD ON LEXAPRO THERE ARE NO CRYING OR ANGER EPISODES ON THIS MEDICINE. SHE IS STABLE TO GO HOME IN AM. JASON IS DOING GOOD. DR. MCARTHUR CALLED SHE COULD NOT AFFORD MERREM. I ASKED HIM TO CALL DR. DANIEL DO DISCUSS. Physical Examination - Vital Signs Temperature: 97.2 F Blood Pressure: 145/65 Pulse: 61 Respirations: 17 Pulse Ox (%): 92 - Physical Exam General: In no apparent distress HEENT: Atraumatic, PERRLA, EOMI Neck: Supple, JVD not distended Respiratory: Clear to auscultation bilaterally, Normal air movement Cardiovascular: Regular rate/rhythm, Normal S1 S2 Gastrointestinal: Normal bowel sounds, No tenderness Musculoskeletal: No tenderness Integumentary: No rashes Neurological: Normal speech, Normal tone, Normal affect Lymphatics: No axilla or inguinal lymphadenopathy - Studies Medications List Reviewed: Yes Assessment And Plan - Current Problems (Diagnosis) (1) Atypical mycobacterium infection Status: Chronic Plan: RESUME MERREM AND Z OLIVER. SHE HAS JONO AND UNFORTUNATELY NOT EASY TO CURE. DR. DANIEL IS WORKING ON IT. CONT IV ABX. DAILY PT. TO FU WITH DR. DANIEL AFTER FIRST TWO DAYS OF QUESTIONS AND DISCUSSIONS FAMILY HAS NOT ASKED FOR ANY CLARIFICATIONS. (2) Generalized weakness Status: Chronic Plan: GETTING BETTER. (3) Anxiety disorder Status: Chronic Plan: LEXAPRO IS HELPING WELL. DOING GREAT NOW.
== END 2022-07-25 11:35 | disposition home health service (06) | DRG 179 ==
LOC: 5TH 10:55
PROVIDERS: ADMIT Psychiatry & Neurology Neurology with Special Qualifications in Child Neurology; ATTEND Psychiatry & Neurology Neurology with Special Qualifications in Child Neurology
DX: A31.0 Pulmonary mycobacterial infection (principal); J44.9 Chronic obstructive pulmonary disease, unspecified; I10 Essential (primary) hypertension; E78.5 Hyperlipidemia, unspecified; I25.10 Atherosclerotic heart disease of native coronary artery without angina pectoris; E86.0 Dehydration; E87.6 Hypokalemia; R53.1 Weakness; F41.9 Anxiety disorder, unspecified; R11.0 Nausea; F32.A Depression, unspecified; Z99.81 Dependence on supplemental oxygen
CPT/HCPCS: 36415; 80048; 81001; 82040; 83735; 84134; 85025; 87077; 87086; 87088; 87186; 92523; 97110; 97112; 97116; 97129; 97161; 97165; 97530; J1650; J2001; J2185; J7050

== ENCOUNTER → 2023-03-24 | Emergency (ER) | payer OTHER ==
[~2023-03-24] MED LIST: HYDROCODONE/APAP 5/325 MG TAB ONE; ONDANSETRON 4 MG (ODT) TAB ONE; TDAP (DIPHTH,PERTUSS(ACELL),TET VAC) 0.5 ML VIAL IMVAC ONE
--- NOTE | 2023-03-24 05:48 | EDPHYS ---
Physician Documentation [facility] Name: Su Clayton Age: 88 yrs Sex: Female : 1935 Arrival Date: 03/24/2023 Time: 03:27 Bed 16 Private MD: ED Physician Toni Landon HPI: 03/24 03:38 This 88 yrs old Female presents to ER via Unassigned with complaints of fall .sp4 05:13 This is a very pleasant 88-year-old female with history of COPD, hyperlipidemia, sp4 hypertension, lung mass, poor balance. Patient presents after acute fall at home sideways onto her right side. Patient fell and sustained diffuse spinal pain, associated with right elbow pain, right elbow skin tear, bilateral knee pain and right foot pain. Arrived with EMS on scene oxygen supplementation. Patient states she is on oxygen at home [id number]. . Historical: - Allergies: 03:43 No Known Allergies; nw1 - PMHx: 03:43 COPD; Hyperlipidemia; Hypertension; Lung mass; niidm; nw1 - PSHx: 03:43 Bipass; Carotid artery; nw1 - Immunization history:: Adult Immunizations up to date, Client reports receiving the 2nd dose of the Covid vaccine, Last tetanus immunization: up to date. - Social history:: Smoking status: Patient/guardian denies using tobacco, the patient reports quitting approximately 14 years ago. - Family history:: not pertinent. ROS: 05:13 Constitutional: Negative for fever, chills, and weight loss, negative acute fall, sp4 positive back pain, positive neck pain, positive for right elbow pain, positive right elbow skin tear, positive bilateral knee pain, positive right foot pain Eyes: Negative for injury, pain, redness, and discharge, 05:13 All other systems are negative, Exam: 05:13 Constitutional: This is a well developed, well nourished patient who is awake, alert, sp4 elderly frail woman on oxygen supplementation. Signs of immobility and physical deconditioning. Head/Face: Normocephalic, atraumatic. Eyes: Pupils equal round and reactive to light, extra-ocular motions intact. Lids and lashes normal. Conjunctiva and sclera are not injected. Cornea within normal limits. Periorbital areas with no swelling, redness, or edema. ENT: Nares patent. No nasal discharge, no septal abnormalities noted. Tympanic membranes are normal and external auditory canals are clear. Oropharynx with no redness, swelling, or masses, exudates, or evidence of obstruction, uvula midline. Mucous membranes moist. Neck: Trachea midline, no thyromegaly or masses palpated, and no cervical lymphadenopathy. Supple, full range of motion without nuchal rigidity, or vertebral point tenderness. Chest/axilla: Normal chest wall appearance and motion. Nontender with no deformity. No lesions are appreciated. Cardiovascular: Regular rate and rhythm with a normal S1 and S2. No gallops, murmurs, or rubs. Normal PMI, no JVD. No pulse deficits. Respiratory: Lungs have equal breath sounds bilaterally, clear to auscultation and percussion. No rales, rhonchi or wheezes noted. No increased work of breathing, no retractions or nasal flaring. Abdomen/GI: Soft, non-tender, with normal bowel sounds. No distension or tympany. No guarding or rebound. No evidence of tenderness throughout. Back: No spinal tenderness. No costovertebral tenderness. Skin: Warm, dry with normal turgor. Normal color with no rashes, no lesions, and no evidence of cellulitis. MS/ Extremity: Pulses equal, no cyanosis. Neurovascular intact. Full, normal range of motion. RICE elbow skin tear to right elbow contusion, bilateral knee tenderness, right foot tenderness without deformity, overall intact peripheral pulses, intact neurovascular status of all extremities Neuro: Awake and alert, GCS 15, oriented to person, place, time, and situation. Cranial nerves II-XII grossly intact. Motor strength 5/5 in all extremities. Sensory grossly intact. Psych: Awake, alert, with orientation to person, place and time. Behavior, mood, and affect are within normal limits Vital Signs: 03:40 BP 178 / 57; Pulse 64; Resp 15; Temp 97.5(O); Pulse Ox 99% on 2 lpm NC; Weight 63.5 kg; nw1 Height 5 ft. 4 in. ; Pain 6/10; 05:30 BP 158 / 69; Pulse 59; Resp 15; Pulse Ox 96% on 3 lpm NC; nw1 03:40 Body Mass Index 24.03 (63.50 kg, 162.56 cm) nw1 03:40 Pain Scale: Adult nw1 03:40 ON O2 AT HOME nw1 Apple Coma Score: 05:30 Eye Response: spontaneous(4). Motor Response: obeys commands(6). Verbal Response: nw1 oriented(5). Total: 15. MDM: 03:39 Patient medically screened. sp4 05:09 ED course: CLINICAL HISTORY: The patient is 88 years old and is Female; fall pain sp4 TECHNIQUE: Three views of the right foot. COMPARISON: No relevant prior studies available. FINDINGS: Bones/joints: No acute fracture visualized. Diffuse bone demineralization. Calcaneus spur. Achilles enthesophyte. No dislocation. Soft tissues: Unremarkable. No radiopaque foreign body. Vasculature: Atherosclerotic calcification. IMPRESSION: No acute findings in the right foot. . ED course: EXAM: XR Right Elbow, 2 Views CLINICAL HISTORY: The patient is 88 years old and is Female; fall pain, TECHNIQUE: Two views of the right elbow. COMPARISON: No relevant prior studies available. FINDINGS: Bones/joints: Bone demineralization. No acute fracture visualized. No significant arthropathy. Limited evaluation for effusion secondary to positioning. No dislocation. Soft tissues: Unremarkable. IMPRESSION: Bone demineralization. No acute fracture visualized. . ED course: EXAM: XR Right Knee, 1 or 2 Views CLINICAL HISTORY: The patient is 88 years old and is Female; fall , pain TECHNIQUE: Two views of the right knee. COMPARISON: No relevant prior studies available. FINDINGS: Bones/joints: Bone demineralization. No acute fracture visualized. Meniscal calcifications consistent with chondrocalcinosis. No dislocation. No significant effusion. Soft tissues: Unremarkable. Vasculature: Atherosclerotic calcification. IMPRESSION: Bone demineralization. No acute fracture visualized. ED course: EXAM: XR Left Knee, 1 or 2 Views CLINICAL HISTORY: The patient is 88 years old and is Female; fall TECHNIQUE: Frontal and/or lateral views of the left knee. COMPARISON: No relevant prior studies available. FINDINGS: Bones/joints: Tricompartmental narrowing. Osteopenia. There may be a small suprapatellar joint effusion. No acute fracture. No dislocation. Soft tissues: Unremarkable. IMPRESSION: No acute fracture or dislocation. . 05:37 Data reviewed: vital signs, nurses notes, radiologic studies, CT scan, plain films. ED sp4 course: CT - IMPRESSION: CT Head and Cervical Spine Without Intravenous Contrast: 1. No intracranial hemorrhage. No acute skull fracture. 2. Mild age related periventricular white matter microangiopathic changes. 3. No acute cervical spine fracture visualized. 4. 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 CT Chest, Abdomen and Pelvis Without Intravenous Contrast: 1. No evidence of acute injury in the chest, abdomen or pelvis. 2. Right apical cavitation with pleural thickening, pleural calcification and air-fluid level, which may be sequela of prior infection. The fluid is new compared with the prior exam, with the remaining findings unchanged/chronic. Additional chronic findings in the lungs including bronchiectasis again visualized. 3. Small hiatal hernia. 4. Cholelithiasis. 5. Colonic diverticulosis. 6. Additional non-emergent findings as above.. 05:45 Differential Diagnosis altered mental status, sepsis, flu. ED course: Stable for sp4 discharge home. Wound care provided for the right elbow skin tear. . 03/24 03:38 Order name: CT Traumagram (Head C Spine CAP wo con) sp4 03/24 03:39 Order name: Knee Left 2 View XRAY sp4 03/24 03:39 Order name: Knee Right 2 View XRAY sp4 03/24 03:40 Order name: Elbow Right 2 View XRAY sp4 03/24 03:40 Order name: Foot Right 3 View XRAY sp4 03/24 03:40 Order name: Wound Care; Complete Time: 03:55 sp4 Administered Medications: 04:12 Drug: Tetanus-Diphtheria Toxoid IM Adult 0.5 ml IM once; Provide Vaccine Information nw1 Statement (VIS). 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: [employer] Exp: ThuMar 21 2025; Lot #: [id number]; Series: 1 of 1; Patient Consent: Obtained; Date/Time: ; Source Name: Su Clayton; Source Relationship: Self; Address Information: [address] [place] [address]; ; Education: Provided; VIS Presented Date: ; VIS Publication: Tetanus/Diphtheria (Td) VIS 05/03/2013 (historic); Vaccine Funding Eligibility: Medicaid (may be called by state-specific name, e.g., [facility]); Vaccine Funding Source: Public} Route: IM; Site: right deltoid; 04:19 Drug: Ondansetron PO 4 mg PO once Route: PO; nw1 04:24 Drug: HYDROcodone-acetaminophen PO 5 mg-325 mg 2 tabs PO once Route: PO; nw1 Disposition Summary: 03/24/23 05:47 Discharge Ordered Notes: Location: Home sp4 Problem: new sp4 Symptoms: have improved sp4 Condition: Stable sp4 Diagnosis - Contusion of right elbow sp4 - Fall at home, acute back pain, acute right elbow skin tear, acute bilateral knee sp4 contusion, acute right foot pain with contusion, chronic right upper lung mass Followup: sp4 - With: Private Physician - When: 7 - 10 days - Reason: Recheck today's complaints Discharge Instructions: - Discharge Summary Sheet sp4 - Elbow Contusion, [id number] sp4 Forms: - Patient Portal Instructions sp4 Prescriptions: - acetaminophen-codeine 300-30 mg Oral tablet - take 1 tablet ORAL route every 6 hours PRN pain; 20 tablet; Refills: 0, Product sp4 Selection Permitted Signatures: Dispatcher [employer] Toni Rey MD MD sp4 Sera Marquis RN RN nw1
--- NOTE | 2023-03-24 05:48 | ER ---
Nurse's Notes [facility] Name: Su Clayton Age: 88 yrs Sex: Female : 1935 Arrival Date: 03/24/2023 Time: 03:27 Bed 16 Private MD: Diagnosis: Contusion of right elbow;Fall at home, acute back pain, acute right elbow skin tear, acute bilateral knee contusion, acute right foot pain with contusion, chronic right upper lung mass Presentation: 03/24 03:40 Chief complaint: EMS states: GROUND LEVEL FALL. DENIES LOC. ENDORSES BLOOD THINNERS. nw1 DENIES HITTING HEAD. Coronavirus screen: Vaccine status: Patient reports receiving the 2nd dose of the covid vaccine. Client denies travel out of the [place] in the last 14 days. At this time, the client does not indicate any symptoms associated with coronavirus-19. Ebola Screen: Patient negative for fever greater than or equal to 101.5 degrees Fahrenheit, and additional compatible Ebola Virus Disease symptoms Patient denies exposure to infectious person. Patient denies travel to an Ebola-affected area in the 21 days before illness onset. No symptoms or risks identified at this time. Complicating Factors: There are no complicating factors for this patient. Initial Sepsis Screen: Does the patient meet any 2 criteria? No. Patient's initial sepsis screen is negative. Does the patient have a suspected source of infection? No. Patient's initial sepsis screen is negative. Risk Assessment: Do you want to hurt yourself or someone else? Patient reports no desire to harm self or others. Onset of symptoms was March 24, 2023. 03:40 Method Of Arrival: EMS: [facility] nw1 03:40 Acuity: MARLINE 3 nw1 Triage Assessment: 03:43 General: Appears in no apparent distress. comfortable, Behavior is calm, cooperative, nw1 appropriate for age. Pain: Complains of pain in right arm. EENT: No deficits noted. No signs and/or symptoms were reported regarding the EENT system. Neuro: Level of Consciousness is awake, alert, obeys commands, Oriented to person, place, time, situation, Appropriate for age Research Fellow are equal bilaterally. Cardiovascular: Reports None Heart tones present. Derm: Skin is fragile, is thin, has skin tears on RIGHT ELBOW. Musculoskeletal: No signs and/or symptoms reported regarding the musculoskeletal system. Injury Description: Laceration sustained to right elbow. Historical: - Allergies: 03:43 No Known Allergies; nw1 - PMHx: 03:43 COPD; Hyperlipidemia; Hypertension; Lung mass; niidm; nw1 - PSHx: 03:43 Bipass; Carotid artery; nw1 Historical Immunization: - Administered Vaccines 04:24 HYDROcodone-acetaminophen PO 5 mg-325 mg 2 tabs 04:19 Ondansetron PO 4 mg nw 04:12 Tetanus-Diphtheria Toxoid IM Adult 0.5 ml nw Attraction Attendant: Yostro; Exp: ThuMar 21 2025; Lot #: [id number]; Series: 1 of 1; Patient Consent: Obtained; Date/Time: ; Source Name: Su Clayton; Source Relationship: Self; Address Information: [address] [place] [address], [place] [address]; ; Education: Provided; VIS Presented Date: ; VIS Publication: Tetanus/Diphtheria (Td) VIS 05/03/2013 (historic); Vaccine Funding Eligibility: Medicaid (may be called by state-specific name, e.g., [facility]); Vaccine Funding Source: Public - Immunization history:: Adult Immunizations up to date, Client reports receiving the 2nd dose of the Covid vaccine, Last tetanus immunization: up to date. - Social history:: Smoking status: Patient/guardian denies using tobacco, the patient reports quitting approximately 14 years ago. - Family history:: not pertinent. Screenin:45 [facility] ED Fall Risk Assessment (Adult) History of falling in the last 3 months, nw1 including since admission Yes- single mechanical fall (1 pt) Confusion or Disorientation No (0 pts) Intoxicated or Sedated No (0 pts) Impaired Gait Yes (1 pt) Mobility Assist Device Used Yes (1 pt) Altered Elimination No (0 pt) Score/Fall Risk Level 3 or more points = High Risk Oriented to surroundings, Maintained a safe environment, Educated pt \T\ family on fall prevention, incl call for assistance when getting out of bed, Assessed \T\ reinforced patient's understanding of fall precautions, Provided non-skid footwear, Hourly rounding (assess needs \T\ fall precautionary measures) done, Used ambulatory aids as needed (educated on \T\ assisted with). Abuse screen: Denies threats or abuse. Denies injuries from another. Nutritional screening: No deficits noted. Tuberculosis screening: No symptoms or risk factors identified. Assessment: 03:45 Reassessment: PT STATES FALL WHEN GETTING OUT OF BED. DENIES LOC, HITTING HEAD. nw1 ENDORSES BLOOD THINNERS. PMHX OF COPD AND ON HOME O2 OF 2L. PT STATES SHE WALKS WITH A WALKER. BLEEDING CONTROLLED ON LACERATION UPON ARRIVAL. Reassessment: SEE TRIAGE ASSESSMENT. 05:29 Reassessment: PT'S WOUND RE-DRESSED AND CLEANED. FAMILY AT BEDSIDE. DAUGHTER REQUEST TO nw1 BE CALLED WITH DISCHARGE OR ANY OTHER FOLLOW UP INFORMATION: VIRGEN [phone]. 06:03 Reassessment: PT'S DAUGHTER NOTIFIED OF DISCHARGE AND WILL HAVE HER IDENTIFICATION OFFICER SORTER LUMBER STRAIGHTENER nw1 PATIENT. PT UNABLE TO BE DISCHARGED AT THIS TIME. 06:55 Reassessment: DAUGHTER HERE TO DISCHARGE BUT FORGOT PATIENT'S PORTABLE OXYGEN. DAUGHTER nw1 SIGNED PAPERWORK AND STATES SHE WILL GO AND SORTER LUMBER STRAIGHTENER OXYGEN FROM PATIENT'S HOME AND WILL RETURN TO SORTER LUMBER STRAIGHTENER PATIENT. WILL NOTIFY UPCOMING STAFF. Vital Signs: 03:40 BP 178 / 57; Pulse 64; Resp 15; Temp 97.5(O); Pulse Ox 99% on 2 lpm NC; Weight 63.5 kg; nw1 Height 5 ft. 4 in. ; Pain 6/10; 05:30 BP 158 / 69; Pulse 59; Resp 15; Pulse Ox 96% on 3 lpm NC; nw1 03:40 Body Mass Index 24.03 (63.50 kg, 162.56 cm) nw1 03:40 Pain Scale: Adult nw1 03:40 ON O2 AT HOME nw1 [place] Coma Score: 05:30 Eye Response: spontaneous(4). Motor Response: obeys commands(6). Verbal Response: nw1 oriented(5). Total: 15. ED Course: 03:37 Patient arrived in ED. rv1 03:37 Toni Landon MD is Attending Physician. sp4 03:38 Sera Marquis RN is Primary Nurse. nw1 03:43 Triage completed. nw1 03:43 Arm band placed on left wrist. CLEANED. nw1 03:45 Patient has correct armband on for positive identification. Placed in gown. Bed in low nw1 position. Call light in reach. Side rails up X2. Adult w/ patient. Provided Education on: POC. Pulse ox on. NIBP on. Door closed. Warm blanket given. 03:45 Assist provider with laceration repair. nw1 04:07 Knee Left 2 View XRAY In Process Unspecified. EDMS 04:07 Knee Right 2 View XRAY In Process Unspecified. EDMS 04:07 Elbow Right 2 View XRAY In Process Unspecified. EDMS 04:08 Foot Right 3 View XRAY In Process Unspecified. EDMS 04:31 CT Traumagram (Head C Spine CAP wo con) In Process Unspecified. EDMS 05:30 Patient did not have IV access during this emergency room visit. nw1 Administered Medications: 04:12 Drug: Tetanus-Diphtheria Toxoid IM Adult 0.5 ml IM once; Provide Vaccine Information nw1 Statement (VIS). {Attraction Attendant: Yostro; Exp: ThuMar 21 2025; Lot #: [id number]; Series: 1 of 1; Patient Consent: Obtained; Date/Time: ; Source Name: Su Clayton; Source Relationship: Self; Address Information: [address] [place] [address]; ; Education: Provided; VIS Presented Date: ; VIS Publication: Tetanus/Diphtheria (Td) VIS 05/03/2013 (historic); Vaccine Funding Eligibility: Medicaid (may be called by state-specific name, e.g., [facility]); Vaccine Funding Source: Public} Route: IM; Site: right deltoid; 04:19 Drug: Ondansetron PO 4 mg PO once Route: PO; nw1 04:24 Drug: HYDROcodone-acetaminophen PO 5 mg-325 mg 2 tabs PO once Route: PO; nw1 Medication: 03:45 VIS not applicable for this client. nw1 Outcome: 05:47 Discharge ordered by MD. charles 07:42 Patient left the ED. ph Signatures: Dispatcher [employer] Dina Dc RN RN Dary [place]cca rv1 Toni Landon MD MD sp4 Sera Marquis RN RN nw1
[2023-03-24 08:27] VITALS: BP 158/69; TEMP 97.5; O2SAT 96
--- NOTE | 2023-03-24 11:35 | RAD REPORT ---
EXAM DESCRIPTION: CT - Head C Spine Cap Wo Con - 03/24/2023 6:35 am CLINICAL HISTORY: The patient is 88 years old and is Female; fall TECHNIQUE: Axial computed tomography images of the head/brain and cervical spine without intravenous contrast. Sagittal and coronal reformatted images were created and reviewed. This CT exam was pe rformed using one or more of the following dose reduction techniques: automated exposure control, a djustment of the mA and/or kV according to patient size, and/or use of iterative reconstruction techn ique. COMPARISON: No relevant prior studies available. FINDINGS: Brain: Mild age related periventricular white matter microangiopathic changes. No hemorrhage. Ventricles: Unremarkable. No ventriculomegaly. Skull: No acute fracture. Sinuses: Right maxillary sinus mucous retention cyst. Mastoid air cells: Unremarkable as visualized. No mastoid fluid. Vertebrae: No acute cervical spine fracture visualized. Straightening of the normal lordotic curvature. No traumatic malalignment. Discs/spinal canal/neural foramina: C3-4 disc herniation with mild central canal stenosis. Degenerative disc disease C5-6. Soft tissues: Unremarkable. Lung apices: See CT chest abdomen pelvis report. * A single impression for all exams can be found at the end of this report EXAM: CT Chest, Abdomen and Pelvis Without Intravenous Contrast CLINICAL HISTORY: The patient is 88 years old and is Female; fall TECHNIQUE: Axial computed tomography images of the chest, abdomen and pelvis without intravenous con trast. Sagittal and coronal reformatted images were created and reviewed. This CT exam was perfor med using one or more of the following dose reduction techniques: automated exposure control, adjus tment of the mA and/or kV according to patient size, and/or use of iterative reconstruction technique . COMPARISON: CT chest July 14, 2022. CT abdomen and pelvis July 12, 2022. FINDINGS: CHEST: Lungs: Innumerable calcified granulomata in the lungs, right greater than left. Right lower lobe pleuroparenchymal scarring. Linear scarring right middle lobe. Centrilobular and paraseptal emphysema. No mass. No consolidation. Pleural space: Right apical cavitation again visualized with associated right upper lobe pleuropa renchymal scarring and bronchiectasis. There is now an air-fluid level with increased pleural thicken ing. No pleural effusion. No pneumothorax. Heart: Unremarkable. No cardiomegaly. No significant pericardial effusion. No significant c oronary artery calcifications. Mediastinum: Small hiatal hernia. No pneumomediastinum. ABDOMEN: Liver: Unremarkable. Gallbladder and bile ducts: Cholelithiasis. No ductal dilation. Pancreas: Unremarkable. No ductal dilation. Spleen: Unremarkable. No splenomegaly. Adrenals: Unremarkable. No mass. Kidneys and ureters: Unremarkable. No obstructing stones. No hydronephrosis. Stomach and bowel: Colonic diverticulosis. No bowel dilatation or obstruction. No bowel wall thickening. PELVIS: Appendix: No findings to suggest acute appendicitis. Bladder: Unremarkable. No stones. Reproductive: Small uterus. No adnexal mass. CHEST, ABDOMEN and PELVIS: Intraperitoneal space: Unremarkable. No significant fluid collection. No free air. Bones/joints: No sternal fracture. No sternoclavicular joint dislocation. No thoracic or lumbar c ompression fracture. Scoliosis. Multilevel degenerative disc disease in the thoracic spine. No acute fracture in the pelvis or proximal femora. No hip dislocation. Soft tissues: Unremarkable. Vasculature: Moderate atherosclerotic calcification. No aortic aneurysm. Lymph nodes: Unremarkable. No enlarged lymph nodes. * A single impression for all exams can be found at the end of this report IMPRESSION: CT Head and Cervical Spine Without Intravenous Contrast: 1. No intracranial hemorrhage. No acute skull fracture. 2. Mild age related periventricular white matter microangiopathic changes. 3. No acute cervical spine fracture visualized. 4. 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 CT Chest, Abdomen and Pelvis Without Intravenous Contrast: 1. No evidence of acute injury in the chest, abdomen or pelvis. 2. Right apical cavitation with pleural thickening, pleural calcification and air-fluid level, whic h may be sequela of prior infection. The fluid is new compared with the prior exam, with the remainin g findings unchanged/chronic. Additional chronic findings in the lungs including bronchiectasis aga in visualized. 3. Small hiatal hernia. 4. Cholelithiasis. 5. Colonic diverticulosis. 6. Additional non-emergent findings as above. Electronically signed by: Katty Grigsby MD 03/24/2023 05:20 AM CARGO SERVICE SUPERVISOR Due to temporary technical issues with the PACS/Fluency reporting system, reports are being signed by the in house radiologists without review as a courtesy to insure prompt reporting. The interpreting radiologist is fully responsible for the content of the report.
--- NOTE | 2023-03-24 11:42 | RAD REPORT ---
EXAM DESCRIPTION: RAD - Foot Right 3 View - 03/24/2023 4:06 am CLINICAL HISTORY: The patient is 88 years old and is Female; fall pain TECHNIQUE: Three views of the right foot. COMPARISON: No relevant prior studies available. FINDINGS: Bones/joints: No acute fracture visualized. Diffuse bone demineralization. Calcaneus spur. Achilles enthesophyte. No dislocation. Soft tissues: Unremarkable. No radiopaque foreign body. Vasculature: Atherosclerotic calcification. IMPRESSION: No acute findings in the right foot. Electronically signed by: Katty Grigsby MD 03/24/2023 04:37 AM ENGINEERING OFFICER Due to temporary technical issues with the PACS/Fluency reporting system, reports are being signed by the in house radiologists without review as a courtesy to insure prompt reporting. The interpreting radiologist is fully responsible for the content of the report.
--- NOTE | 2023-03-24 11:56 | RAD REPORT ---
EXAM DESCRIPTION: RAD - Knee Right 2 View - 03/24/2023 4:06 am CLINICAL HISTORY: The patient is 88 years old and is Female; fall , pain TECHNIQUE: Two views of the right knee. COMPARISON: No relevant prior studies available. FINDINGS: Bones/joints: Bone demineralization. No acute fracture visualized. Meniscal calcifications consistent with chondrocalcinosis. No dislocation. No significant effusion. Soft tissues: Unremarkable. Vasculature: Atherosclerotic calcification. IMPRESSION: Bone demineralization. No acute fracture visualized. Electronically signed by: Katty Grigsby MD 03/24/2023 04:35 AM DIRECTOR INSURANCE Due to temporary technical issues with the PACS/Fluency reporting system, reports are being signed by the in house radiologists without review as a courtesy to insure prompt reporting. The interpreting radiologist is fully responsible for the content of the report.
--- NOTE | 2023-03-24 12:06 | RAD REPORT ---
EXAM DESCRIPTION: RAD - Elbow Right 2 View - 03/24/2023 4:06 am CLINICAL HISTORY: The patient is 88 years old and is Female; fall pain, TECHNIQUE: Two views of the right elbow. COMPARISON: No relevant prior studies available. FINDINGS: Bones/joints: Bone demineralization. No acute fracture visualized. No significant arthropathy. Limited evaluation for effusion secondary to positioning. No dislocation. Soft tissues: Unremarkable. IMPRESSION: Bone demineralization. No acute fracture visualized. Electronically signed by: Katty Grigsby MD 03/24/2023 04:36 AM CARPET JOURNEYMAN Due to temporary technical issues with the PACS/Fluency reporting system, reports are being signed by the in house radiologists without review as a courtesy to insure prompt reporting. The interpreting radiologist is fully responsible for the content of the report.
--- NOTE | 2023-03-24 16:08 | RAD REPORT ---
EXAM DESCRIPTION: RAD - Knee Left 2 View - 03/24/2023 4:06 am CLINICAL HISTORY: The patient is 88 years old and is Female; fall TECHNIQUE: Frontal and/or lateral views of the left knee. COMPARISON: No relevant prior studies available. FINDINGS: Bones/joints: Tricompartmental narrowing. Osteopenia. There may be a small suprapatellar joint effusion. No acute fracture. No dislocation. Soft tissues: Unremarkable. IMPRESSION: No acute fracture or dislocation. Electronically signed by: Kody Dwyer MD 03/24/2023 04:36 AM TIRE REPAIRMAN Due to temporary technical issues with the PACS/Fluency reporting system, reports are being signed by the in house radiologists without review as a courtesy to insure prompt reporting. The interpreting radiologist is fully responsible for the content of the report.
== END ==
LOC: ER 03:27
DX: S51.011A Laceration without foreign body of right elbow, initial encounter (principal); S80.02XA Contusion of left knee, initial encounter; S80.01XA Contusion of right knee, initial encounter; S50.01XA Contusion of right elbow, initial encounter; S90.31XA Contusion of right foot, initial encounter; W18.30XA Fall on same level, unspecified, initial encounter; M54.9 Dorsalgia, unspecified; R91.8 Other nonspecific abnormal finding of lung field; I10 Essential (primary) hypertension; J44.9 Chronic obstructive pulmonary disease, unspecified; Z23 Encounter for immunization
CPT/HCPCS: 70450; 71250; 72125; 73630; 73070; 73560 ×2; 90471; 99284; Q0162